=== PATIENT | female | born 1930 | race Caucasian/White ===

== ENCOUNTER 2017-04-17 15:28 | Inpatient (IN) | payer MEDICARE, OTHER ==
[2017-04-17] MEDS ORDERED: Sodium Chloride 0.9% 10 ML Syringe FLUSH PRN (16:00)
--- NOTE | 2017-04-17 16:06 | EDM.PDOC ---
ED HPI GENERAL MEDICAL PROBLEM - General Chief Complaint: Neurological Problem Stated Complaint: WEAK, BACK PAIN, CONFUSED, LOSS OF APPETITE Time Seen by Provider: 04/17/17 15:45 Source of Information: Reports: Patient, Family (mother) History Limitations: Reports: No Limitations - History of Present Illness INITIAL COMMENTS - FREE TEXT/NARRATIVE: Patient is a 86 year old female with history of Multiple Myeloma. Patient states she has been increasingly more fatigued over the past few days. States she can barely standup and ambulate with walker on her own accord. States she is feeling really weak. Past two evening she has slid out of bed requiring assistance up due to increased weakness. States two nights ago EMS utilized belt to help her up with increasing pain noted to the middle portion of her back. States she does bruise easily and has noted bruising to her back and arms. She did not hit her head or LOC. Patient continues to have pain to her back today described as only minor increase. Patient has history of T12 wedge fracture. Family states patient has been spending more time in bed recently due to weakness. Patient does wear a fentanyl 10 mg patch for pain. Denies any changes to medications. In addition the patient has lack of appetite. Family states noticed mild increase in confusion with repeated questions noted. Patient denies any fever/chills/nausea/vomiting, shortness of breath, chest pain , bloody stools, melena, or pain with urination. Family and patient are arranging changing code status from level 2 to DNR. Onset: Gradual Duration: Constant, Getting Worse, Waxing/Waning Location: Reports: Generalized Quality: Reports: Other (weakness) Improves with: Reports: None Worsens with: Reports: Other Context: Reports: Other Associated Symptoms: Reports: Confusion (mild), Malaise, Weakness. Denies: Chest Pain, Cough, Fever/Chills, Headaches, Nausea/Vomiting, Shortness of Breath , Syncope Treatments INSPECTOR EYEGLASS: Reports: Other (see below) (none stated) Lower Back Pain Score (Numeric/FACES): 10 - Related Data Allergies Allergy/AdvReac Type Severity Reaction Status Date / Time aspirin Allergy Swelling Verified 04/02/17 16:01 bacitracin Allergy Cannot Verified 04/02/17 16:01 [From Neosporin Remember ([id number])] bacitracin zinc Allergy Cannot Verified 05/09/17 16:01 [From Neosporin Remember ([id number])] carvedilol Allergy Itching Verified 04/02/17 16:01 neomycin sulfate Allergy Cannot Verified 04/02/17 16:01 [From Neosporin Remember ([id number])] Penicillins Allergy Itching Verified 04/02/17 16:01 polymyxin B Allergy Cannot Verified 04/02/17 16:01 [From Neosporin Remember ([id number])] prednisone Allergy Swollen Verified 04/02/17 16:01 Eyes sertraline HCl [From Zoloft] Allergy Swelling Verified 04/02/17 16:01 Sulfa (Sulfonamide Allergy Cannot Verified 04/02/17 16:01 Antibiotics) Remember Home Meds: Home Meds Glimepiride [Amaryl] 2 mg PO DAILY 03/14/16 [History] LORazepam 0.5 mg PO BEDTIME 03/14/16 [History] Primidone 50 mg PO BEDTIME 03/14/16 [History] Cholecalciferol (Vitamin D3) [Vitamin D] 2,000 mg PO DAILY 11/14/16 [History] Cyanocobalamin (Vitamin B-12) [Vitamin B-12] 1,000 mcg PO DAILY 11/14/16 [ History] LORazepam [Ativan] 0.25 mg PO QAM 11/14/16 [History] Methylphenidate HCl [Methylphenidate ER] 36 mg PO DAILY 11/14/16 [History] Sennosides [Senna] 2 tab PO ASDIRECTED PRN 11/14/16 [History] Ubidecarenone [Co Q-10] 40 mg PO DAILY 11/14/16 [History] Furosemide 20 mg PO DAILY #30 tablet 11/16/16 [Rx] Losartan [Cozaar] 25 mg PO DAILY 04/02/17 [History] Allopurinol [Zyloprim] 100 mg PO DAILY 04/04/17 [History] Aspirin [Low Dose Aspirin EC] 81 mg PO DAILY 04/04/17 [History] B&C/FA/Zinc/Copper Oxide/Vit E [Stress B-Complex Tablet] 1 tab PO DAILY [History] Clopidogrel Bisulfate [Plavix] 75 mg PO DAILY 04/04/17 [History] Hydrocodone/Acetaminophen [Hydrocodon-Acetaminophen 5-325] 2 tab PO QAM [History] Lidocaine 5% [Lidoderm 5%] 1 patch TOP Q24H 04/04/17 [History] Metoprolol Succinate [Toprol XL] 1 tab PO DAILY 04/04/17 [History] SitaGLIPtin [Januvia] 100 mg PO DAILY 04/04/17 [History] Acetaminophen [Tylenol Extra Strength] 500 mg PO Q6HR PRN 04/17/17 [History] Losartan [Cozaar] 25 mg PO BEDTIME 04/17/17 [History] MV-Mn/Lycop/Lut/Herbal [id number] [Phytomulti Tablet] 2 each PO DAILY 04/17/17 [ History] fentaNYL [Duragesic] 12 mcg TRDERM Q72H 04/17/17 [History] Past Medical History HEENT History: Reports: Impaired Vision Other HEENT History: multiple implants in mouth Cardiovascular History: Reports: High Cholesterol, Hypertension, SOB on Exertion Genitourinary History: Reports: Other (See Below) Other Genitourinary History: dribbles Musculoskeletal History: Reports: Arthritis Psychiatric History: Reports: Anxiety Endocrine/Metabolic History: Reports: Diabetes, Type II Hematologic History: Reports: Anemia, Iron Deficiency Oncologic (Cancer) History: Reports: Breast Other Oncologic History: multiple myloma - Past Surgical History HEENT Surgical History: Reports: Cataract Surgery GI Surgical History: Reports: Cholecystectomy Musculoskeletal Surgical History: Reports: Hip Replacement Social & Family History - Family History Family Medical History: Noncontributory - Tobacco Use Smoking Status *Q: Never Smoker Second Hand Smoke Exposure: No - Caffeine Use Caffeine Use: Reports: None Other Caffeine Use: Diet Coke---at least 1 per day - Recreational Drug Use Recreational Drug Use: No ED ROS GENERAL - Review of Systems Review Of Systems: See Below Constitutional: Reports: Malaise, Weakness, Decreased Appetite. Denies: Fever, Chills HEENT: Reports: No Symptoms Respiratory: Denies: Shortness of Breath, Cough, Sputum, Hemoptysis Cardiovascular: Denies: Chest Pain, Lightheadedness, Orthopnea, Palpitations, PND, Syncope GI/Abdominal: Reports: Decreased Appetite. Denies: Abdominal Pain, Black Stool , Bloody Stool, Constipation, Diarrhea, Hematemesis, Melena, Nausea, Vomiting : Denies: Dysuria Musculoskeletal: Reports: Back Pain (chronic no new changes) Skin: Reports: Bruising (present noted to the back and also forearms and) Neurological: Reports: Confusion (mild), Difficulty Walking (secondary weakness) , Weakness. Denies: Dizziness, Headache, Numbness, Tingling Hematologic/Lymphatic: Reports: Anemia, Easy Bleeding, Easy Bruising ED EXAM, GENERAL - Physical Exam Exam: See Below Exam Limited By: No Limitations General Appearance: Alert, WD/WN, No Apparent Distress Eye Exam: Bilateral Eye: PERRL Ears: Hearing Grossly Normal Nose: Normal Mucosa Throat/Mouth: Normal Inspection, Normal Oropharynx, Normal Voice, No Airway Compromise, Other (mildly dry oral mucosa) Head: Atraumatic, Normocephalic Neck: Normal Inspection, Supple, Non-Tender, Full Range of Motion. No: Lymphadenopathy (L), Lymphadenopathy (R) Respiratory/Chest: No Respiratory Distress, Lungs Clear, Normal Breath Sounds, No Accessory Muscle Use, Chest Non-Tender Cardiovascular: Normal Peripheral Pulses, Regular Rate, Rhythm Peripheral Pulses: 2+: Radial (L), Radial (R) GI/Abdominal: Normal Bowel Sounds, Soft, Non-Tender, No Organomegaly, No Distention Rectal (Female) Exam: Normal Rectal Tone, Black Stool, Heme + Stool. No: Tenderness Back Exam: Full Range of Motion, Other (presenting noted laterally to the spine around the T12 location bilaterally. No increased swelling noted. Minimal pain on examination). No: Paraspinal Tenderness, Vertebral Tenderness Extremities: Normal Inspection, Normal Range of Motion, Non-Tender, Normal Capillary Refill, Pedal Edema (trace), Other (multiple old bruises noted to the forearm.) Neurological: Alert, Oriented, CN II-XII Intact, Normal Cognition, No Motor/ Sensory Deficits Psychiatric: Normal Affect, Normal Mood Skin Exam: Warm, Dry, Intact, Normal Color Course - Vital Signs Last Recorded V/S: Last Vital Signs Temp 97.8 F 04/17/17 15:37 Pulse 79 04/17/17 15:37 Resp 18 04/17/17 15:37 BP Pulse Ox 95 04/17/17 15:37 - Orders/Labs/Meds Orders: Active Orders 24 hr Category Date Time Status Communication Order [RC] STAT Care 04/17/17 18:23 Active EKG Documentation Completion [RC] STAT Care 04/17/17 16:00 Active Glucose [Blood Glucose Check, Bedside] [RC] ONETIME Care 04/17/17 17:39 Active Peripheral IV Care [RC] . DIRECTED Care 04/17/17 16:01 Active CULTURE URINE [RM] Stat Lab 04/17/17 16:45 Received TYPE AND SCREEN [BBK] Stat Lab 04/17/17 15:45 Results Sodium Chloride 0.9% [Saline Flush] Med 04/17/17 16:00 Active 10 ml FLUSH ASDIRECTED PRN Peripheral IV Insertion Adult [OM.PC] Stat Oth 04/17/17 16:00 Ordered Transfuse PRBC [Transfuse Red Blood Cells] [COMM] Stat Oth 04/17/17 16:29 Ordered Medication Orders Acetaminophen (Tylenol) 650 mg PO Q4H PRN PRN Reason: Pain (Mild 1-3)/fever Hydrocodone Bitart/Acetaminophen (Touchet 325-5 Mg) 2 tab PO QAM [facility] Hydrocodone Bitart/Acetaminophen (Touchet 325-5 Mg) 1 tab PO Q4H PRN PRN Reason: Pain (moderate 4-6) Albuterol (Proventil Neb Soln) 2.5 mg NEB Q2H PRN PRN Reason: Shortness Of Breath/wheezing Allopurinol (Zyloprim) 100 mg PO DAILY [facility] Aspirin (Halfprin) 81 mg PO DAILY [facility] Bisacodyl (Dulcolax) 5 mg PO DAILY PRN PRN Reason: Constipation Cholecalciferol (Vitamin D3) 2,000 units PO DAILY [facility] Clopidogrel Bisulfate (Plavix) 75 mg PO DAILY [facility] Cyanocobalamin (Vitamin B12) 1,000 mcg PO DAILY [facility] Docusate Sodium (Colace) 100 mg PO BID PRN PRN Reason: Constipation Fentanyl (Duragesic) 12 mcg TRDERM Q72H [facility] Furosemide (Lasix) 20 mg PO DAILY [facility] Glimepiride (Amaryl) 2 mg PO DAILY [facility] Hydralazine HCl (Apresoline) 10 mg IVPUSH Q4H PRN PRN Reason: Hypertension Promethazine HCl 12.5 mg/ (Sodium Chloride) 50.5 mls @ 100 mls/hr IV Q6H PRN PRN Reason: Nausea/Vomiting Lidocaine (Lidoderm 5%) mg TOP Q24H [facility] Lorazepam (Ativan) 0.25 mg PO QAM [facility] Lorazepam (Ativan) 0.5 mg PO BEDTIME [facility] Lorazepam (Ativan) 0.25 mg IV Q6H PRN PRN Reason: Anxiety Losartan Potassium (Cozaar) 25 mg PO BEDTIME [facility] Magnesium Sulfate (Pharmacy To Dose - Magnesium Replacement) 1 dose .XX ASDIRECTED [facility] Metoprolol Succinate (Toprol Xl) 100 mg PO DAILY [facility] Metoprolol Tartrate (Lopressor) 5 mg IVPUSH Q4H PRN PRN Reason: Tachycardia Miscellaneous Information (Remove Patch) 1 ea TRDERM Q72H [facility] Non-Formulary Medication (Acetaminophen) 500 mg PO Q6HR PRN PRN Reason: Pain Non-Formulary Medication (B&C/Fa/Zinc/Copper Oxide/Vit E [Stress B-Complex Tablet]) 1 tab PO DAILY [facility] Non-Formulary Medication (Mv-Mn/Lycop/Lut/Herbal [id number] [Phytomulti Tablet]) 2 each PO DAILY [facility] Non-Formulary Medication (Methylphenidate Hcl [Methylphenidate Er]) 36 mg PO DAILY [facility] Non-Formulary Medication (Ubidecarenone [Co Q-10]) 40 mg PO DAILY [facility] Ondansetron HCl (Zofran) 4 mg IV Q6H PRN PRN Reason: Nausea/Vomiting Polyethylene Glycol (Miralax) 17 gm PO DAILY PRN PRN Reason: Constipation Potassium Chloride (Pharmacy To Dose - Potassium Replacement) 1 dose .XX ASDIRECTED [facility] Primidone (Mysoline) 50 mg PO BEDTIME [facility] Senna (Senna) mg PO ASDIRECTED PRN PRN Reason: Constipation Senna/Docusate Sodium (Senna Plus) 1 tab PO BID PRN PRN Reason: Constipation Sitagliptin Phosphate (Januvia) 100 mg PO DAILY [facility] Sodium Chloride (Saline Flush) 10 ml FLUSH ASDIRECTED PRN PRN Reason: Keep Vein Open Last Admin: 04/17/17 16:15 Dose: 10 ml Temazepam (Restoril) 7.5 mg PO BEDTIME PRN PRN Reason: Sleep Labs: Laboratory Tests 04/17/17 04/17/17 04/17/17 Range/Units 15:45 15:45 15:45 WBC 5.78 (3.98-10.04) K/mm3 RBC 2.24 L (3.98-5.22) M/mm3 Hgb 6.7 L* (11.2-15.7) gm/L Hct 21.8 L (34.1-44.9) % MCV 97.3 H (79.4-94.8) fl MCH 29.9 (25.6-32.2) pg MCHC 30.7 L (32.2-35.5) g/dl RDW Std Deviation 62.2 H (36.4-46.3) fL Plt Count 289 (182-369) K/mm3 MPV 8.3 L (9.4-12.3) fl Neut % (Auto) 59.2 (34.0-71.1) % Lymph % (Auto) 26.0 (19.3-51.7) % [place] % (Auto) 11.6 (4.7-12.5) % Eos % (Auto) 1.9 (0.7-5.8) Baso % (Auto) 0.3 (0.1-1.2) % Neut # (Auto) 3.42 (1.56-6.13) K/mm3 Lymph # (Auto) 1.50 (1.18-3.74) K/mm3 [place] # (Auto) 0.67 H (0.24-0.36) K/mm3 Eos # (Auto) 0.11 (0.04-0.36) K/mm3 Baso # (Auto) 0.02 (0.01-0.08) K/mm3 Manual Slide Review Abnormal smear Sodium 136 (136-145) mEq/L Potassium 4.6 (3.5-5.1) mEq/L Chloride 106 (98-107) mEq/L Carbon Dioxide 19 L (21-32) mEq/L Anion Gap TNP BUN TNP Creatinine TNP Est Cr Clr Drug Dosing TNP Estimated GFR (MDRD) TNP BUN/Creatinine Ratio TNP Glucose TNP Calcium TNP Total Bilirubin TNP AST TNP ALT TNP Alkaline Phosphatase 73 (46-116) U/L Troponin I 0.050 (0.00-0.056) ng/mL B-Natriuretic Peptide (0-100) pg/mL Total Protein TNP Albumin TNP Globulin TNP Albumin/Globulin Ratio TNP TSH 3rd Generation 0.706 (0.358-3.74) uIU/mL Urine Color (Yellow) Urine Appearance (Clear) Urine pH (5.0-8.0) Ur Specific [place] (1.005-1.030) Urine Protein (Negative) Urine Glucose (UA) (Negative) Urine Ketones (Negative) Urine Occult Blood (Negative) Urine Nitrite (Negative) Urine Bilirubin (Negative) Urine Urobilinogen (0.2-1.0) Ur Leukocyte Esterase (Negative) Urine RBC (0-5) /hpf Urine WBC (0-5) /hpf Ur Epithelial Cells (0-5) /hpf Urine Bacteria (FEW) /hpf Hyaline Casts (0-5) /lpf Urine Mucus (FEW) /hpf Blood Type O POSITIVE Gel Antibody Screen Negative Crossmatch See Detail 04/17/17 04/17/17 Range/Units 15:45 16:45 WBC (3.98-10.04) K/mm3 RBC (3.98-5.22) M/mm3 Hgb (11.2-15.7) gm/L Hct (34.1-44.9) % MCV (79.4-94.8) fl MCH (25.6-32.2) pg MCHC (32.2-35.5) g/dl RDW Std Deviation (36.4-46.3) fL Plt Count (182-369) K/mm3 MPV (9.4-12.3) fl Neut % (Auto) (34.0-71.1) % Lymph % (Auto) (19.3-51.7) % [place] % (Auto) (4.7-12.5) % Eos % (Auto) (0.7-5.8) Baso % (Auto) (0.1-1.2) % Neut # (Auto) (1.56-6.13) K/mm3 Lymph # (Auto) (1.18-3.74) K/mm3 [place] # (Auto) (0.24-0.36) K/mm3 Eos # (Auto) (0.04-0.36) K/mm3 Baso # (Auto) (0.01-0.08) K/mm3 Manual Slide Review Sodium (136-145) mEq/L Potassium (3.5-5.1) mEq/L Chloride (98-107) mEq/L Carbon Dioxide (21-32) mEq/L Anion Gap BUN Creatinine Est Cr Clr Drug Dosing Estimated GFR (MDRD) BUN/Creatinine Ratio Glucose Calcium Total Bilirubin AST ALT Alkaline Phosphatase (46-116) U/L Troponin I (0.00-0.056) ng/mL B-Natriuretic Peptide 1650 H (0-100) pg/mL Total Protein Albumin Globulin Albumin/Globulin Ratio TSH 3rd Generation (0.358-3.74) uIU/mL Urine Color [place] H (Yellow) Urine Appearance Slt cloudy H (Clear) Urine pH 5.5 (5.0-8.0) Ur Specific [place] 1.020 (1.005-1.030) Urine Protein 2+ H (Negative) Urine Glucose (UA) Negative (Negative) Urine Ketones Negative (Negative) Urine Occult Blood Trace-lysed H (Negative) Urine Nitrite Negative (Negative) Urine Bilirubin Negative (Negative) Urine Urobilinogen 0.2 (0.2-1.0) Ur Leukocyte Esterase Negative (Negative) Urine RBC 0-5 (0-5) /hpf Urine WBC 0-5 (0-5) /hpf Ur Epithelial Cells 10-20 H (0-5) /hpf Urine Bacteria Moderate H (FEW) /hpf Hyaline Casts 5-10 H (0-5) /lpf Urine Mucus Moderate H (FEW) /hpf Blood Type Gel Antibody Screen Crossmatch Meds: Medications Generic Name Dose Route Start Last Admin Trade Name Freq PRN Reason Stop Dose Admin Acetaminophen 650 mg 04/17/17 19:54 Tylenol PO Q4H PRN Pain (Mild 1-3)/fever Hydrocodone Bitart/Acetaminophen 2 tab 04/18/17 08:00 Touchet 325-5 Mg PO QAM CARM[facility]A Hydrocodone Bitart/Acetaminophen 1 tab 04/17/17 19:54 Touchet 325-5 Mg PO Q4H PRN Pain (moderate 4-6) Albuterol 2.5 mg 04/17/17 19:54 Proventil Neb Soln NEB Q2H PRN Shortness Of Breath/wheezing Allopurinol 100 mg 04/18/17 09:00 Zyloprim PO DAILY [facility] Aspirin 81 mg 04/18/17 09:00 Halfprin PO DAILY [facility] Bisacodyl 5 mg 04/17/17 19:54 Dulcolax PO DAILY PRN Constipation Cholecalciferol 2,000 units 04/18/17 09:00 Vitamin D3 PO DAILY [facility] Clopidogrel Bisulfate 75 mg 04/18/17 09:00 Plavix PO DAILY [facility] Cyanocobalamin 1,000 mcg 04/18/17 09:00 Vitamin B12 PO DAILY [facility] Docusate Sodium 100 mg 04/17/17 19:54 Colace PO BID PRN Constipation Fentanyl 12 mcg 04/18/17 08:00 Duragesic TRDERM Q72H [facility] Furosemide 20 mg 04/18/17 09:00 Lasix PO DAILY [facility] Glimepiride 2 mg 04/18/17 09:00 Amaryl PO DAILY [facility] Hydralazine HCl 10 mg 04/17/17 19:54 Apresoline IVPUSH Q4H PRN Hypertension Promethazine HCl 12.5 mg/ 50.5 mls @ 100 mls/hr 04/17/17 19:54 Sodium Chloride IV Q6H PRN Nausea/Vomiting Lidocaine mg 04/17/17 20:00 Lidoderm 5% TOP Q24H [facility] Lorazepam 0.25 mg 04/18/17 08:00 Ativan PO QAM [facility] Lorazepam 0.5 mg 04/17/17 21:00 Ativan PO BEDTIME [facility] Lorazepam 0.25 mg 04/17/17 19:54 Ativan IV Q6H PRN Anxiety Losartan Potassium 25 mg 04/17/17 21:00 Cozaar PO BEDTIME [facility] Magnesium Sulfate 1 dose 04/17/17 20:00 Pharmacy To Dose - Magnesium Replacement .XX ASDIRECTED [facility] Metoprolol Succinate 100 mg 04/18/17 09:00 Toprol Xl PO DAILY [facility] Metoprolol Tartrate 5 mg 04/17/17 19:54 Lopressor IVPUSH Q4H PRN Tachycardia Miscellaneous Information 1 ea 04/18/17 08:00 Remove Patch TRDERM Q72H [facility] Non-Formulary Medication 500 mg 04/17/17 19:52 Acetaminophen PO Q6HR PRN Pain Non-Formulary Medication 1 tab 04/18/17 09:00 B&C/Fa/Zinc/Copper Oxide/Vit E [Stress B-Complex Tablet] PO DAILY [facility] Non-Formulary Medication 2 each 04/18/17 09:00 Mv-Mn/Lycop/Lut/Herbal [id number] [Phytomulti Tablet] PO DAILY [facility] Non-Formulary Medication 36 mg 04/18/17 09:00 Methylphenidate Hcl [Methylphenidate Er] PO DAILY [facility] Non-Formulary Medication 40 mg 04/18/17 09:00 Ubidecarenone [Co Q-10] PO DAILY [facility] Ondansetron HCl 4 mg 04/17/17 19:54 Zofran IV Q6H PRN Nausea/Vomiting Polyethylene Glycol 17 gm 04/17/17 19:54 Miralax PO DAILY PRN Constipation Potassium Chloride 1 dose 04/17/17 20:00 Pharmacy To Dose - Potassium Replacement .XX ASDIRECTED [facility] Primidone 50 mg 04/17/17 21:00 Mysoline PO BEDTIME [facility] Senna mg 04/17/17 19:52 Senna PO ASDIRECTED PRN Constipation Senna/Docusate Sodium 1 tab 04/17/17 19:54 Senna Plus PO BID PRN Constipation Sitagliptin Phosphate 100 mg 04/18/17 09:00 Januvia PO DAILY [facility] Sodium Chloride 10 ml 04/17/17 16:00 04/17/17 16:15 Saline Flush FLUSH 10 ml ASDIRECTED PRN Administration Keep Vein Open Temazepam 7.5 mg 04/17/17 19:54 Restoril PO BEDTIME PRN Sleep Discontinued Medications Generic Name Dose Route Start Last Admin Trade Name Freq PRN Reason Stop Dose Admin Acetaminophen 650 mg 04/17/17 17:03 04/17/17 17:07 Tylenol PO 04/17/17 17:04 650 mg NOW ONE Administration Furosemide 20 mg 04/17/17 16:29 04/17/17 16:49 Lasix IVPUSH 04/17/17 16:30 20 mg NOW ONE Administration Furosemide 20 mg 04/17/17 18:18 Lasix IVPUSH 04/17/17 18:19 ONETIME ONE Sodium Chloride 500 mls @ 250 mls/hr 04/17/17 16:27 04/17/17 16:49 Normal Saline IV 04/17/17 18:26 250 mls/hr .BOLUS ONE Administration Non-Formulary Medication 25 mg 04/18/17 09:00 Losartan PO DAILY [facility] - Re-Assessments/Exams Free Text/Narrative Re-Assessment/Exam: Ordered peripheral IV with NS 250ml bolus, patient cannot urinate. Initial labs and orders include: CBC, C14,Troponin, TSH, UA, EKG, Type and screen. 1622 HGB reported back at 6.7. Hemoccult test was positive for blood. Ordered transfusion of 1 PRBC per guideline. Reviewed with . 1624 Labs reviewed: WBC 5.78, Platelets 289. Remaining labs are pending. EKG sinus rhythm with a normal P axis at a rate of 71. IA interval is 165, QTC 428, anterior ST elevation probably due to LVH flipped T waves noted in inferiorly. 04/17/17 17:38 notified by lab that certain labs were unable to be adequately obtained due to interference. This included: Albumin, alkaline phosphatase, ALT , AST, BUN, calcium, total bilirubin, glucose, and total protein. Ordered rapid bedside glucose. Sodium 136, potassium 4.6, chloride 106, CO2 19, troponin 0.050, alkaline phosphatase 273, TSH 0.706. UA color [place], slightly cloudy, 2+ protein, trace occult blood, epithelial cells 10-20, urine bacteria moderate high, hyaline cast 5-10, urine mucus moderate, nitrates/LE/urine RBCs/urine WBC WNL. Urine culture ordered. 04/17/17 18:16 Dr. Villagomez has accepted patient. Inpatient status to [facility] with telemetry. Requested additional 1 unit of PRBCS ordered. Fluids have been stopped. Will order additional lasix 20mg after 1st unit of blood. Nursing communications placed for 1unit to be ran in at 4 hours. 2nd unit will be administered on the floor. BNP 1650. Admit orders placed by Dr. Andrade. 04/17/17 20:09 Ordered transfusion of 3 units of PRBC per Dr. Alvarenga orders. They did not see my order to transfuse 2 units of blood since it was placed in the other category. Nursing staff is discussing this with lab. Departure - Departure Time of Disposition: 18:21 Disposition: Admitted As Inpatient 68 Condition: poor Clinical Impression: Anemia Qualifiers: Anemia type: other cause Other causes of anemia: other cause, not classified Qualified Code(s): D64.89 - Other specified anemias CHF (congestive heart failure) Qualifiers: Congestive heart failure type: unspecified congestive heart failure type Congestive heart failure chronicity: acute Qualified Code(s): I50.9 - Heart failure, unspecified GI bleed Qualifiers: GI bleed type/associated pathology: unspecified gastrointestinal hemorrhage type Qualified Code(s): K92.2 - Gastrointestinal hemorrhage, unspecified - Discharge Information - My Orders Last 24 Hours: My Active Orders 04/17/17 15:45 TYPE AND SCREEN [BBK] Stat 04/17/17 16:00 EKG Documentation Completion [RC] STAT Sodium Chloride 0.9% [Saline Flush] 10 ml FLUSH ASDIRECTED PRN Peripheral IV Insertion Adult [OM.PC] Stat 04/17/17 16:01 Peripheral IV Care [RC] . DIRECTED 04/17/17 16:29 Transfuse PRBC [Transfuse Red Blood Cells] [COMM] Stat 04/17/17 16:45 CULTURE URINE [RM] Stat 04/17/17 17:39 Glucose [Blood Glucose Check, Bedside] [RC] ONETIME 04/17/17 18:23 Communication Order [RC] STAT - Assessment/Plan Last 24 Hours: My Active Orders 04/17/17 15:45 TYPE AND SCREEN [BBK] Stat 04/17/17 16:00 EKG Documentation Completion [RC] STAT Sodium Chloride 0.9% [Saline Flush] 10 ml FLUSH ASDIRECTED PRN Peripheral IV Insertion Adult [OM.PC] Stat 04/17/17 16:01 Peripheral IV Care [RC] . DIRECTED 04/17/17 16:29 Transfuse PRBC [Transfuse Red Blood Cells] [COMM] Stat 04/17/17 16:45 CULTURE URINE [RM] Stat 04/17/17 17:39 Glucose [Blood Glucose Check, Bedside] [RC] ONETIME 04/17/17 18:23 Communication Order [RC] STAT
[2017-04-17] MEDS ORDERED: Sodium Chloride 0.9% 500 ML IV ONE (16:27)
[2017-04-17] MEDS ORDERED: Furosemide 40 MG/4 ML VIAL IVPUSH ONE (16:29)
[2017-04-17] MEDS ORDERED: Acetaminophen 325 MG Tab PO ONE (17:03)
--- NOTE | 2017-04-17 18:17 | PCM.HP ---
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 In the past couple of nights patient slid out of bed and EMS had to help her get up. Patient also report back pain with hx/o T12 fracture. She denies any fever, chills, nausea, vomiting, hematemesis, shortness of breath, chest pain, GI bleed, black tarry stools, or urinary issues. Patient carries a hx/o monoclonal gammopathy i.e. Asymptomatic/Indolent MM. She has being followed Dr. Payne at [facility]. She is schedule to have a BM biopsy in the morning with Dr. Fernandez. Her initial work up in ED shows a CBC remarkable for Hgb 6.7 and Hct 21.8. Her platelet is normal. Her chemistry is significant for CO2 19 and BNP 1650. The rest of her chemistry were incomplete due to interference from her paraproteins level. UA is not impressive for UTI. Patient is being admitted for Symptomatic Anemia. She is DNR/DNI at this time. Lower Back Pain Score (Numeric/FACES): 10 - Related Data Allergies/Adverse Reactions: Allergies Allergy/AdvReac Type Severity Reaction Status Date / Time aspirin Allergy Swelling Verified 04/02/17 16:01 bacitracin Allergy Cannot Verified 04/02/17 16:01 [From Neosporin Remember ([id number])] bacitracin zinc Allergy Cannot Verified 04/02/17 16:01 [From Neosporin Remember ([id number])] carvedilol Allergy Itching Verified 04/02/17 16:01 neomycin sulfate Allergy Cannot Verified 04/02/17 16:01 [From Neosporin Remember ([id number])] Penicillins Allergy Itching Verified 04/02/17 16:01 polymyxin B Allergy Cannot Verified 04/02/17 16:01 [From Neosporin Remember ([id number])] prednisone Allergy Swollen Verified 04/02/17 16:01 Eyes sertraline HCl [From Zoloft] Allergy Swelling Verified 04/02/17 16:01 Sulfa (Sulfonamide Allergy Cannot Verified 04/02/17 16:01 Antibiotics) Remember Home Medications: Home Meds Glimepiride [Amaryl] 2 mg PO DAILY 03/14/16 [History] LORazepam 0.5 mg PO BEDTIME 03/14/16 [History] Primidone 50 mg PO BEDTIME 03/14/16 [History] Cholecalciferol (Vitamin D3) [Vitamin D] 2,000 mg PO DAILY 11/14/16 [History] Cyanocobalamin (Vitamin B-12) [Vitamin B-12] 1,000 mcg PO DAILY 11/14/16 [ History] LORazepam [Ativan] 0.25 mg PO QAM 11/14/16 [History] Methylphenidate HCl [Methylphenidate ER] 36 mg PO DAILY 11/14/16 [History] Sennosides [Senna] 2 tab PO ASDIRECTED PRN 11/14/16 [History] Ubidecarenone [Co Q-10] 40 mg PO DAILY 11/14/16 [History] Furosemide 20 mg PO DAILY #30 tablet 11/16/16 [Rx] Losartan [Cozaar] 25 mg PO DAILY 04/02/17 [History] Allopurinol [Zyloprim] 100 mg PO DAILY 04/04/17 [History] Aspirin [Low Dose Aspirin EC] 81 mg PO DAILY 04/04/17 [History] B&C/FA/Zinc/Copper Oxide/Vit E [Stress B-Complex Tablet] 1 tab PO DAILY [History] Clopidogrel Bisulfate [Plavix] 75 mg PO DAILY 04/04/17 [History] Hydrocodone/Acetaminophen [Hydrocodon-Acetaminophen 5-325] 2 tab PO QAM [History] Lidocaine 5% [Lidoderm 5%] 1 patch TOP Q24H 04/04/17 [History] Metoprolol Succinate [Toprol XL] 100 mg PO DAILY 04/04/17 [History] SitaGLIPtin [Januvia] 100 mg PO DAILY 04/04/17 [History] Acetaminophen [Tylenol Extra Strength] 500 mg PO Q6HR PRN 04/17/17 [History] Losartan [Cozaar] 25 mg PO BEDTIME 04/17/17 [History] MV-Mn/Lycop/Lut/Herbal [id number] [Phytomulti Tablet] 2 each PO DAILY 04/17/17 [ History] fentaNYL [Duragesic] 12 mcg TRDERM Q72H 04/17/17 [History] Past Medical History HEENT History: Reports: Impaired Vision Other HEENT History: multiple implants in mouth Cardiovascular History: Reports: High Cholesterol, Hypertension, SOB on Exertion Genitourinary History: Reports: Other (See Below) Other Genitourinary History: dribbles Musculoskeletal History: Reports: Arthritis Psychiatric History: Reports: Anxiety Endocrine/Metabolic History: Reports: Diabetes, Type II Hematologic History: Reports: Anemia, Iron Deficiency Oncologic (Cancer) History: Reports: Breast Other Oncologic History: multiple myloma - Past Surgical History HEENT Surgical History: Reports: Cataract Surgery GI Surgical History: Reports: Cholecystectomy Musculoskeletal Surgical History: Reports: Hip Replacement Social & Family History - Family History Family Medical History: Noncontributory - Tobacco Use Smoking Status *Q: Never Smoker Second Hand Smoke Exposure: No - Caffeine Use Caffeine Use: Reports: None Other Caffeine Use: Diet Coke---at least 1 per day - Recreational Drug Use Recreational Drug Use: No H&P Review of Systems - Review of Systems: Review Of Systems: See Below General: Reports: Malaise, Weakness, Fatigue, Decreased Appetite. Denies: Fever , Chills HEENT: Reports: No Symptoms Pulmonary: Denies: Shortness of Breath, Wheezing, Cough, Sputum Cardiovascular: Denies: Chest Pain, Palpitations, Dyspnea on Exertion, Lightheadedness, Syncope Gastrointestinal: Denies: Abdominal Pain, Nausea, Vomiting Genitourinary: Reports: No Symptoms Musculoskeletal: Reports: Back Pain Skin: Denies: Cyanosis, Pallor, Rash, Erythema, Wound Psychiatric: Denies: Depression, Anxiety, Agitation, Hallucinations Neurological: Reports: Confusion (mild), Difficulty Walking, Weakness, Gait Disturbance Hematologic/Lymphatic: Reports: Anemia, Easy Bleeding Immunologic: Reports: No Symptoms Exam - Exam Exam: See Below - Vital Signs Vital Signs: Last Vital Signs Temp 36.6 C 04/17/17 15:37 Pulse 79 04/17/17 15:37 Resp 18 04/17/17 15:37 BP Pulse Ox 95 04/17/17 15:37 Weight: 81.647 kg - Exam General: Alert, Oriented, Cooperative, Mild Distress HEENT: Conjunctiva Clear, EACs Clear, EOMI, Hearing Intact, Mucosa Moist & [place] , Nares Patent, Normal Nasal Septum, Posterior Pharynx Clear, Pupils Equal, Pupils Reactive Neck: Supple, Trachea Midline, +2 Carotid Pulse wo Bruit, Full Range of Motion Lungs: Clear to Auscultation, Normal Respiratory Effort Cardiovascular: Regular Rate, Regular Rhythm, Systolic Murmur Abdomen: Normal Bowel Sounds, Soft. No: Organomegaly, Tenderness (Female) Exam: Deferred Rectal (Female) Exam: Deferred Back Exam: Normal Inspection, Decreased Range of Motion, Muscle Spasm Extremities: Normal Inspection, Normal Pulses. No: Cyanosis, Edema Peripheral Pulses: 2+: Dorsalis Pedis (L), Dorsalis Pedis (R) Skin: Warm, Dry, Intact Neuro Extensive - Mental Status: Normal Cognition, Memory Intact Neuro Extensive - Motor, Sensory, Reflexes: CN II-XII Intact (limited but failry intac), Abnormal Gait Psychiatric: Alert, Normal Affect, Normal Mood - Patient Data Lab Results last 24 hrs: Laboratory Results - last 24 hr 04/17/17 04/17/17 04/17/17 Range/Units 15:45 15:45 16:45 WBC 5.78 (3.98-10.04) K/mm3 RBC 2.24 L (3.98-5.22) M/mm3 Hgb 6.7 L* (11.2-15.7) gm/L Hct 21.8 L (34.1-44.9) % MCV 97.3 H (79.4-94.8) fl MCH 29.9 (25.6-32.2) pg MCHC 30.7 L (32.2-35.5) g/dl RDW Std Deviation 62.2 H (36.4-46.3) fL Plt Count 289 (182-369) K/mm3 MPV 8.3 L (9.4-12.3) fl Neut % (Auto) 59.2 (34.0-71.1) % Lymph % (Auto) 26.0 (19.3-51.7) % [place] % (Auto) 11.6 (4.7-12.5) % Eos % (Auto) 1.9 (0.7-5.8) Baso % (Auto) 0.3 (0.1-1.2) % Neut # (Auto) 3.42 (1.56-6.13) K/mm3 Lymph # (Auto) 1.50 (1.18-3.74) K/mm3 [place] # (Auto) 0.67 H (0.24-0.36) K/mm3 Eos # (Auto) 0.11 (0.04-0.36) K/mm3 Baso # (Auto) 0.02 (0.01-0.08) K/mm3 Manual Slide Review Abnormal smear Sodium 136 (136-145) mEq/L Potassium 4.6 (3.5-5.1) mEq/L Chloride 106 (98-107) mEq/L Carbon Dioxide 19 L (21-32) mEq/L Anion Gap TNP BUN TNP Creatinine TNP Est Cr Clr Drug Dosing TNP Estimated GFR (MDRD) TNP BUN/Creatinine Ratio TNP Glucose TNP Calcium TNP Total Bilirubin TNP AST TNP ALT TNP Alkaline Phosphatase 73 (46-116) U/L Troponin I 0.050 (0.00-0.056) ng/mL Total Protein TNP Albumin TNP Globulin TNP Albumin/Globulin Ratio TNP TSH 3rd Generation 0.706 (0.358-3.74) uIU/mL Urine Color Sally H (Yellow) Urine Appearance Slt cloudy H (Clear) Urine pH 5.5 (5.0-8.0) Ur Specific [place] 1.020 (1.005-1.030) Urine Protein 2+ H (Negative) Urine Glucose (UA) Negative (Negative) Urine Ketones Negative (Negative) Urine Occult Blood Trace-lysed H (Negative) Urine Nitrite Negative (Negative) Urine Bilirubin Negative (Negative) Urine Urobilinogen 0.2 (0.2-1.0) Ur Leukocyte Esterase Negative (Negative) Urine RBC 0-5 (0-5) /hpf Urine WBC 0-5 (0-5) /hpf Ur Epithelial Cells 10-20 H (0-5) /hpf Urine Bacteria Moderate H (FEW) /hpf Hyaline Casts 5-10 H (0-5) /lpf Urine Mucus Moderate H (FEW) /hpf Result Diagrams: 04/17/17 15:45 04/17/17 15:45 *Q Meaningful Use (ADM) - VTE *Q VTE Criteria *Q: - Stroke *Q Stroke Criteria *Q: - AMI *Q AMI Criteria *Q: Problem List Initiated/Reviewed/Updated: Yes Orders Last 24hrs: Active Orders 24 hr Category Date Time Status EKG Documentation Completion [RC] STAT Care 04/17/17 16:00 Active Glucose [Blood Glucose Check, Bedside] [RC] ONETIME Care 04/17/17 17:39 Active Peripheral IV Care [RC] . DIRECTED Care 04/17/17 16:01 Active TYPE AND SCREEN [BBK] Stat Lab 04/17/17 15:45 Received Sodium Chloride 0.9% [Normal Saline] 500 ml Med 04/17/17 16:27 Active IV .BOLUS Sodium Chloride 0.9% [Saline Flush] Med 04/17/17 16:00 Active 10 ml FLUSH ASDIRECTED PRN Peripheral IV Insertion Adult [OM.PC] Stat Oth 04/17/17 16:00 Ordered Transfuse PRBC [Transfuse Red Blood Cells] [COMM] Stat Oth 04/17/17 16:29 Ordered Medication Orders Sodium Chloride (Normal Saline) 500 mls @ 250 mls/hr IV .BOLUS ONE Stop: 04/17/17 18:26 Last Admin: 04/17/17 16:49 Dose: 250 mls/hr Sodium Chloride (Saline Flush) 10 ml FLUSH ASDIRECTED PRN PRN Reason: Keep Vein Open Last Admin: 04/17/17 16:15 Dose: 10 ml Assessment/Plan Comment:: Assessment/Plan: Acute: Symptomatic Anemia - 2/2 evolving MM +/- GI Bleed - ? Hem-occult pos per ED - Hgb 6.7 on admission - Typed and crossed 3 units of PRBC - Recently had transfusion of 2 units PRBC 2 weeks ago - Monitor for volume overload - Consulted Dr. Fernandez for further eval Evolving MM from [place] MM (Indolent) - Likely Malignant at this time awaiting BM Biopsy to confirm it - Reviewed labs since 2015 - She is positive for Urine monoclonal [place] Light chain (Bence Duron Proteins) and Serum IgG [place] Monoclonal Gammopathy - Free light chains has been going up in level on her most recent lab - Symptoms suggestive of MM: Anemia, Bone Lesion and possible worsening renal function (Abnormal BMP level due to interference by the paraproteins) - Defer to see Dr. Payne after discharge - She supposed to have a BM biopsy tomorrow with Dr. Fernandez Generalized Weakness - 2/2 Above - PT/OT consult T12 Compression - Spoke to Dr. Payne. it seems this may have been present a month ago when she had he skeletal survey - Patient also has hx/o Osteoporosis per daughter - Will obtain chart from her PCP Elevated BNP Level of 1650 - HF with reduced EF 40 with RWMA and Valvular Dysfunction 11/15/2016 - HF protocol: diuretic, salt/fluid restrictions, Is/Os and daily weights Chronic: HTN HLD VERDUZCO OA DM2 CARLA HF With Reduced EF 40% with RWMA 11/15/2016 Anxiety Plan: Admit to the floor with Tele Resume Home Meds Routine AM Labs Bumex 0.5 mg IVP x 2 doses in between transfusion PT/OT consult Fall Precaution SW/CM for d/c Recommend SNF/NH placement Consider Hospice/Palliative Care Code status: DNR/DNI Poor Prognosis given her co-morbid conditions and advanced age
[2017-04-17] MEDS ORDERED: Furosemide 20 MG/2 ML VIAL IVPUSH ONE (18:18)
[2017-04-17] MEDS ORDERED: Non-Formulary Medication 1 Each (Acetaminophen 500 MG) PO PRN (19:52)
[2017-04-17] MEDS ORDERED: Sennosides 8.6 MG Tab PO PRN (19:52)
[2017-04-17] MEDS ORDERED: hydrALAZINE 20 MG/ML SDV IVPUSH PRN (19:54)
[2017-04-17] MEDS ORDERED: Promethazine 12.5 MG in Sodium Chloride 0.9% 50 ML IV PRN (19:54)
[2017-04-17] MEDS ORDERED: LORazepam 2 MG/ML MDV IV PRN (19:54)
[2017-04-17] MEDS ORDERED: Polyethylene Glycol 3350 Powder 17 GM Packet PO PRN (19:54)
[2017-04-17] MEDS ORDERED: Metoprolol Tartrate 5 MG/5 ML SDV IVPUSH PRN (19:54)
[2017-04-17] MEDS ORDERED: Ondansetron 4 MG/2 ML SDV IV PRN (19:54)
[2017-04-17] MEDS ORDERED: Docusate Sodium 100 MG Cap PO PRN (19:54)
[2017-04-17] MEDS ORDERED: Albuterol 0.083% 2.5 MG/3 ML Neb Soln NEB PRN (19:54)
[2017-04-17] MEDS ORDERED: Temazepam 7.5 MG Cap PO PRN (19:54)
[2017-04-17] MEDS ORDERED: Lidocaine 5% 700 MG Patch TOP SCH (20:00)
[2017-04-17] MEDS ORDERED: Sodium Chloride 0.9% 250 ML ONE (21:00)
[2017-04-17] MEDS: LORazepam 0.5 MG Tab PO SCH (22:55)
[2017-04-17] MEDS: Primidone 50 MG Tab PO SCH (22:56)
[2017-04-17] MEDS: Losartan 25 MG Tab PO SCH (22:59)
[2017-04-17] MEDS: Acetaminophen/HYDROcodone 325-5 MG Tab PO PRN (23:02)
[2017-04-18] MEDS ORDERED: Sodium Chloride 0.9% 250 ML ONE ×2 (00:28→05:16)
[2017-04-18] MEDS ORDERED: Bumetanide 1 MG/4 ML MDV IVPUSH ONE ×2 (01:00→04:00)
--- NOTE | 2017-04-18 07:26 | PCM.CONS ---
H&P History of Present Illness - General Date of Service: 04/18/17 Admit Problem/Dx: Symptomatic Anemia Source of Information: Old Records, Provider History Limitations: Reports: No Limitations - History of Present Illness Initial Comments - Free Text/Narative: Mrs. Walker is a 86-year-old woman who I was asked to see in consultation by Dr. Janet Villagomez. Her primary care provider is Dr. Santana Barrera. The patient was actually supposed to see me in clinic today regarding possibly scheduling a bone marrow biopsy and EGD and colonoscopy. She is currently following with Dr. Layd Nguyen in regards to her anemia and history of multiple myeloma, which is thought to have worsened recently. The patient also had recent cardiac stenting with drug-eluting stents x 3 is on dual antiplatelet therapy with Plavix and aspirin. She presented to the emergency department as she was feeling generally weak and was found to have a hemoglobin of 6.7. She has been requiring intermittent transfusions due to her anemia. She denies any hematochezia, melena, hematemesis, coffee-ground emesis, abdominal pain or changes in her bowel habits. She does have significant pain from a T12 compression fracture. She does have chronic kidney disease as well as congestive heart failure with a decreased ejection fraction of approximately 40%. I have previously performed a bone marrow biopsy for the patient in June 2016, prior to her recent stenting in November of this year. Patient did have a Hemoccult performed in the emergency department which was positive. She states that she does have a sore throat, it has been present for about a day or 2. She also states she has frequent nosebleeds and bruises quite easily with no history of trauma that she is aware of. The patient has been given 3 units of packed red blood cells while inpatient and is receiving her third unit currently. She has had no diarrhea symptoms or obvious hematochezia or melena since arrival. She is currently hemodynamically stable. Lower Back Pain Score (Numeric/FACES): 10 - Related Data Allergies/Adverse Reactions: Allergies Allergy/AdvReac Type Severity Reaction Status Date / Time aspirin Allergy Swelling Verified 04/02/17 16:01 bacitracin Allergy Cannot Verified 04/02/17 16:01 [From Neosporin Remember ([id number])] bacitracin zinc Allergy Cannot Verified 04/02/17 16:01 [From Neosporin Remember ([id number])] carvedilol Allergy Itching Verified 04/02/17 16:01 neomycin sulfate Allergy Cannot Verified 04/02/17 16:01 [From Neosporin Remember ([id number])] Penicillins Allergy Itching Verified 04/02/17 16:01 polymyxin B Allergy Cannot Verified 04/02/17 16:01 [From Neosporin Remember ([id number])] prednisone Allergy Swollen Verified 04/02/17 16:01 Eyes sertraline HCl [From Zoloft] Allergy Swelling Verified 04/02/17 16:01 Sulfa (Sulfonamide Allergy Cannot Verified 04/02/17 16:01 Antibiotics) Remember Home Medications: Home Meds Glimepiride [Amaryl] 2 mg PO DAILY 03/14/16 [History] LORazepam 0.5 mg PO BEDTIME 03/14/16 [History] Primidone 50 mg PO BEDTIME 03/14/16 [History] Cholecalciferol (Vitamin D3) [Vitamin D] 2,000 mg PO DAILY 11/14/16 [History] Cyanocobalamin (Vitamin B-12) [Vitamin B-12] 1,000 mcg PO DAILY 11/14/16 [ History] LORazepam [Ativan] 0.25 mg PO QAM 11/14/16 [History] Methylphenidate HCl [Methylphenidate ER] 36 mg PO DAILY 11/14/16 [History] Sennosides [Senna] 2 tab PO ASDIRECTED PRN 11/14/16 [History] Ubidecarenone [Co Q-10] 40 mg PO DAILY 11/14/16 [History] Furosemide 20 mg PO DAILY #30 tablet 11/16/16 [Rx] Losartan [Cozaar] 25 mg PO DAILY 04/02/17 [History] Allopurinol [Zyloprim] 100 mg PO DAILY 04/04/17 [History] Aspirin [Low Dose Aspirin EC] 81 mg PO DAILY 04/04/17 [History] B&C/FA/Zinc/Copper Oxide/Vit E [Stress B-Complex Tablet] 1 tab PO DAILY [History] Clopidogrel Bisulfate [Plavix] 75 mg PO DAILY 04/04/17 [History] Hydrocodone/Acetaminophen [Hydrocodon-Acetaminophen 5-325] 2 tab PO QAM [History] Lidocaine 5% [Lidoderm 5%] 1 patch TOP Q24H 04/04/17 [History] Metoprolol Succinate [Toprol XL] 100 mg PO DAILY 04/04/17 [History] SitaGLIPtin [Januvia] 100 mg PO DAILY 04/04/17 [History] Acetaminophen [Tylenol Extra Strength] 500 mg PO Q6HR PRN 04/17/17 [History] Losartan [Cozaar] 25 mg PO BEDTIME 04/17/17 [History] MV-Mn/Lycop/Lut/Herbal [id number] [Phytomulti Tablet] 2 each PO DAILY 04/17/17 [ History] fentaNYL [Duragesic] 12 mcg TRDERM Q72H 04/17/17 [History] Hydrocodone/Acetaminophen [Hydrocodon-Acetaminophen 5-325] 1 tab PO Q6H MDD 6 tabs per day 04/19/17 [History] Past Medical History HEENT History: Reports: Impaired Vision Other HEENT History: multiple implants in mouth Cardiovascular History: Reports: Heart Murmur, High Cholesterol, Hypertension, PTCA, SOB on Exertion, Stents (12/05/16 x 3, drug eluting) Respiratory History: Reports: None Gastrointestinal History: Reports: Cholelithiasis, Chronic Constipation, Other ( See Below) (+ Hemoccult of uncertain etiology) Genitourinary History: Reports: Chronic Renal Insuffiency, Urinary Incontinence (mild) Musculoskeletal History: Reports: Arthritis, Other (See Below) (Compression fracture of T12) Neurological History: Reports: Other (See Below) (Essential tremor) Psychiatric History: Reports: Anxiety Endocrine/Metabolic History: Reports: Diabetes, Type II, Other (See Below) (Hx of parathyroid tumor) Hematologic History: Reports: Anemia, Iron Deficiency Oncologic (Cancer) History: Reports: Breast Other Oncologic History: multiple myeloma Dermatologic History: Reports: Other (See Below) Other Dermatologic History: skin tag, basal cell carcinoma. - Infectious Disease History Infectious Disease History: Reports: Measles - Past Surgical History HEENT Surgical History: Reports: Cataract Surgery Cardiovascular Surgical History: Reports: Coronary Artery Stent (12/05/16 x 3 ( drug eluting)) GI Surgical History: Reports: Cholecystectomy Female Surgical History: Reports: Breast Biopsy Endocrine Surgical History: Reports: Parathyroidectomy Musculoskeletal Surgical History: Reports: Carpal Tunnel, Hip Replacement Dermatological Surgical History: Reports: Other (See Below) (Excision of skin cancer) Social & Family History - Family History Family Medical History: Noncontributory - Tobacco Use Smoking Status *Q: Never Smoker Second Hand Smoke Exposure: No - Caffeine Use Caffeine Use: Reports: None Other Caffeine Use: Diet Coke---at least 1 per day - Recreational Drug Use Recreational Drug Use: No H&P Review of Systems - Review of Systems: Review Of Systems: See Below General: Reports: Weakness, Fatigue HEENT: Reports: Glasses, Other (frequent nose bleeds) Pulmonary: Reports: Shortness of Breath (with exertion ) Cardiovascular: Reports: Dyspnea on Exertion, Lightheadedness. Denies: Chest Pain, Syncope Gastrointestinal: Denies: Abdominal Pain, Black Stool, Bloody Stool, Constipation, Diarrhea, Hematochezia, Melena, Nausea, Vomiting Genitourinary: Reports: No Symptoms, Incontinence Musculoskeletal: Reports: Back Pain Skin: Reports: Bruising Psychiatric: Reports: No Symptoms Neurological: Reports: No Symptoms Hematologic/Lymphatic: Reports: Anemia, Easy Bleeding, Easy Bruising Immunologic: Reports: No Symptoms Exam - Exam Exam: See Below - Vital Signs Vital Signs: Last Vital Signs Temp 97.9 F 04/18/17 05:34 Pulse 85 04/18/17 05:34 Resp 17 04/18/17 05:34 BP 144/88 H 04/18/17 05:34 Pulse Ox 95 04/18/17 05:23 Weight: 180 lb - Exam Quality Assessment: Supplemental Oxygen General: Alert, Oriented, Cooperative, Mild Distress (due to back pain ) HEENT: EOMI, Hearing Intact, Nares Patent. No: Scleral Icterus Neck: Supple, Trachea Midline Lungs: Clear to Auscultation, Normal Respiratory Effort Cardiovascular: Regular Rate, Systolic Murmur Abdomen: Soft. No: Peritoneal Signs, Distention, Guarding, Rigidity, Rebound, Tenderness Rectal (Female) Exam: Deferred (performed in ED, not repeated at this time. ) Back Exam: Vertebral Tenderness (mid back ) Extremities: No: Clubbing, Cyanosis, Calf Tenderness, Edema Skin: Warm, Dry, Intact Neurological: Cranial Nerves Intact, Normal Speech, Sensation Intact. No: Focal Deficit Neuro Extensive - Mental Status: Alert, Oriented x3, Normal Mood/Affect, Normal Cognition, Memory Intact Psychiatric: Alert, Normal Affect, Normal Mood - Patient Data Result Diagrams: 04/20/17 06:36 04/20/17 06:36 Consult PN Assessment/Plan Procedures: Procedures ASSAY NEPHELOMETRY NOT SPEC (11/14/16) ASSAY OF FREE THYROXINE (11/14/16) ASSAY OF IRON (11/14/16) ASSAY OF MAGNESIUM (11/14/16) ASSAY OF NATRIURETIC PEPTIDE (11/14/16) ASSAY OF PROTEIN URINE (11/14/16) ASSAY OF TRANSFERRIN (11/14/16) ASSAY OF TROPONIN QUANT (11/14/16) ASSAY THYROID STIM HORMONE (11/14/16) BLOOD TRANSFUSION SERVICE (04/04/17) BLOOD TYPING SEROLOGIC ABO (04/02/17) BLOOD TYPING SEROLOGIC RH(D) (04/02/17) CHEST X-RAY 1 VIEW FRONTAL (11/14/16) COMPATIBILITY TEST ANTIGLOB (04/04/17) COMPLETE CBC W/AUTO DIFF WBC (11/14/16) COMPREHEN METABOLIC PANEL (11/14/16) CT ANGIOGRAPHY CHEST (11/14/16) ECG MONIT/REPRT UP TO 48 HRS (02/21/16) ECG MONIT/REPRT UP TO 48 HRS (02/21/16) ELECTROCARDIOGRAM TRACING (11/14/16) EMERGENCY DEPT VISIT (11/14/16) EMERGENCY DEPT VISIT (07/18/16) EXTREMITY STUDY (11/14/16) FIBRIN DEGRADATION QUANT (05/02/16) GAIT TRAINING THERAPY (11/14/16) GLUCOSE BLOOD TEST (11/14/16) HYDRATION IV INFUSION INIT (07/18/16) IMMUNFIX E-PHORSIS/URINE/CSF (11/14/16) IMMUNOFIX E-PHORESIS SERUM (11/14/16) METABOLIC PANEL TOTAL CA (11/14/16) OCCULT BLD FECES 1-3 TESTS (11/14/16) OT EVALUATION (11/14/16) PROTEIN E-PHORESIS SERUM (11/14/16) PT EVALUATION (11/14/16) RBC ANTIBODY SCREEN (04/02/17) ROUTINE VENIPUNCTURE (04/04/17) THER/PROPH/DIAG INJ IV PUSH (11/14/16) THER/PROPH/DIAG IV INF ADDON (03/14/16) THER/PROPH/DIAG IV INF INIT (03/14/16) THERAPEUTIC EXERCISES (11/14/16) TTE W/DOPPLER COMPLETE (11/14/16) URINALYSIS AUTO W/SCOPE (11/14/16) URINE CULTURE/COLONY COUNT (11/14/16) US EXAM ABDO BACK WALL COMP (11/14/16) VITAMIN B-12 (11/14/16) (1) Multiple myeloma in relapse SNOMED Code(s): 459342010 Code(s): C90.02 - MULTIPLE MYELOMA IN RELAPSE Current Visit: Yes (2) Guaiac positive stools SNOMED Code(s): 06236269, 727623310 Code(s): R19.5 - OTHER FECAL ABNORMALITIES Current Visit: Yes (3) Compression fracture of body of thoracic vertebra SNOMED Code(s): 823116050 Code(s): M48.54XA - COLLAPSED VERTEBRA, NEC, THORACIC REGION, INIT Current Visit: Yes (4) Nasal bleeding SNOMED Code(s): 55257989, 442922741 Code(s): R04.0 - EPISTAXIS Current Visit: Yes (5) Bruising, spontaneous SNOMED Code(s): 907642200 Code(s): R23.3 - SPONTANEOUS ECCHYMOSES Current Visit: Yes (6) CAD S/P percutaneous coronary angioplasty SNOMED Code(s): 893051359 Code(s): I25.10 - ATHSCL HEART DISEASE OF [place] CORONARY ARTERY W/O ANG PCTRS; Z98.61 - CORONARY ANGIOPLASTY STATUS Current Visit: Yes (7) CHF (congestive heart failure) SNOMED Code(s): 78074080 Code(s): I50.9 - HEART FAILURE, UNSPECIFIED Current Visit: Yes Qualifiers: Congestive heart failure type: unspecified congestive heart failure type Congestive heart failure chronicity: acute Qualified Code(s): I50.9 - Heart failure, unspecified (8) Anemia SNOMED Code(s): 125348499 Code(s): D64.9 - ANEMIA, UNSPECIFIED Current Visit: No Qualifiers: Anemia type: unspecified type Qualified Code(s): D64.9 - Anemia, unspecified Problem List Initiated/Reviewed/Updated: Yes Plan: 86-year-old woman with anemia and history of multiple myeloma as well as Hemoccult-positive stool I discussed with the patient proceeding with bone marrow biopsy, diagnostic EGD and diagnostic colonoscopy. There is no evidence of significant GI bleeding at this time and I suspect her anemia is mostly due to her multiple myeloma, but certainly multifactorial. At this time, she is willing to proceed with further invasive testing. She cannot recall when her last colonoscopy was performed, but she states it is been many years ago. I was not able to identify this in her record. I stated her that I would be happy to perform her procedure, but there was a significant risk of bleeding due to her being on both Plavix and aspirin. We also discussed the other risks of the procedures. I explained to her that the difficulty in [place] is a we do not have platelets available in the event that an emergent platelet transfusion would be required. I discussed with her that I will be contacting her rack carrier, Dr. Vega regarding plans for further testing. I did contact Dr. Vega immediately after seeing Mrs. Walker in consultation. After discussing her current condition, he would recommend that any procedures with the possible risk of bleeding be performed in [place] for accessibility of platelets as well as cardiology in the event that the patient needed to be emergently taken off of her Plavix as she would be at high risk for possible thrombosis of her stents. I did contact Rachael Locke PA-C with the hospitalist team and discussed this after speaking with Dr. Vega. I will be available for any further issues or concerns. Thank you for the opportunity to participate in Mrs. Walker's care. Please do not hesitate contact me with any questions.
[2017-04-18] MEDS ORDERED: fentaNYL 12 MCG/HR Transdermal Patch TRDERM SCH (08:00)
[2017-04-18] MEDS ORDERED: LORazepam 0.5 MG Tab PO SCH (08:00)
--- NOTE | 2017-04-18 08:07 | PCM.PN ---
- General Info Date of Service: 04/18/17 Admission Dx/Problem (Free Text): Symptomatic Anemia Subjective Update: Follow Up Functional Status: Reports: pain controlled, tolerating diet, ambulating, urinating. Denies: new symptoms (sore throat) - Review of Systems General: Reports: Weakness. Denies: Fever, Chills HEENT: Reports: no symptoms Pulmonary: Denies: shortness of breath Cardiovascular: Denies: Chest Pain Gastrointestinal: Denies: Abdominal pain, Nausea, Vomiting Genitourinary: Reports: no symptoms Musculoskeletal: Reports: no symptoms Skin: Denies: cyanosis, pallor, rash Neurological: Reports: Confusion, Difficulty Walking, Weakness, Gait Disturbance. Denies: Dizziness Psychiatric: Denies: depression, mood lability, anxiety, agitation Systems Review Comment:: No overnight issues. She is still receiving blood. She complaints of sore throat. She feels a bit better. - Patient Data Vitals - most recent: Last Vital Signs Temp 37.2 C 04/18/17 07:59 Pulse 85 04/18/17 07:59 Resp 20 04/18/17 07:59 BP 134/49 L 04/18/17 07:59 Pulse Ox 96 04/18/17 07:59 Weight - most recent: 81.647 kg I&O - last 24 hours: Intake & Output 04/17/17 04/18/17 04/18/17 22:59 06:59 14:59 Intake Total 0 882 Balance 0 882 Med Orders - Current: Current Medications Acetaminophen (Tylenol) 650 mg PO Q4H PRN PRN Reason: Pain (Mild 1-3)/fever Hydrocodone Bitart/Acetaminophen (Riverside 325-5 Mg) 2 tab PO QAM CARMELA Hydrocodone Bitart/Acetaminophen ([place]ide 325-5 Mg) 1 tab PO Q4H PRN PRN Reason: Pain (moderate 4-6) Last Admin: 04/17/17 23:02 Dose: 1 tab Albuterol (Proventil Neb Soln) 2.5 mg NEB Q2H PRN PRN Reason: Shortness Of Breath/wheezing Allopurinol (Zyloprim) 100 mg PO DAILY CARMELA Aspirin (Halfprin) 81 mg PO DAILY CARM[facility]A Benzocaine/Menthol (Cepacol Sore Throat) 1 lozenge MUCMEM 5XDAY PRN PRN Reason: Sore Throat Bisacodyl (Dulcolax) 5 mg PO DAILY PRN PRN Reason: Constipation Cholecalciferol (Vitamin D3) 2,000 units PO DAILY [facility] Clopidogrel Bisulfate (Plavix) 75 mg PO DAILY [facility] Cyanocobalamin (Vitamin B12) 1,000 mcg PO DAILY [facility] Docusate Sodium (Colace) 100 mg PO BID PRN PRN Reason: Constipation Fentanyl (Duragesic) 12 mcg TRDERM Q72H [facility] Furosemide (Lasix) 20 mg PO DAILY [facility] Glimepiride (Amaryl) 2 mg PO DAILY [facility] Hydralazine HCl (Apresoline) 10 mg IVPUSH Q4H PRN PRN Reason: Hypertension Promethazine HCl 12.5 mg/ (Sodium Chloride) 50.5 mls @ 100 mls/hr IV Q6H PRN PRN Reason: Nausea/Vomiting Lidocaine (Lidoderm 5%) 700 mg TOP Q24H [facility] Lorazepam (Ativan) 0.25 mg PO QAM [facility] Lorazepam (Ativan) 0.5 mg PO BEDTIME [facility] Last Admin: 04/17/17 22:55 Dose: 0.5 mg Lorazepam (Ativan) 0.25 mg IV Q6H PRN PRN Reason: Anxiety Losartan Potassium (Cozaar) 25 mg PO BEDTIME [facility] Last Admin: 04/17/17 22:59 Dose: 25 mg Magnesium Sulfate (Pharmacy To Dose - Magnesium Replacement) 1 dose .XX ASDIRECTED [facility] Metoprolol Succinate (Toprol Xl) 100 mg PO DAILY [facility] Metoprolol Tartrate (Lopressor) 5 mg IVPUSH Q4H PRN PRN Reason: Tachycardia Miscellaneous Information (Remove Patch) 1 ea TRDERM Q72H [facility] Miscellaneous Information (Remove Patch) 0 ea TRDERM Q24H [facility] Ondansetron HCl (Zofran) 4 mg IV Q6H PRN PRN Reason: Nausea/Vomiting B&C/Fa/Zinc/Copper Oxide/Vit E [Stress B-Complex Tablet] 0 each PO DAILY [facility] Mv-Mn/Lycop/Lut/Herbal [id number] [ Phytomulti Tablet] 2 Each 0 each PO DAILY [facility] Methylphenidate Hcl [Methylphenidate Er] 36 Mg 0 each PO DAILY [facility] Ubidecarenone [Co Q- (10] 40 Mg) 0 each PO DAILY [facility] Polyethylene Glycol (Miralax) 17 gm PO DAILY PRN PRN Reason: Constipation Potassium Chloride (Pharmacy To Dose - Potassium Replacement) 1 dose .XX ASDIRECTED [facility] Primidone (Mysoline) 50 mg PO BEDTIME [facility] Last Admin: 04/17/17 22:56 Dose: 50 mg Senna (Senna) 8.6 mg PO ASDIRECTED PRN PRN Reason: Constipation Senna/Docusate Sodium (Senna Plus) 1 tab PO BID PRN PRN Reason: Constipation Sitagliptin Phosphate (Januvia) 100 mg PO DAILY [facility] Sodium Chloride (Saline Flush) 10 ml FLUSH ASDIRECTED PRN PRN Reason: Keep Vein Open Last Admin: 04/17/17 16:15 Dose: 10 ml Temazepam (Restoril) 7.5 mg PO BEDTIME PRN PRN Reason: Sleep Last Admin: 04/17/17 22:57 Dose: 7.5 mg Discontinued Medications Acetaminophen (Tylenol) 650 mg PO NOW ONE Stop: 04/17/17 17:04 Last Admin: 04/17/17 17:07 Dose: 650 mg Bumetanide (Bumex) 0.5 mg IVPUSH ONETIME ONE Stop: 04/18/17 01:01 Last Admin: 04/18/17 01:05 Dose: 0.5 mg Bumetanide (Bumex) 0.5 mg IVPUSH ONETIME ONE Stop: 04/18/17 04:01 Last Admin: 04/18/17 05:19 Dose: 0.5 mg Furosemide (Lasix) 20 mg IVPUSH NOW ONE Stop: 04/17/17 16:30 Last Admin: 04/17/17 16:49 Dose: 20 mg Furosemide (Lasix) 20 mg IVPUSH ONETIME ONE Stop: 04/17/17 18:19 Last Admin: 04/18/17 00:33 Dose: Not Given Sodium Chloride (Normal Saline) 500 mls @ 250 mls/hr IV .BOLUS ONE Stop: 04/17/17 18:26 Last Admin: 04/17/17 16:49 Dose: 250 mls/hr Sodium Chloride (Normal Saline) Confirm Administered Dose 250 mls @ as directed .ROUTE .STK-MED ONE Stop: 04/17/17 21:01 Last Admin: 04/17/17 23:00 Dose: 250 ml Sodium Chloride (Normal Saline) Confirm Administered Dose 250 mls @ as directed .ROUTE .STK-MED ONE Stop: 04/18/17 00:29 Last Admin: 04/18/17 01:10 Dose: 250 ml Sodium Chloride (Normal Saline) Confirm Administered Dose 250 mls @ as directed .ROUTE .STK-MED ONE Stop: 04/18/17 05:17 Last Admin: 04/18/17 06:17 Dose: 250 ml Lidocaine (Lidoderm 5%) 700 mg TOP Q24H CARM[facility]A Last Admin: 04/18/17 07:33 Dose: Not Given Non-Formulary Medication (Acetaminophen) 500 mg PO Q6HR PRN PRN Reason: Pain Non-Formulary Medication (Losartan) 25 mg PO DAILY CARMELA - Exam General: alert, cooperative, no acute distress HEENT: Pupils equal, Pupils reactive, EOMI, Mucous membr. moist/pink Neck: supple, trachea midline, no JVD, no thyromegaly Lungs: Normal respiratory effort, Decreased breath sounds Cardiovascular: Regular Rate, Regular Rhythm, Murmurs Abdomen: bowel sounds present, soft, no tenderness, no distension (Female) Exam: Deferred Back Exam: Normal Inspection, Decreased Range of Motion Extremities: no edema, normal pulses, no tenderness/swelling, no clubbing, no cyanosis, no calf tenderness Peripheral Pulses: 2+: Dorsalis Pedis (L), Dorsalis Pedis (R) Skin: warm, dry, intact Neurological: no new focal deficit Psy/Mental Status: alert, normal affect, normal mood. No: depressed, agitated, suicidal ideation, homicidal ideation - Problem List Review Problem List Initiated/Reviewed/Updated: Yes - My Orders Last 24 Hours: My Active Orders 04/17/17 19:52 Sennosides [Senna] 8.6 mg PO ASDIRECTED PRN 04/17/17 19:54 Height and Weight [RC] 04 Oxygen Therapy [RC] PRN Up With Assistance [RC] BID Up ad Natalie [RC] BID VTE/DVT Education [RC] DAILY Vital Signs [RC] Q4HR Acetaminophen [Tylenol] 650 mg PO Q4H PRN Acetaminophen/HYDROcodone [Riverside 325-5 MG] 1 tab PO Q4H PRN Albuterol [Proventil Neb Soln] 2.5 mg NEB Q2H PRN Bisacodyl [Dulcolax] 5 mg PO DAILY PRN Docusate Sodium [Colace] 100 mg PO BID PRN Docusate Sodium/Sennosides [Senna Plus] 1 tab PO BID PRN LORazepam [Ativan] 0.25 mg IV Q6H PRN Metoprolol Tartrate [Lopressor] 5 mg IVPUSH Q4H PRN Ondansetron [Zofran] 4 mg IV Q6H PRN Polyethylene Glycol 3350 [MiraLAX] 17 gm PO DAILY PRN Promethazine [Phenergan] 12.5 mg Sodium Chloride 0.9% [Normal Saline] 50 ml IV Q6H Temazepam [Restoril] 7.5 mg PO BEDTIME PRN hydrALAZINE [Apresoline] 10 mg IVPUSH Q4H PRN 04/17/17 19:55 Antiembolic Devices [RC] DAILY Cardiac Monitoring [RC] CONTINUOUS Intake and Output [RC] 04,16 Sequential Compression Device [OM.PC] Per Unit Routine 04/17/17 19:56 RT Aerosol Therapy [RC] ASDIRECTED Consult to Case Management [CONS] Routine Consult to Physician [CONS] Routine Consult to Sql Bi Developer [CONS] Routine Consult to Spiritual Care [CONS] Routine OT Evaluation and Treatment [CONS] Routine PT Evaluation and Treatment [CONS] Routine 04/17/17 19:57 Notify Provider Consults [RC] ASDIRECTED 04/17/17 20:00 Magnesium Rep Pharmacy to Dose [Pharmacy to Dose - Magnesium Replacement] 1 dose .XX ASDIRECTED Potassium Rep Pharmacy to Dose [Pharmacy to Dose - Potassium Replacement] 1 dose .XX ASDIRECTED 04/17/17 21:00 LORazepam [Ativan] 0.5 mg PO BEDTIME Losartan [Cozaar] 25 mg PO BEDTIME Primidone [Mysoline] 50 mg PO BEDTIME 04/18/17 02:06 Resuscitation Status Routine 04/18/17 05:11 BASIC METABOLIC PANEL,BMP [CHEM] AM CBC WITH AUTO DIFF [HEME] AM MAGNESIUM [CHEM] AM 04/18/17 06:36 B-TYPE NATRIURETIC PEPTIDE,BNP [CHEM] Routine 04/18/17 06:57 Hemoccult [OCCULT BLOOD DIAGNOSTIC] [OP] Stat 04/18/17 07:30 Lidocaine 5% [Lidoderm 5%] 700 mg TOP Q24H 04/18/17 08:00 Acetaminophen/HYDROcodone [Riverside 325-5 MG] 2 tab PO QAM LORazepam [Ativan] 0.25 mg PO QAM Remove Patch 1 ea TRDERM Q72H fentaNYL [Duragesic] 12 mcg TRDERM Q72H 04/18/17 09:00 Allopurinol [Zyloprim] 100 mg PO DAILY Aspirin [Halfprin] 81 mg PO DAILY Cholecalciferol (Vitamin D3) [Vitamin D3] 2,000 units PO DAILY Clopidogrel [Plavix] 75 mg PO DAILY Cyanocobalamin (Vitamin B12) [Vitamin B12] 1,000 mcg PO DAILY Furosemide [Lasix] 20 mg PO DAILY Glimepiride [Amaryl] 2 mg PO DAILY Metoprolol Succinate [Toprol XL] 100 mg PO DAILY Patient's Own Medication [Ptom] 0 each PO DAILY Patient's Own Medication [Ptom] 0 each PO DAILY Patient's Own Medication [Ptom] 0 each PO DAILY Patient's Own Medication [Ptom] 0 each PO DAILY SitaGLIPtin [Januvia] 100 mg PO DAILY 04/18/17 19:30 Remove Patch 0 ea TRDERM Q24H 04/18/17 Breakfast ADA Diabetic [[place] [employer] Diet] [DIET] 04/19/17 05:11 BASIC METABOLIC PANEL,BMP [CHEM] AM CBC WITH AUTO DIFF [HEME] AM MAGNESIUM [CHEM] AM 04/20/17 05:11 BASIC METABOLIC PANEL,BMP [CHEM] AM CBC WITH AUTO DIFF [HEME] AM MAGNESIUM [CHEM] AM 04/21/17 05:11 BASIC METABOLIC PANEL,BMP [CHEM] AM CBC WITH AUTO DIFF [HEME] AM MAGNESIUM [CHEM] AM 04/22/17 05:11 BASIC METABOLIC PANEL,BMP [CHEM] AM CBC WITH AUTO DIFF [HEME] AM MAGNESIUM [CHEM] AM - Plan Plan:: Assessment/Plan: Acute: Symptomatic Anemia - 2/2 evolving MM +/- GI Bleed - ? Hem-occult pos per ED - Hgb 6.7 on admission - Recently had transfusion of 2 units PRBC 2 weeks ago - S/p 3 units of PRBC transfusion, Hgb is now at 8.7 - No volumed overload - Consulted Dr. Fernandez for further eval: she spoke to patient's nut picker. Dr. 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 Payne after discharge - She supposed to have a BM biopsy tomorrow with Dr. Fernandez Generalized Weakness - 2/2 Above - Continue PT/OT T12 Compression - Spoke to Dr. Payne. 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 Daughter also went and spoke personally to Dr. Payne but her prognosis. Dr. Payne told daughter, patient would get chemo if she is able to get herself to the clinic (i.e. walking on her own w /o help). Family is looking at NH placement at this point. Poor Prognosis given her co-morbid conditions and advanced age. LOS anticipate > 96 hrs for SNF/NH placement.
[2017-04-18] MEDS: Benzocaine/Cetylpyridinium/Menthol Lozenge MUCMEM PRN (08:46)
[2017-04-18] MEDS: Lidocaine 5% 700 MG Patch TOP SCH (08:47)
[2017-04-18] MEDS: Allopurinol 100 MG Tab PO SCH (08:47)
[2017-04-18] MEDS: Furosemide 20 MG Tab PO SCH (08:47)
[2017-04-18] MEDS: Cholecalciferol (Vitamin D3) 1,000 Unit Tab PO SCH (08:47)
[2017-04-18] MEDS: Glimepiride 2 MG Tab PO SCH (08:48)
[2017-04-18] MEDS: Metoprolol Succinate 50 MG Tab.ER PO SCH (08:48)
[2017-04-18] MEDS: Cyanocobalamin (Vitamin B12) 1,000 MCG Tab PO SCH (08:48)
[2017-04-18] MEDS: Clopidogrel 75 MG Tab PO SCH (08:48)
[2017-04-18] MEDS: Acetaminophen/HYDROcodone 325-5 MG Tab PO SCH (08:49)
[2017-04-18] MEDS: Aspirin 81 MG Tab.EC PO SCH (08:52)
[2017-04-18] MEDS ORDERED: Non-Formulary Medication 1 Each (Losartan 25 MG) PO SCH (09:00)
[2017-04-18] MEDS ORDERED: UBIDECARENONE PO SCH (09:00)
[2017-04-18] MEDS ORDERED: ZINC PO SCH (09:00)
[2017-04-18] MEDS ORDERED: VIT E PO SCH (09:00)
[2017-04-18] MEDS ORDERED: METHYLPHENIDATE HCL 36 MG PO SCH (09:00)
[2017-04-18] MEDS ORDERED: [UNRECOGNIZED DRUG - MIXTURE] PO SCH (09:00)
[2017-04-18] MEDS ORDERED: [UNRECOGNIZED DRUG - OTHER] PO SCH (09:00)
[2017-04-18] MEDS ORDERED: Magnesium Sulfate/Water 2 GM in Premix Bag 1 BAG IV ONE (12:45)
--- NOTE | 2017-04-18 13:52 | PCM.SN ---
- Free Text/Narrative Note: Discussion with Dr. Fernandez this morning: Dr. Fernandez called, stating she had seen and talked with patient and her family this morning. She had called Dr. Rodriguez, patient's [employer] Conservation Laborer to speak with him regarding her cardiac surgical risk. Based on her high risk for bleeding, risk for stent thrombosis if plavix stopped, poor EF and platelet availability in [place] he would recommend any surgical procedures be done in [place], Dr. Fernandez concurs and recommends any surgical procedures be preformed in [place]. I relayed this information to Dr. Villagomez this morning.
[2017-04-18] MEDS: Acetaminophen/HYDROcodone 325-5 MG Tab PO PRN ×3 (14:46→23:13)
[2017-04-18] MEDS: Bisacodyl 5 MG Tab PO PRN (14:46)
[2017-04-18] MEDS: Acetaminophen 325 MG Tab PO PRN (18:31)
[2017-04-18] MEDS: Primidone 50 MG Tab PO SCH (20:03)
[2017-04-18] MEDS: Losartan 25 MG Tab PO SCH (20:03)
[2017-04-18] MEDS: LORazepam 0.5 MG Tab PO SCH (20:03)
[2017-04-19] MEDS: Acetaminophen/HYDROcodone 325-5 MG Tab PO PRN ×2 (02:44→21:44)
[2017-04-19] MEDS: Lidocaine 5% 700 MG Patch TOP SCH (06:32)
[2017-04-19] MEDS ORDERED: Mirtazapine 15 MG Tab PO ONE (07:30)
--- NOTE | 2017-04-19 08:19 | CONS ---
CONSULTING PHYSICIAN: Brett Wood MD DATE OF CONSULTATION: 04/19/2017 This is a 60-minute inpatient clinical event. IDENTIFICATION: The patient is an 86-year-old female who is admitted to the inpatient medical unit at [facility] secondary to complications from her myeloma. She is seen for psychiatric consult. CHIEF COMPLAINT: "My hip was bothering me really bad and then my back. I have blood cancer." HISTORY OF PRESENT ILLNESS: The patient is an 86-year-old female who reports that she had been living at her duplex until earlier this week when she "slipped off the bed" 2 days in a row. She was brought to the emergency room for evaluation and admitted to the inpatient medical unit at [facility] on 04/17/2017. The patient is denying that she is depressed, but she is endorsing crying episodes, and she states "I am anxious because I think I am going to have to go to a fci." She states also "I am awful tired" because she has not been able to sleep, and she does note that she has been worrying a lot. She has variable sleep patterns in general, but she says the last few days have been not that good and nursing staff is concurring stating that the patient has been up pretty much all the night staring at the wall and then buzzing the nursing staff because they feel that she is feeling lonely and fearful. The patient denies that she is suicidal or homicidal. She denies any psychotic, delusional, or paranoid symptoms. MEDICATIONS: Medications at the time of presentation; Ativan 0.25 mg q.a.m. and 0.5 mg at bedtime. ALLERGIES: No known drug allergies. PAST MEDICAL HISTORY: 1. Multiple myeloma. 2. Iron deficiency anemia. 3. Rule out GI bleed. REVIEW OF SYSTEMS: 1. Musculoskeletal. 2. Blood. 3. Possible GI. Otherwise, all other major organ systems are negative at this point in time for acute difficulties or complications. FAMILY PSYCHIATRIC AND CD HISTORY: The patient denies. PAST PSYCHIATRIC AND CD HISTORY: The patient states this is essentially negative. Denies any previous psychiatric hospitalizations or chemical dependency treatments or any previous psychiatric medication history. SOCIAL HISTORY: The patient was born and raised in [place] and then moved to [place], [place], when she was a sophomore in high school. She was . was a robb. He in 2003. She had 3 children from that union. 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 MENTAL STATUS EXAM: The patient is an 86-year-old soft-spoken white female in no apparent distress. Speech is of increased latency response, shortened duration of utterance. The patient has poor eye contact and is staring at the floor, the wall for the majority of the interview. The patient is cognitively oriented x3. Psychomotor activity is within normal limits. There are no abnormal motor movements or tics observed. Gait and station are not observed. This patient is lying in the bed for the interview. Mood is anxious. Affect consistent with stated mood, cooperative but restricted overall. There is no behavioral or stated evidence of acute suicidal or homicidal ideation. No acute psychotic, delusional, or paranoid symptoms. Thought processes are significant for some racing thoughts and ruminations. Judgment and insight appear unimpaired at this point in time. Motivation for help appears fair. VITAL SIGNS: 114/54, 75.2, 99 degrees. IMPRESSION: Elba I: 1. Major depressive disorder, F32.2. 2. Anxiety disorder, not otherwise specified, F41.9. Elba II: None. Elba III: 1. Multiple myeloma. 2. Anemia, iron deficiency type. 3. Rule out GI bleed. 4. Complications from multiple myeloma. Elba IV: Severe. Elba V: 55. PLAN: 1. Begin Remeron 15 mg at bedtime to help reduce anxiety and improve sleep patterns and improve mood as well as to possibly stimulate appetite, as the patient is reporting poor appetite. 2. Increase the patient's Ativan from 0.25 mg q.a.m. and 0.5 mg at bedtime to 0.5 mg t.i.d. for anxiety reduction. 3. Other medications as dosed and prescribed by the patient's primary medical treatment team. 4. Pastoral guidance. 5. I recommend the patient follow up with outpatient psychiatry when she is discharged back to community to assess her overall function and efficacy of her newly initiated and adjusted psychiatric medication regimen. 6. We will continue follow up with the patient on a regular and as-needed basis while she remains on the inpatient medical unit. 7. We will follow up with the patient sooner if there are any complications in the interim. 8. Crisis plan is in place. BONITA /[id number]
[2017-04-19] MEDS: Acetaminophen/HYDROcodone 325-5 MG Tab PO SCH (09:14)
[2017-04-19] MEDS: Allopurinol 100 MG Tab PO SCH (09:15)
[2017-04-19] MEDS: Furosemide 20 MG Tab PO SCH (09:15)
[2017-04-19] MEDS: Aspirin 81 MG Tab.EC PO SCH (09:16)
[2017-04-19] MEDS: LORazepam 0.5 MG Tab PO SCH ×4 (09:16→21:42)
[2017-04-19] MEDS: Metoprolol Succinate 50 MG Tab.ER PO SCH (09:16)
[2017-04-19] MEDS: Clopidogrel 75 MG Tab PO SCH (09:17)
[2017-04-19] MEDS: Glimepiride 2 MG Tab PO SCH (09:17)
[2017-04-19] MEDS: Cholecalciferol (Vitamin D3) 1,000 Unit Tab PO SCH (09:17)
[2017-04-19] MEDS: Cyanocobalamin (Vitamin B12) 1,000 MCG Tab PO SCH (09:17)
[2017-04-19] MEDS: Benzocaine/Cetylpyridinium/Menthol Lozenge MUCMEM PRN (09:21)
[2017-04-19] MEDS ORDERED: fentaNYL 50 MCG/HR Transdermal Patch TRDERM ONE (11:12)
[2017-04-19] MEDS ORDERED: fentaNYL 12 MCG/HR Transdermal Patch TRDERM SCH (11:15)
--- NOTE | 2017-04-19 11:22 | PCM.PN ---
- General Info Date of Service: 04/19/17 Admission Dx/Problem (Free Text): Symptomatic Anemia Subjective Update: Follow Up Functional Status: Reports: tolerating diet, urinating. Denies: pain controlled , new symptoms Pain Score: 10 - Review of Systems General: Denies: Fever, Weakness, Fatigue, Malaise HEENT: Reports: sore throat, other (dry mouth) Pulmonary: Reports: no symptoms Cardiovascular: Reports: No Symptoms Gastrointestinal: Denies: Abdominal pain, Nausea, Vomiting Genitourinary: Reports: no symptoms Musculoskeletal: Reports: back pain Skin: Denies: cyanosis, pruritis, rash Neurological: Reports: Difficulty Walking, Weakness, Gait Disturbance. Denies: Confusion, Dizziness Psychiatric: Denies: no symptoms, anxiety, agitation, cravings Systems Review Comment:: No overnight issues. Her pain is not controlled. She still complaints of sore throat. Hgb is stable at 8.7. - Patient Data Vitals - most recent: Last Vital Signs Temp 37.9 C 04/19/17 08:46 Pulse 96 04/19/17 09:16 Resp 20 04/19/17 08:46 BP 146/61 H 04/19/17 09:16 Pulse Ox 99 04/19/17 08:46 Weight - most recent: 77.927 kg I&O - last 24 hours: Intake & Output 04/18/17 04/19/17 04/19/17 22:59 06:59 14:59 Intake Total 685 525 150 Balance 685 525 150 Lab Results last 24 hrs: Laboratory Results - last 24 hr 04/18/17 04/19/17 Range/Units 10:37 04:54 WBC 5.98 (3.98-10.04) K/mm3 RBC 2.97 L (3.98-5.22) M/mm3 Hgb 8.7 L (11.2-15.7) gm/L Hct 27.4 L (34.1-44.9) % MCV 92.3 (79.4-94.8) fl MCH 29.3 (25.6-32.2) pg MCHC 31.8 L (32.2-35.5) g/dl RDW Std Deviation 60.4 H (36.4-46.3) fL Plt Count 230 (182-369) K/mm3 MPV 8.5 L (9.4-12.3) fl Neut % (Auto) 60.8 (34.0-71.1) % Lymph % (Auto) 25.9 (19.3-51.7) % [place]ay % (Auto) 9.5 (4.7-12.5) % Eos % (Auto) 1.8 (0.7-5.8) Baso % (Auto) 0.5 (0.1-1.2) % Neut # (Auto) 3.63 (1.56-6.13) K/mm3 Lymph # (Auto) 1.55 (1.18-3.74) K/mm3 Quay # (Auto) 0.57 H (0.24-0.36) K/mm3 Eos # (Auto) 0.11 (0.04-0.36) K/mm3 Baso # (Auto) 0.03 (0.01-0.08) K/mm3 B-Natriuretic Peptide 1591 H (0-100) pg/mL Med Orders - Current: Current Medications Acetaminophen (Tylenol) 650 mg PO Q4H PRN PRN Reason: Pain (Mild 1-3)/fever Last Admin: 04/18/17 18:31 Dose: 325 mg Hydrocodone Bitart/Acetaminophen ([place] 325-5 Mg) 2 tab PO QAM [facility] Last Admin: 04/19/17 09:14 Dose: 2 tab Hydrocodone Bitart/Acetaminophen ([place] 325-5 Mg) 1 tab PO Q4H PRN PRN Reason: Pain (moderate 4-6) Last Admin: 04/19/17 02:44 Dose: 1 tab Albuterol (Proventil Neb Soln) 2.5 mg NEB Q2H PRN PRN Reason: Shortness Of Breath/wheezing Allopurinol (Zyloprim) 100 mg PO DAILY [facility] Last Admin: 04/19/17 09:15 Dose: 100 mg Aspirin (Halfprin) 81 mg PO DAILY [facility] Last Admin: 04/19/17 09:16 Dose: 81 mg Benzocaine/Menthol (Cepacol Sore Throat) 1 lozenge MUCMEM 5XDAY PRN PRN Reason: Sore Throat Last Admin: 04/19/17 09:21 Dose: 1 lozenge Bisacodyl (Dulcolax) 5 mg PO DAILY PRN PRN Reason: Constipation Last Admin: 04/18/17 14:46 Dose: 5 mg Cholecalciferol (Vitamin D3) 2,000 units PO DAILY [facility] Last Admin: 04/19/17 09:17 Dose: 2,000 units Clopidogrel Bisulfate (Plavix) 75 mg PO DAILY [facility] Last Admin: 04/19/17 09:17 Dose: 75 mg Cyanocobalamin (Vitamin B12) 1,000 mcg PO DAILY [facility] Last Admin: 04/19/17 09:17 Dose: 1,000 mcg Docusate Sodium (Colace) 100 mg PO BID PRN PRN Reason: Constipation Fentanyl (Duragesic) 6 mcg TRDERM Q72H ONE Stop: 04/19/17 11:13 Fentanyl (Duragesic) 18 mcg TRDERM Q72H [facility] Furosemide (Lasix) 20 mg PO DAILY [facility] Last Admin: 04/19/17 09:15 Dose: 20 mg Glimepiride (Amaryl) 2 mg PO DAILY [facility] Last Admin: 04/19/17 09:17 Dose: 2 mg Hydralazine HCl (Apresoline) 10 mg IVPUSH Q4H PRN PRN Reason: Hypertension Promethazine HCl 12.5 mg/ (Sodium Chloride) 50.5 mls @ 100 mls/hr IV Q6H PRN PRN Reason: Nausea/Vomiting Lidocaine (Lidoderm 5%) 700 mg TOP Q24H [facility] Last Admin: 04/19/17 06:32 Dose: 700 mg Lorazepam (Ativan) 0.5 mg PO TID [facility] Last Admin: 04/19/17 09:16 Dose: 0.5 mg Losartan Potassium (Cozaar) 25 mg PO BEDTIME [facility] Last Admin: 04/18/17 20:03 Dose: 25 mg Magnesium Sulfate (Pharmacy To Dose - Magnesium Replacement) 1 dose .XX ASDIRECTED [facility] Metoprolol Succinate (Toprol Xl) 100 mg PO DAILY [facility] Last Admin: 04/19/17 09:16 Dose: 100 mg Metoprolol Tartrate (Lopressor) 5 mg IVPUSH Q4H PRN PRN Reason: Tachycardia Mirtazapine (Remeron) 15 mg PO BEDTIME [facility] Miscellaneous Information (Remove Patch) 1 ea TRDERM Q72H [facility] Last Admin: 04/18/17 08:52 Dose: 1 ea Miscellaneous Information (Remove Patch) 0 ea TRDERM Q24H [facility] Last Admin: 04/18/17 19:37 Dose: 1 ea Ondansetron HCl (Zofran) 4 mg IV Q6H PRN PRN Reason: Nausea/Vomiting Polyethylene Glycol (Miralax) 17 gm PO DAILY PRN PRN Reason: Constipation Potassium Chloride (Pharmacy To Dose - Potassium Replacement) 1 dose .XX ASDIRECTED [facility] Primidone (Mysoline) 50 mg PO BEDTIME [facility] Last Admin: 04/18/17 20:03 Dose: 50 mg Senna (Senna) 8.6 mg PO ASDIRECTED PRN PRN Reason: Constipation Senna/Docusate Sodium (Senna Plus) 1 tab PO BID PRN PRN Reason: Constipation Sitagliptin Phosphate (Januvia) 100 mg PO DAILY [facility] Last Admin: 04/19/17 09:15 Dose: 100 mg Sodium Chloride (Saline Flush) 10 ml FLUSH ASDIRECTED PRN PRN Reason: Keep Vein Open Last Admin: 04/17/17 16:15 Dose: 10 ml Temazepam (Restoril) 7.5 mg PO BEDTIME PRN PRN Reason: Sleep Last Admin: 04/17/17 22:57 Dose: 7.5 mg Discontinued Medications Acetaminophen (Tylenol) 650 mg PO NOW ONE Stop: 04/17/17 17:04 Last Admin: 04/17/17 17:07 Dose: 650 mg Bumetanide (Bumex) 0.5 mg IVPUSH ONETIME ONE Stop: 04/18/17 01:01 Last Admin: 04/18/17 01:05 Dose: 0.5 mg Bumetanide (Bumex) 0.5 mg IVPUSH ONETIME ONE Stop: 04/18/17 04:01 Last Admin: 04/18/17 05:19 Dose: 0.5 mg Fentanyl (Duragesic) 12 mcg TRDERM Q72H [facility] Last Admin: 04/18/17 08:47 Dose: 12 mcg Fentanyl (Duragesic) 12 mcg TRDERM Q72H [facility] Fentanyl (Duragesic) 25 mcg TRDERM Q72H [facility] Fentanyl (Duragesic) 18 mcg TRDERM Q72H [facility] Furosemide (Lasix) 20 mg IVPUSH NOW ONE Stop: 04/17/17 16:30 Last Admin: 04/17/17 16:49 Dose: 20 mg Furosemide (Lasix) 20 mg IVPUSH ONETIME ONE Stop: 04/17/17 18:19 Last Admin: 04/18/17 00:33 Dose: Not Given Sodium Chloride (Normal Saline) 500 mls @ 250 mls/hr IV .BOLUS ONE Stop: 04/17/17 18:26 Last Admin: 04/17/17 16:49 Dose: 250 mls/hr Sodium Chloride (Normal Saline) Confirm Administered Dose 250 mls @ as directed .ROUTE .STK-MED ONE Stop: 04/17/17 21:01 Last Admin: 04/17/17 23:00 Dose: 250 ml Sodium Chloride (Normal Saline) Confirm Administered Dose 250 mls @ as directed .ROUTE .STK-MED ONE Stop: 04/18/17 00:29 Last Admin: 04/18/17 01:10 Dose: 250 ml Sodium Chloride (Normal Saline) Confirm Administered Dose 250 mls @ as directed .ROUTE .STK-MED ONE Stop: 04/18/17 05:17 Last Admin: 04/18/17 06:17 Dose: 250 ml Magnesium Sulfate 2 gm/ Premix 50 mls @ 25 mls/hr IV ONETIME ONE Stop: 04/18/17 14:44 Last Admin: 04/18/17 14:11 Dose: 25 mls/hr Lidocaine (Lidoderm 5%) 700 mg TOP Q24H [facility] Last Admin: 04/18/17 07:33 Dose: Not Given Lorazepam (Ativan) 0.25 mg PO QAM [facility] Last Admin: 04/18/17 08:49 Dose: 0.25 mg Lorazepam (Ativan) 0.5 mg PO BEDTIME [facility] Last Admin: 04/18/17 20:03 Dose: 0.5 mg Lorazepam (Ativan) 0.25 mg IV Q6H PRN PRN Reason: Anxiety Mirtazapine (Remeron) 15 mg PO ONETIME ONE Stop: 04/19/17 07:31 Last Admin: 04/19/17 06:32 Dose: 15 mg Non-Formulary Medication (Acetaminophen) 500 mg PO Q6HR PRN PRN Reason: Pain Non-Formulary Medication (Losartan) 25 mg PO DAILY [facility] B&C/Fa/Zinc/Copper Oxide/Vit E [Stress B-Complex Tablet] 0 each PO DAILY [facility] Last Admin: 04/18/17 08:52 Dose: Not Given Mv-Mn/Lycop/Lut/Herbal [id number] [ Phytomulti Tablet] 2 Each 0 each PO DAILY [facility] Last Admin: 04/18/17 08:52 Dose: Not Given Methylphenidate Hcl [Methylphenidate Er] 36 Mg 0 each PO DAILY [facility] Last Admin: 04/18/17 08:52 Dose: Not Given Ubidecarenone [Co Q- (10] 40 Mg) 0 each PO DAILY [facility] Last Admin: 04/18/17 08:52 Dose: Not Given - Exam General: alert, cooperative, no acute distress HEENT: Pupils equal, Pupils reactive, EOMI, Mucous membr. moist/pink, Other ( Throat: No erythema, edema or exudate. Mouth and Tongue: dry ) Neck: supple, trachea midline, no JVD, no thyromegaly Lungs: Normal respiratory effort, Decreased breath sounds Cardiovascular: Regular Rate Abdomen: bowel sounds present, soft, no tenderness, no distension (Female) Exam: Deferred Back Exam: Normal Inspection, Decreased Range of Motion, Muscle Spasm, Paraspinal Tenderness, Vertebral Tenderness Extremities: no edema, normal pulses, no tenderness/swelling, no clubbing, no cyanosis, no calf tenderness Peripheral Pulses: 2+: Dorsalis Pedis (L), Dorsalis Pedis (R) Skin: warm, dry, intact Neurological: no new focal deficit Psy/Mental Status: alert, normal affect, normal mood - Problem List Review Problem List Initiated/Reviewed/Updated: Yes - My Orders Last 24 Hours: My Active Orders 04/18/17 17:04 Consult to Physician [CONS] Routine 04/18/17 19:30 Remove Patch 0 ea TRDERM Q24H 04/19/17 04:54 BASIC METABOLIC PANEL [REF] Routine MAGNESIUM [REF] Routine 04/19/17 11:12 fentaNYL [Duragesic] 6 mcg TRDERM Q72H ONE 04/20/17 05:11 BASIC METABOLIC PANEL,BMP [CHEM] AM CBC WITH AUTO DIFF [HEME] AM MAGNESIUM [CHEM] AM 04/20/17 08:00 fentaNYL [Duragesic] 18 mcg TRDERM Q72H 04/21/17 05:11 BASIC METABOLIC PANEL,BMP [CHEM] AM CBC WITH AUTO DIFF [HEME] AM MAGNESIUM [CHEM] AM 04/22/17 05:11 BASIC METABOLIC PANEL,BMP [CHEM] AM CBC WITH AUTO DIFF [HEME] AM MAGNESIUM [CHEM] AM - Plan Plan:: Assessment/Plan: Acute: Symptomatic Anemia - 2/2 evolving MM +/- GI Bleed - ? Hem-occult pos per ED - Hgb 6.7 on admission - Recently had transfusion of 2 units PRBC 2 weeks ago - S/p 3 units of PRBC transfusion, Hgb is still 8.7 - No volumed overload - Consulted Dr. Fernandez for further eval: she spoke to patient's clinical trial coordinator. Dr. 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 Payne after discharge - She supposed to have a BM biopsy tomorrow with Dr. Fernandez Generalized Weakness - 2/2 Above - Continue PT/OT T12 Compression with Pain - Spoke to Dr. Payne. 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 Wood consult Chronic: HTN HLD VERDUZCO OA DM2 CARLA HF With Reduced EF 40% with RWMA 11/15/2016 Anxiety Plan: She remains clinically stable Routine AM Labs Continue PT/OT Fall Precaution SW/CM for d/c planning Recommend SNF/NH placement Code status: DNR/DNI LOS > 96 hrs for possible SNF/NH placement
[2017-04-19] MEDS: fentaNYL 25 MCG/HR Transdermal Patch TRDERM SCH (13:16)
[2017-04-19] MEDS: Primidone 50 MG Tab PO SCH (21:43)
[2017-04-19] MEDS: Mirtazapine 15 MG Tab PO SCH (21:43)
[2017-04-19] MEDS: Losartan 25 MG Tab PO SCH (21:43)
[2017-04-20] MEDS: Acetaminophen/HYDROcodone 325-5 MG Tab PO PRN ×3 (01:45→17:32)
[2017-04-20] MEDS: Lidocaine 5% 700 MG Patch TOP SCH ×2 (05:29→09:00)
[2017-04-20] MEDS: Bisacodyl 5 MG Tab PO PRN (05:29)
[2017-04-20] MEDS ORDERED: fentaNYL 25 MCG/HR Transdermal Patch TRDERM SCH (08:00)
--- NOTE | 2017-04-20 08:00 | PCM.PN ---
- General Info Date of Service: 04/20/17 Admission Dx/Problem (Free Text): Symptomatic Anemia Subjective Update: Follow Up Functional Status: Reports: pain controlled, tolerating diet, ambulating, urinating. Denies: new symptoms - Review of Systems General: Reports: Weakness. Denies: Fever, Chills HEENT: Reports: no symptoms Pulmonary: Denies: shortness of breath Cardiovascular: Denies: Chest Pain Gastrointestinal: Denies: Abdominal pain, Nausea, Vomiting Genitourinary: Reports: no symptoms Musculoskeletal: Reports: no symptoms Skin: Reports: no symptoms Neurological: Reports: Weakness, Gait Disturbance. Denies: Confusion, Difficulty Walking Psychiatric: Denies: confusion, anxiety, agitation Systems Review Comment:: She did not sleep god last night. Her pain is better. She is somewhat lethargic. She has no complaints of sore throat. No overnight issues reported. Her Hgb remains stable. - Patient Data Vitals - most recent: Last Vital Signs Temp 37.4 C 04/19/17 19:23 Pulse 93 04/19/17 19:23 Resp 20 04/19/17 19:23 BP 109/70 04/19/17 21:43 Pulse Ox 93 L 04/19/17 19:23 Weight - most recent: 77.7 kg I&O - last 24 hours: Intake & Output 04/19/17 04/20/17 04/20/17 22:59 06:59 14:59 Intake Total 780 1120 Balance 780 1120 Lab Results last 24 hrs: Laboratory Results - last 24 hr 04/19/17 04/19/17 04/20/17 Range/Units 04:54 04:54 06:36 WBC 6.04 (3.98-10.04) K/mm3 RBC 2.93 L (3.98-5.22) M/mm3 Hgb 8.5 L (11.2-15.7) gm/L Hct 27.3 L (34.1-44.9) % MCV 93.2 (79.4-94.8) fl MCH 29.0 (25.6-32.2) pg MCHC 31.1 L (32.2-35.5) g/dl RDW Std Deviation 59.6 H (36.4-46.3) fL Plt Count 223 (182-369) K/mm3 MPV 8.4 L (9.4-12.3) fl Neut % (Auto) 63.1 (34.0-71.1) % Lymph % (Auto) 19.9 (19.3-51.7) % Stevens % (Auto) 9.9 (4.7-12.5) % Eos % (Auto) 1.7 (0.7-5.8) Baso % (Auto) 0.3 (0.1-1.2) % Neut # (Auto) 3.81 (1.56-6.13) K/mm3 Lymph # (Auto) 1.20 (1.18-3.74) K/mm3 Stevens # (Auto) 0.60 H (0.24-0.36) K/mm3 Eos # (Auto) 0.10 (0.04-0.36) K/mm3 Baso # (Auto) 0.02 (0.01-0.08) K/mm3 Sodium 132 L (135-145) mEq/L Potassium 4.1 (3.5-5.1) mEq/L Chloride 108 (101-111) mEq/L Carbon Dioxide 18 L (21-31) mEq/L Anion Gap (5-15) BUN 46 H (7-25) mg/dL Creatinine 1.48 H (0.60-1.10) mg/dL Est Cr Clr Drug Dosing mL/min Estimated GFR Not Reportable Estimated GFR (MDRD) (>60) mL/min BUN/Creatinine Ratio (14-18) Glucose 82 (75-99) mg/dL Calcium 9.8 (8.6-10.3) mg/dL Magnesium 2.1 (1.6-2.6) mg/dL 04/20/17 Range/Units 06:36 WBC (3.98-10.04) K/mm3 RBC (3.98-5.22) M/mm3 Hgb (11.2-15.7) gm/L Hct (34.1-44.9) % MCV (79.4-94.8) fl MCH (25.6-32.2) pg MCHC (32.2-35.5) g/dl RDW Std Deviation (36.4-46.3) fL Plt Count (182-369) K/mm3 MPV (9.4-12.3) fl Neut % (Auto) (34.0-71.1) % Lymph % (Auto) (19.3-51.7) % Stevens % (Auto) (4.7-12.5) % Eos % (Auto) (0.7-5.8) Baso % (Auto) (0.1-1.2) % Neut # (Auto) (1.56-6.13) K/mm3 Lymph # (Auto) (1.18-3.74) K/mm3 Stevens # (Auto) (0.24-0.36) K/mm3 Eos # (Auto) (0.04-0.36) K/mm3 Baso # (Auto) (0.01-0.08) K/mm3 Sodium 137 (135-145) mEq/L Potassium 4.5 (3.5-5.1) mEq/L Chloride 107 (101-111) mEq/L Carbon Dioxide 21 (21-31) mEq/L Anion Gap 13.5 (5-15) BUN TNP (7-25) mg/dL Creatinine 1.8 H (0.60-1.10) mg/dL Est Cr Clr Drug Dosing 20.09 mL/min Estimated GFR Estimated GFR (MDRD) 27 (>60) mL/min BUN/Creatinine Ratio 28.9 H (14-18) Glucose TNP (75-99) mg/dL Calcium TNP (8.6-10.3) mg/dL Magnesium 1.9 (1.6-2.6) mg/dL Med Orders - Current: Current Medications Acetaminophen (Tylenol) 650 mg PO Q4H PRN PRN Reason: Pain (Mild 1-3)/fever Last Admin: 04/18/17 18:31 Dose: 325 mg Hydrocodone Bitart/Acetaminophen (Roy 325-5 Mg) 2 tab PO QAM [facility] Last Admin: 04/19/17 09:14 Dose: 2 tab Hydrocodone Bitart/Acetaminophen (Roy 325-5 Mg) 1 tab PO Q4H PRN PRN Reason: Pain (moderate 4-6) Last Admin: 04/20/17 05:28 Dose: 1 tab Albuterol (Proventil Neb Soln) 2.5 mg NEB Q2H PRN PRN Reason: Shortness Of Breath/wheezing Allopurinol (Zyloprim) 100 mg PO DAILY [facility] Last Admin: 04/19/17 09:15 Dose: 100 mg Aspirin (Halfprin) 81 mg PO DAILY [facility] Last Admin: 04/19/17 09:16 Dose: 81 mg Benzocaine/Menthol (Cepacol Sore Throat) 1 lozenge MUCMEM 5XDAY PRN PRN Reason: Sore Throat Last Admin: 04/19/17 09:21 Dose: 1 lozenge Bisacodyl (Dulcolax) 5 mg PO DAILY PRN PRN Reason: Constipation Last Admin: 04/20/17 05:29 Dose: 5 mg Cholecalciferol (Vitamin D3) 2,000 units PO DAILY [facility] Last Admin: 04/19/17 09:17 Dose: 2,000 units Clopidogrel Bisulfate (Plavix) 75 mg PO DAILY [facility] Last Admin: 04/19/17 09:17 Dose: 75 mg Cyanocobalamin (Vitamin B12) 1,000 mcg PO DAILY [facility] Last Admin: 04/19/17 09:17 Dose: 1,000 mcg Docusate Sodium (Colace) 100 mg PO BID PRN PRN Reason: Constipation Fentanyl (Duragesic) 25 mcg TRDERM Q72H [facility] Last Admin: 04/19/17 13:16 Dose: 25 mcg Furosemide (Lasix) 20 mg PO DAILY [facility] Last Admin: 04/19/17 09:15 Dose: 20 mg Glimepiride (Amaryl) 2 mg PO DAILY [facility] Last Admin: 04/19/17 09:17 Dose: 2 mg Hydralazine HCl (Apresoline) 10 mg IVPUSH Q4H PRN PRN Reason: Hypertension Promethazine HCl 12.5 mg/ (Sodium Chloride) 50.5 mls @ 100 mls/hr IV Q6H PRN PRN Reason: Nausea/Vomiting Lidocaine (Lidoderm 5%) 700 mg TOP Q24H [facility] Last Admin: 04/20/17 05:29 Dose: 700 mg Lorazepam (Ativan) 0.5 mg PO TID [facility] Last Admin: 04/19/17 21:42 Dose: 0.5 mg Losartan Potassium (Cozaar) 25 mg PO BEDTIME [facility] Last Admin: 04/19/17 21:43 Dose: 25 mg Magnesium Sulfate (Pharmacy To Dose - Magnesium Replacement) 1 dose .XX ASDIRECTED [facility] Metoprolol Succinate (Toprol Xl) 100 mg PO DAILY [facility] Last Admin: 04/19/17 09:16 Dose: 100 mg Metoprolol Tartrate (Lopressor) 5 mg IVPUSH Q4H PRN PRN Reason: Tachycardia Mirtazapine (Remeron) 15 mg PO BEDTIME [facility] Last Admin: 04/19/17 21:43 Dose: 15 mg Miscellaneous Information (Remove Patch) 0 ea TRDERM Q24H [facility] Last Admin: 04/19/17 18:48 Dose: Not Given Miscellaneous Information (Remove Patch) 0 ea TRDERM Q72H [facility] Ondansetron HCl (Zofran) 4 mg IV Q6H PRN PRN Reason: Nausea/Vomiting Polyethylene Glycol (Miralax) 17 gm PO DAILY PRN PRN Reason: Constipation Potassium Chloride (Pharmacy To Dose - Potassium Replacement) 1 dose .XX ASDIRECTED [facility] Primidone (Mysoline) 50 mg PO BEDTIME [facility] Last Admin: 04/19/17 21:43 Dose: 50 mg Senna (Senna) 8.6 mg PO ASDIRECTED PRN PRN Reason: Constipation Senna/Docusate Sodium (Senna Plus) 1 tab PO BID PRN PRN Reason: Constipation Sitagliptin Phosphate (Januvia) 100 mg PO DAILY [facility] Last Admin: 04/19/17 09:15 Dose: 100 mg Sodium Chloride (Saline Flush) 10 ml FLUSH ASDIRECTED PRN PRN Reason: Keep Vein Open Last Admin: 04/17/17 16:15 Dose: 10 ml Temazepam (Restoril) 7.5 mg PO BEDTIME PRN PRN Reason: Sleep Last Admin: 04/17/17 22:57 Dose: 7.5 mg Discontinued Medications Acetaminophen (Tylenol) 650 mg PO NOW ONE Stop: 04/17/17 17:04 Last Admin: 04/17/17 17:07 Dose: 650 mg Bumetanide (Bumex) 0.5 mg IVPUSH ONETIME ONE Stop: 04/18/17 01:01 Last Admin: 04/18/17 01:05 Dose: 0.5 mg Bumetanide (Bumex) 0.5 mg IVPUSH ONETIME ONE Stop: 04/18/17 04:01 Last Admin: 04/18/17 05:19 Dose: 0.5 mg Fentanyl (Duragesic) 12 mcg TRDERM Q72H [facility] Last Admin: 04/18/17 08:47 Dose: 12 mcg Fentanyl (Duragesic) 12 mcg TRDERM Q72H [facility] Fentanyl (Duragesic) 25 mcg TRDERM Q72H [facility] Fentanyl (Duragesic) 18 mcg TRDERM Q72H [facility] Furosemide (Lasix) 20 mg IVPUSH NOW ONE Stop: 04/17/17 16:30 Last Admin: 04/17/17 16:49 Dose: 20 mg Furosemide (Lasix) 20 mg IVPUSH ONETIME ONE Stop: 04/17/17 18:19 Last Admin: 04/18/17 00:33 Dose: Not Given Sodium Chloride (Normal Saline) 500 mls @ 250 mls/hr IV .BOLUS ONE Stop: 04/17/17 18:26 Last Admin: 04/17/17 16:49 Dose: 250 mls/hr Sodium Chloride (Normal Saline) Confirm Administered Dose 250 mls @ as directed .ROUTE .STK-MED ONE Stop: 04/17/17 21:01 Last Admin: 04/17/17 23:00 Dose: 250 ml Sodium Chloride (Normal Saline) Confirm Administered Dose 250 mls @ as directed .ROUTE .STK-MED ONE Stop: 04/18/17 00:29 Last Admin: 04/18/17 01:10 Dose: 250 ml Sodium Chloride (Normal Saline) Confirm Administered Dose 250 mls @ as directed .ROUTE .STK-MED ONE Stop: 04/18/17 05:17 Last Admin: 04/18/17 06:17 Dose: 250 ml Magnesium Sulfate 2 gm/ Premix 50 mls @ 25 mls/hr IV ONETIME ONE Stop: 04/18/17 14:44 Last Admin: 04/18/17 14:11 Dose: 25 mls/hr Lidocaine (Lidoderm 5%) 700 mg TOP Q24H [facility] Last Admin: 04/18/17 07:33 Dose: Not Given Lorazepam (Ativan) 0.25 mg PO QAM [facility] Last Admin: 04/18/17 08:49 Dose: 0.25 mg Lorazepam (Ativan) 0.5 mg PO BEDTIME [facility] Last Admin: 04/18/17 20:03 Dose: 0.5 mg Lorazepam (Ativan) 0.25 mg IV Q6H PRN PRN Reason: Anxiety Mirtazapine (Remeron) 15 mg PO ONETIME ONE Stop: 04/19/17 07:31 Last Admin: 04/19/17 06:32 Dose: 15 mg Miscellaneous Information (Remove Patch) 1 ea TRDERM Q72H [facility] Last Admin: 04/18/17 08:52 Dose: 1 ea Non-Formulary Medication (Acetaminophen) 500 mg PO Q6HR PRN PRN Reason: Pain Non-Formulary Medication (Losartan) 25 mg PO DAILY [facility] B&C/Fa/Zinc/Copper Oxide/Vit E [Stress B-Complex Tablet] 0 each PO DAILY [facility] Last Admin: 04/18/17 08:52 Dose: Not Given Mv-Mn/Lycop/Lut/Herbal [id number] [ Phytomulti Tablet] 2 Each 0 each PO DAILY [facility] Last Admin: 04/18/17 08:52 Dose: Not Given Methylphenidate Hcl [Methylphenidate Er] 36 Mg 0 each PO DAILY [facility] Last Admin: 04/18/17 08:52 Dose: Not Given Ubidecarenone [Co Q- (10] 40 Mg) 0 each PO DAILY [facility] Last Admin: 04/18/17 08:52 Dose: Not Given - Exam General: alert, cooperative, no acute distress, lethargic HEENT: Pupils equal, Pupils reactive, EOMI, Mucous membr. moist/pink Neck: supple, trachea midline, no JVD Lungs: Normal respiratory effort, Decreased breath sounds Cardiovascular: Regular Rate, Regular Rhythm, Murmurs Abdomen: bowel sounds present, soft, no tenderness, no distension (Female) Exam: Deferred Back Exam: Normal Inspection, Decreased Range of Motion, Muscle Spasm Extremities: no edema, normal pulses, no tenderness/swelling, no clubbing, no cyanosis, no calf tenderness Peripheral Pulses: 2+: Dorsalis Pedis (L), Dorsalis Pedis (R) Skin: warm, dry, intact Neurological: no new focal deficit Psy/Mental Status: alert, normal mood, depressed. 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 Payne after discharge - She supposed to have a BM biopsy tomorrow with Dr. Fernandez Generalized Weakness, Unchanged - 2/2 Above - Continue PT/OT T12 Compression with Pain, Improved - Spoke to Dr. Payne. it seems this may have been present a month ago when she had he skeletal survey - Patient also has hx/o Osteoporosis per daughter - Pain is not controlled, spoke to family and cautioned them about narcotic side effects with increased dose - Will increased fentanyl to 25 mcg Q72hrs from 12.5, d/c lidocaine patch and continue oral breakthrough pain Anxiety and Depression 2/2 Medical Condition - Geriatric Depression Scale -Dr. Wood consulted: recommended Remeron 15 mg po QHS and Ativan 0.5 mg po TID, pastoral guidance and follow up if needed Resolved: S/p Symptomatic Anemia - 2/2 evolving MM +/- GI Bleed - ? Hem-occult pos per ED - Hgb 6.7 on admission - Recently had transfusion of 2 units PRBC 2 weeks ago - S/p 3 units of PRBC transfusion, Hgb is still 8.7 - No volumed overload - Consulted Dr. 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 Dr. 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
[2017-04-20] MEDS: Metoprolol Succinate 50 MG Tab.ER PO SCH (08:58)
[2017-04-20] MEDS: Acetaminophen/HYDROcodone 325-5 MG Tab PO SCH (08:58)
[2017-04-20] MEDS: Cholecalciferol (Vitamin D3) 1,000 Unit Tab PO SCH (08:58)
[2017-04-20] MEDS: Cyanocobalamin (Vitamin B12) 1,000 MCG Tab PO SCH (08:59)
[2017-04-20] MEDS: LORazepam 0.5 MG Tab PO SCH ×3 (08:59→20:12)
[2017-04-20] MEDS: Allopurinol 100 MG Tab PO SCH (08:59)
[2017-04-20] MEDS: Glimepiride 2 MG Tab PO SCH (08:59)
[2017-04-20] MEDS: Clopidogrel 75 MG Tab PO SCH (08:59)
[2017-04-20] MEDS: Furosemide 20 MG Tab PO SCH (09:00)
[2017-04-20] MEDS: Aspirin 81 MG Tab.EC PO SCH (09:00)
[2017-04-20] MEDS ORDERED: Bisacodyl 10 MG Supp RECTAL PRN (17:52)
[2017-04-20] MEDS: Losartan 25 MG Tab PO SCH (20:13)
[2017-04-20] MEDS: Mirtazapine 15 MG Tab PO SCH (20:25)
[2017-04-20] MEDS: Primidone 50 MG Tab PO SCH (20:25)
[2017-04-20] MEDS ORDERED: Acetaminophen 650 MG Supp RECTAL PRN ×2 (22:39→22:50)
[2017-04-21] MEDS: Acetaminophen/HYDROcodone 325-5 MG Tab PO PRN ×3 (00:22→20:43)
[2017-04-21] MEDS: Lidocaine 5% 700 MG Patch TOP SCH (06:50)
[2017-04-21] MEDS: Acetaminophen/HYDROcodone 325-5 MG Tab PO SCH (09:02)
[2017-04-21] MEDS: Furosemide 20 MG Tab PO SCH (10:22)
[2017-04-21] MEDS: Glimepiride 2 MG Tab PO SCH (10:22)
[2017-04-21] MEDS: LORazepam 0.5 MG Tab PO SCH ×3 (10:22→20:44)
[2017-04-21] MEDS: Aspirin 81 MG Tab.EC PO SCH (10:22)
[2017-04-21] MEDS: Clopidogrel 75 MG Tab PO SCH (10:22)
[2017-04-21] MEDS: Cyanocobalamin (Vitamin B12) 1,000 MCG Tab PO SCH (10:23)
[2017-04-21] MEDS: Metoprolol Succinate 50 MG Tab.ER PO SCH (10:23)
[2017-04-21] MEDS: Cholecalciferol (Vitamin D3) 1,000 Unit Tab PO SCH (10:24)
[2017-04-21] MEDS: Allopurinol 100 MG Tab PO SCH (10:24)
--- NOTE | 2017-04-21 10:35 | PCM.PN ---
- General Info Date of Service: 04/21/17 Functional Status: Reports: pain controlled, tolerating diet, ambulating, urinating - Review of Systems General: Reports: No Symptoms HEENT: Reports: no symptoms Pulmonary: Reports: no symptoms Cardiovascular: Reports: No Symptoms Gastrointestinal: Reports: No symptoms Genitourinary: Reports: no symptoms Musculoskeletal: Reports: no symptoms Skin: Reports: no symptoms Neurological: Reports: Weakness, Gait Disturbance Psychiatric: Reports: no symptoms - Patient Data Vitals - most recent: Last Vital Signs Temp 36.5 C 04/21/17 03:52 Pulse 74 04/21/17 03:52 Resp 22 H 04/21/17 03:52 BP 122/43 L 04/21/17 10:23 Pulse Ox 92 L 04/21/17 03:52 Weight - most recent: 78.335 kg I&O - last 24 hours: Intake & Output 04/20/17 04/21/17 04/21/17 22:59 06:59 14:59 Intake Total 300 300 Balance 300 300 Lab Results last 24 hrs: Laboratory Results - last 24 hr 04/21/17 04/21/17 Range/Units 04:51 04:51 WBC 5.89 (3.98-10.04) K/mm3 RBC 2.78 L (3.98-5.22) M/mm3 Hgb 8.2 L (11.2-15.7) gm/L Hct 26.5 L (34.1-44.9) % MCV 95.3 H (79.4-94.8) fl MCH 29.5 (25.6-32.2) pg MCHC 30.9 L (32.2-35.5) g/dl RDW Std Deviation 59.7 H (36.4-46.3) fL Plt Count 201 (182-369) K/mm3 MPV 8.8 L (9.4-12.3) fl Neut % (Auto) 60.3 (34.0-71.1) % Lymph % (Auto) 23.1 (19.3-51.7) % [place] % (Auto) 12.1 (4.7-12.5) % Eos % (Auto) 0.8 (0.7-5.8) Baso % (Auto) 0.3 (0.1-1.2) % Neut # (Auto) 3.55 (1.56-6.13) K/mm3 Lymph # (Auto) 1.36 (1.18-3.74) K/mm3 [place] # (Auto) 0.71 H (0.24-0.36) K/mm3 Eos # (Auto) 0.05 (0.04-0.36) K/mm3 Baso # (Auto) 0.02 (0.01-0.08) K/mm3 Manual Slide Review Abnormal smear Sodium TNP Potassium TNP Chloride TNP Carbon Dioxide TNP Anion Gap TNP BUN TNP Creatinine 2.3 H (0.55-1.02) mg/dL Est Cr Clr Drug Dosing 15.72 mL/min Estimated GFR (MDRD) 20 (>60) mL/min BUN/Creatinine Ratio TNP Glucose TNP Calcium TNP Magnesium TNP Med Orders - Current: Current Medications Acetaminophen (Tylenol) 650 mg PO Q4H PRN PRN Reason: Pain (Mild 1-3)/fever Last Admin: 04/18/17 18:31 Dose: 325 mg Acetaminophen (Tylenol) 650 mg RECTAL Q4H PRN PRN Reason: Fever Last Admin: 04/20/17 22:57 Dose: 650 mg Hydrocodone Bitart/Acetaminophen ([place] 325-5 Mg) 2 tab PO QAM [facility] Last Admin: 04/21/17 09:02 Dose: Not Given Hydrocodone Bitart/Acetaminophen ([place] 325-5 Mg) 1 tab PO Q4H PRN PRN Reason: Pain (moderate 4-6) Last Admin: 04/21/17 00:22 Dose: 1 tab Albuterol (Proventil Neb Soln) 2.5 mg NEB Q2H PRN PRN Reason: Shortness Of Breath/wheezing Allopurinol (Zyloprim) 100 mg PO DAILY [facility] Last Admin: 04/21/17 10:24 Dose: 100 mg Aspirin (Halfprin) 81 mg PO DAILY [facility] Last Admin: 04/21/17 10:22 Dose: 81 mg Benzocaine/Menthol (Cepacol Sore Throat) 1 lozenge MUCMEM 5XDAY PRN PRN Reason: Sore Throat Last Admin: 04/19/17 09:21 Dose: 1 lozenge Bisacodyl (Dulcolax) 5 mg PO DAILY PRN PRN Reason: Constipation Last Admin: 04/20/17 05:29 Dose: 5 mg Bisacodyl (Dulcolax) 10 mg RECTAL DAILY PRN PRN Reason: Constipation Last Admin: 04/20/17 18:37 Dose: 10 mg Cholecalciferol (Vitamin D3) 2,000 units PO DAILY [facility] Last Admin: 04/21/17 10:24 Dose: Not Given Clopidogrel Bisulfate (Plavix) 75 mg PO DAILY [facility] Last Admin: 04/21/17 10:22 Dose: 75 mg Cyanocobalamin (Vitamin B12) 1,000 mcg PO DAILY [facility] Last Admin: 04/21/17 10:23 Dose: Not Given Docusate Sodium (Colace) 100 mg PO BID PRN PRN Reason: Constipation Fentanyl (Duragesic) 25 mcg TRDERM Q72H [facility] Last Admin: 04/19/17 13:16 Dose: 25 mcg Furosemide (Lasix) 20 mg PO DAILY [facility] Last Admin: 04/21/17 10:22 Dose: 20 mg Glimepiride (Amaryl) 2 mg PO DAILY [facility] Last Admin: 04/21/17 10:22 Dose: Not Given Hydralazine HCl (Apresoline) 10 mg IVPUSH Q4H PRN PRN Reason: Hypertension Promethazine HCl 12.5 mg/ (Sodium Chloride) 50.5 mls @ 100 mls/hr IV Q6H PRN PRN Reason: Nausea/Vomiting Lidocaine (Lidoderm 5%) 700 mg TOP Q24H [facility] Last Admin: 04/21/17 06:50 Dose: 700 mg Lorazepam (Ativan) 0.5 mg PO TID [facility] Last Admin: 04/21/17 10:22 Dose: Not Given Losartan Potassium (Cozaar) 25 mg PO BEDTIME [facility] Last Admin: 04/20/17 20:13 Dose: 25 mg Magnesium Sulfate (Pharmacy To Dose - Magnesium Replacement) 1 dose .XX ASDIRECTED [facility] Metoprolol Succinate (Toprol Xl) 100 mg PO DAILY [facility] Last Admin: 04/21/17 10:23 Dose: Not Given Metoprolol Tartrate (Lopressor) 5 mg IVPUSH Q4H PRN PRN Reason: Tachycardia Mirtazapine (Remeron) 15 mg PO BEDTIME [facility] Last Admin: 04/20/17 20:25 Dose: 15 mg Miscellaneous Information (Remove Patch) 0 ea TRDERM Q24H [facility] Last Admin: 04/20/17 18:40 Dose: 1 ea Miscellaneous Information (Remove Patch) 0 ea TRDERM Q72H [facility] Ondansetron HCl (Zofran) 4 mg IV Q6H PRN PRN Reason: Nausea/Vomiting Polyethylene Glycol (Miralax) 17 gm PO DAILY PRN PRN Reason: Constipation Potassium Chloride (Pharmacy To Dose - Potassium Replacement) 1 dose .XX ASDIRECTED [facility] Primidone (Mysoline) 50 mg PO BEDTIME [facility] Last Admin: 04/20/17 20:25 Dose: 50 mg Senna (Senna) 8.6 mg PO ASDIRECTED PRN PRN Reason: Constipation Senna/Docusate Sodium (Senna Plus) 1 tab PO BID PRN PRN Reason: Constipation Sitagliptin Phosphate (Januvia) 100 mg PO DAILY [facility] Last Admin: 04/21/17 10:22 Dose: Not Given Temazepam (Restoril) 7.5 mg PO BEDTIME PRN PRN Reason: Sleep Last Admin: 04/17/17 22:57 Dose: 7.5 mg Discontinued Medications Acetaminophen (Tylenol) 650 mg PO NOW ONE Stop: 04/17/17 17:04 Last Admin: 04/17/17 17:07 Dose: 650 mg Acetaminophen (Tylenol) 600 mg RECTAL Q4H PRN PRN Reason: Fever Bumetanide (Bumex) 0.5 mg IVPUSH ONETIME ONE Stop: 04/18/17 01:01 Last Admin: 04/18/17 01:05 Dose: 0.5 mg Bumetanide (Bumex) 0.5 mg IVPUSH ONETIME ONE Stop: 04/18/17 04:01 Last Admin: 04/18/17 05:19 Dose: 0.5 mg Fentanyl (Duragesic) 12 mcg TRDERM Q72H [facility] Last Admin: 04/18/17 08:47 Dose: 12 mcg Fentanyl (Duragesic) 12 mcg TRDERM Q72H [facility] Fentanyl (Duragesic) 25 mcg TRDERM Q72H [facility] Fentanyl (Duragesic) 18 mcg TRDERM Q72H [facility] Furosemide (Lasix) 20 mg IVPUSH NOW ONE Stop: 04/17/17 16:30 Last Admin: 04/17/17 16:49 Dose: 20 mg Furosemide (Lasix) 20 mg IVPUSH ONETIME ONE Stop: 04/17/17 18:19 Last Admin: 04/18/17 00:33 Dose: Not Given Sodium Chloride (Normal Saline) 500 mls @ 250 mls/hr IV .BOLUS ONE Stop: 04/17/17 18:26 Last Admin: 04/17/17 16:49 Dose: 250 mls/hr Sodium Chloride (Normal Saline) Confirm Administered Dose 250 mls @ as directed .ROUTE .STK-MED ONE Stop: 04/17/17 21:01 Last Admin: 04/17/17 23:00 Dose: 250 ml Sodium Chloride (Normal Saline) Confirm Administered Dose 250 mls @ as directed .ROUTE .STK-MED ONE Stop: 04/18/17 00:29 Last Admin: 04/18/17 01:10 Dose: 250 ml Sodium Chloride (Normal Saline) Confirm Administered Dose 250 mls @ as directed .ROUTE .STK-MED ONE Stop: 04/18/17 05:17 Last Admin: 04/18/17 06:17 Dose: 250 ml Magnesium Sulfate 2 gm/ Premix 50 mls @ 25 mls/hr IV ONETIME ONE Stop: 04/18/17 14:44 Last Admin: 04/18/17 14:11 Dose: 25 mls/hr Lidocaine (Lidoderm 5%) 700 mg TOP Q24H [facility] Last Admin: 04/18/17 07:33 Dose: Not Given Lorazepam (Ativan) 0.25 mg PO QAM [facility] Last Admin: 04/18/17 08:49 Dose: 0.25 mg Lorazepam (Ativan) 0.5 mg PO BEDTIME [facility] Last Admin: 04/18/17 20:03 Dose: 0.5 mg Lorazepam (Ativan) 0.25 mg IV Q6H PRN PRN Reason: Anxiety Mirtazapine (Remeron) 15 mg PO ONETIME ONE Stop: 04/19/17 07:31 Last Admin: 04/19/17 06:32 Dose: 15 mg Miscellaneous Information (Remove Patch) 1 ea TRDERM Q72H [facility] Last Admin: 04/18/17 08:52 Dose: 1 ea Non-Formulary Medication (Acetaminophen) 500 mg PO Q6HR PRN PRN Reason: Pain Non-Formulary Medication (Losartan) 25 mg PO DAILY [facility] B&C/Fa/Zinc/Copper Oxide/Vit E [Stress B-Complex Tablet] 0 each PO DAILY [facility] Last Admin: 04/18/17 08:52 Dose: Not Given Mv-Mn/Lycop/Lut/Herbal [id number] [ Phytomulti Tablet] 2 Each 0 each PO DAILY [facility] Last Admin: 04/18/17 08:52 Dose: Not Given Methylphenidate Hcl [Methylphenidate Er] 36 Mg 0 each PO DAILY [facility] Last Admin: 04/18/17 08:52 Dose: Not Given Ubidecarenone [Co Q- (10] 40 Mg) 0 each PO DAILY [facility] Last Admin: 04/18/17 08:52 Dose: Not Given Sodium Chloride (Saline Flush) 10 ml FLUSH ASDIRECTED PRN PRN Reason: Keep Vein Open Last Admin: 04/17/17 16:15 Dose: 10 ml - Exam Quality Assessment: DVT prophylaxis General: alert, oriented, no acute distress HEENT: Pupils equal, Pupils reactive, EOMI Neck: supple, trachea midline Lungs: Normal respiratory effort Cardiovascular: Regular Rate Abdomen: bowel sounds present, soft, no tenderness, no distension (Female) Exam: Deferred Back Exam: Normal Inspection Extremities: normal pulses Skin: warm Neurological: no new focal deficit Psy/Mental Status: alert - Problem List Review Problem List Initiated/Reviewed/Updated: Yes - Plan Plan:: Assessment/Plan: 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 Payne after discharge - She supposed to have a BM biopsy tomorrow with Dr. Fernandez Generalized Weakness, Unchanged - 2/2 Above - Continue PT/OT T12 Compression with Pain, Improved - Spoke to Dr. Payne. it seems this may have been present a month ago when she had he skeletal survey - Patient also has hx/o Osteoporosis per daughter - Pain is not controlled, spoke to family and cautioned them about narcotic side effects with increased dose - Will increased fentanyl to 25 mcg Q72hrs from 12.5, d/c lidocaine patch and continue oral breakthrough pain Anxiety and Adjustment disorder with depressed mood (2/2 Medical Condition) - Geriatric Depression Scale -Dr. Wood consulted: recommended Remeron 15 mg po QHS and Ativan 0.5 mg po TID, pastoral guidance and follow up if needed Resolved: S/p Symptomatic Anemia - 2/2 evolving MM +/- GI Bleed - ? Hem-occult pos per ED - Hgb 6.7 on admission - Recently had transfusion of 2 units PRBC 2 weeks ago - S/p 3 units of PRBC transfusion, Hgb is still 8.7 - No volumed overload - Consulted Dr. 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 Dr. 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
[2017-04-21] MEDS ORDERED: cefTRIAXone 2 GM in Sodium Chloride 0.9% 100 ML IV SCH (12:30)
[2017-04-21] MEDS: Acetaminophen 325 MG Tab PO PRN (14:13)
[2017-04-21] MEDS: Primidone 50 MG Tab PO SCH (20:43)
[2017-04-21] MEDS: Mirtazapine 15 MG Tab PO SCH (20:44)
[2017-04-21] MEDS: Losartan 25 MG Tab PO SCH (20:44)
[2017-04-22] MEDS: Acetaminophen/HYDROcodone 325-5 MG Tab PO PRN ×2 (01:31→17:06)
[2017-04-22] MEDS: Lidocaine 5% 700 MG Patch TOP SCH (06:50)
[2017-04-22] MEDS ORDERED: fentaNYL 25 MCG/HR Transdermal Patch TRDERM SCH (08:00)
[2017-04-22] MEDS ORDERED: fentaNYL 12 MCG/HR Transdermal Patch TRDERM SCH (08:00)
[2017-04-22] MEDS: Aspirin 81 MG Tab.EC PO SCH (08:49)
[2017-04-22] MEDS: Clopidogrel 75 MG Tab PO SCH (08:49)
[2017-04-22] MEDS: Glimepiride 2 MG Tab PO SCH (08:49)
[2017-04-22] MEDS: Cyanocobalamin (Vitamin B12) 1,000 MCG Tab PO SCH (08:49)
[2017-04-22] MEDS: Cholecalciferol (Vitamin D3) 1,000 Unit Tab PO SCH (08:49)
[2017-04-22] MEDS: Furosemide 20 MG Tab PO SCH (08:49)
[2017-04-22] MEDS: Allopurinol 100 MG Tab PO SCH (08:49)
[2017-04-22] MEDS: Acetaminophen/HYDROcodone 325-5 MG Tab PO SCH (08:50)
[2017-04-22] MEDS: LORazepam 0.5 MG Tab PO SCH ×4 (08:50→21:49)
[2017-04-22] MEDS: Metoprolol Succinate 50 MG Tab.ER PO SCH (08:51)
--- NOTE | 2017-04-22 12:25 | PCM.PN ---
- General Info Date of Service: 04/22/17 Functional Status: Reports: pain controlled, tolerating diet, urinating - Review of Systems General: Reports: Weakness HEENT: Reports: no symptoms Pulmonary: Reports: no symptoms Cardiovascular: Reports: No Symptoms Gastrointestinal: Reports: No symptoms Genitourinary: Reports: no symptoms Musculoskeletal: Reports: no symptoms Skin: Reports: no symptoms Neurological: Reports: Difficulty Walking, Weakness, Gait Disturbance Psychiatric: Reports: no symptoms - Patient Data Vitals - most recent: Last Vital Signs Temp 36.9 C 04/22/17 08:46 Pulse 102 H 04/22/17 08:51 Resp 20 04/22/17 08:46 BP 114/46 L 04/22/17 08:51 Pulse Ox 95 04/22/17 08:46 Weight - most recent: 76.839 kg I&O - last 24 hours: Intake & Output 04/21/17 04/22/17 04/22/17 22:59 06:59 14:59 Intake Total 100 300 60 Output Total 500 Balance -400 300 60 Lab Results last 24 hrs: Laboratory Results - last 24 hr 04/21/17 04/22/17 04/22/17 Range/Units 15:35 05:35 05:45 WBC 6.63 (3.98-10.04) K/mm3 RBC 2.91 L (3.98-5.22) M/mm3 Hgb 8.3 L (11.2-15.7) gm/L Hct 27.8 L (34.1-44.9) % MCV 95.5 H (79.4-94.8) fl MCH 28.5 (25.6-32.2) pg MCHC 29.9 L (32.2-35.5) g/dl RDW Std Deviation 60.1 H (36.4-46.3) fL Plt Count 208 (182-369) K/mm3 MPV 8.7 L (9.4-12.3) fl Neut % (Auto) 55.2 (34.0-71.1) % Lymph % (Auto) 30.0 (19.3-51.7) % [place] % (Auto) 11.2 (4.7-12.5) % Eos % (Auto) 1.1 (0.7-5.8) Baso % (Auto) 0.5 (0.1-1.2) % Neut # (Auto) 3.67 (1.56-6.13) K/mm3 Lymph # (Auto) 1.99 (1.18-3.74) K/mm3 [place] # (Auto) 0.74 H (0.24-0.36) K/mm3 Eos # (Auto) 0.07 (0.04-0.36) K/mm3 Baso # (Auto) 0.03 (0.01-0.08) K/mm3 Manual Slide Review Abnormal smear Sodium 140 (136-145) mEq/L Potassium 4.5 (3.5-5.1) mEq/L Chloride 108 H (98-107) mEq/L Carbon Dioxide 20 L (21-32) mEq/L Anion Gap 16.5 H (5-15) BUN TNP Creatinine 2.2 H (0.55-1.02) mg/dL Est Cr Clr Drug Dosing 16.44 mL/min Estimated GFR (MDRD) 21 (>60) mL/min BUN/Creatinine Ratio 30.0 H (14-18) Glucose TNP Calcium TNP Magnesium 1.9 (1.8-2.4) mg/dl Urine Color Yellow (Yellow) Urine Appearance Clear (Clear) Urine pH 6.0 (5.0-8.0) Ur Specific [place] 1.025 (1.005-1.030) Urine Protein 2+ H (Negative) Urine Glucose (UA) Negative (Negative) Urine Ketones Negative (Negative) Urine Occult Blood 1+ H (Negative) Urine Nitrite Negative (Negative) Urine Bilirubin Negative (Negative) Urine Urobilinogen 0.2 (0.2-1.0) Ur Leukocyte Esterase Negative (Negative) Urine RBC 5-10 H (0-5) /hpf Urine WBC 0-5 (0-5) /hpf Ur Epithelial Cells 0-5 (0-5) /hpf Amorphous Sediment Few H (NOT SEEN) /hpf Urine Bacteria Few (FEW) /hpf Urine Mucus Few (FEW) /hpf Med Orders - Current: Current Medications Acetaminophen (Tylenol) 650 mg PO Q4H PRN PRN Reason: Pain (Mild 1-3)/fever Last Admin: 04/21/17 14:13 Dose: 650 mg Acetaminophen (Tylenol) 650 mg RECTAL Q4H PRN PRN Reason: Fever Last Admin: 04/20/17 22:57 Dose: 650 mg Hydrocodone Bitart/Acetaminophen ([place] 325-5 Mg) 2 tab PO QAM [facility] Last Admin: 04/22/17 08:50 Dose: 2 tab Hydrocodone Bitart/Acetaminophen ([place] 325-5 Mg) 1 tab PO Q4H PRN PRN Reason: Pain (moderate 4-6) Last Admin: 04/22/17 01:31 Dose: 1 tab Albuterol (Proventil Neb Soln) 2.5 mg NEB Q2H PRN PRN Reason: Shortness Of Breath/wheezing Allopurinol (Zyloprim) 100 mg PO DAILY [facility] Last Admin: 04/22/17 08:49 Dose: 100 mg Aspirin (Halfprin) 81 mg PO DAILY [facility] Last Admin: 04/22/17 08:49 Dose: 81 mg Benzocaine/Menthol (Cepacol Sore Throat) 1 lozenge MUCMEM 5XDAY PRN PRN Reason: Sore Throat Last Admin: 04/19/17 09:21 Dose: 1 lozenge Bisacodyl (Dulcolax) 5 mg PO DAILY PRN PRN Reason: Constipation Last Admin: 04/20/17 05:29 Dose: 5 mg Bisacodyl (Dulcolax) 10 mg RECTAL DAILY PRN PRN Reason: Constipation Last Admin: 04/20/17 18:37 Dose: 10 mg Cholecalciferol (Vitamin D3) 2,000 units PO DAILY [facility] Last Admin: 04/22/17 08:49 Dose: 2,000 units Clopidogrel Bisulfate (Plavix) 75 mg PO DAILY [facility] Last Admin: 04/22/17 08:49 Dose: 75 mg Cyanocobalamin (Vitamin B12) 1,000 mcg PO DAILY [facility] Last Admin: 04/22/17 08:49 Dose: 1,000 mcg Docusate Sodium (Colace) 100 mg PO BID PRN PRN Reason: Constipation Fentanyl (Duragesic) 25 mcg TRDERM Q72H [facility] Last Admin: 04/19/17 13:16 Dose: 25 mcg Furosemide (Lasix) 20 mg PO DAILY [facility] Last Admin: 04/22/17 08:49 Dose: 20 mg Glimepiride (Amaryl) 2 mg PO DAILY [facility] Last Admin: 04/22/17 08:49 Dose: 2 mg Hydralazine HCl (Apresoline) 10 mg IVPUSH Q4H PRN PRN Reason: Hypertension Promethazine HCl 12.5 mg/ (Sodium Chloride) 50.5 mls @ 100 mls/hr IV Q6H PRN PRN Reason: Nausea/Vomiting Lidocaine (Lidoderm 5%) 700 mg TOP Q24H [facility] Last Admin: 04/22/17 06:50 Dose: 700 mg Lorazepam (Ativan) 0.5 mg PO TID [facility] Last Admin: 04/22/17 08:50 Dose: 0.5 mg Losartan Potassium (Cozaar) 25 mg PO BEDTIME [facility] Last Admin: 04/21/17 20:44 Dose: 25 mg Metoprolol Succinate (Toprol Xl) 100 mg PO DAILY [facility] Last Admin: 04/22/17 08:51 Dose: 100 mg Metoprolol Tartrate (Lopressor) 5 mg IVPUSH Q4H PRN PRN Reason: Tachycardia Mirtazapine (Remeron) 15 mg PO BEDTIME [facility] Last Admin: 04/21/17 20:44 Dose: 15 mg Miscellaneous Information (Remove Patch) 0 ea TRDERM Q24H [facility] Last Admin: 04/21/17 20:34 Dose: 1 ea Miscellaneous Information (Remove Patch) 0 ea TRDERM Q72H [facility] Ondansetron HCl (Zofran) 4 mg IV Q6H PRN PRN Reason: Nausea/Vomiting Polyethylene Glycol (Miralax) 17 gm PO DAILY PRN PRN Reason: Constipation Primidone (Mysoline) 50 mg PO BEDTIME [facility] Last Admin: 04/21/17 20:43 Dose: 50 mg Senna (Senna) 8.6 mg PO ASDIRECTED PRN PRN Reason: Constipation Senna/Docusate Sodium (Senna Plus) 1 tab PO BID PRN PRN Reason: Constipation Sitagliptin Phosphate (Januvia) 100 mg PO DAILY [facility] Last Admin: 04/22/17 08:49 Dose: 100 mg Temazepam (Restoril) 7.5 mg PO BEDTIME PRN PRN Reason: Sleep Last Admin: 04/17/17 22:57 Dose: 7.5 mg Discontinued Medications Acetaminophen (Tylenol) 650 mg PO NOW ONE Stop: 04/17/17 17:04 Last Admin: 04/17/17 17:07 Dose: 650 mg Acetaminophen (Tylenol) 600 mg RECTAL Q4H PRN PRN Reason: Fever Bumetanide (Bumex) 0.5 mg IVPUSH ONETIME ONE Stop: 04/18/17 01:01 Last Admin: 04/18/17 01:05 Dose: 0.5 mg Bumetanide (Bumex) 0.5 mg IVPUSH ONETIME ONE Stop: 04/18/17 04:01 Last Admin: 04/18/17 05:19 Dose: 0.5 mg Fentanyl (Duragesic) 12 mcg TRDERM Q72H [facility] Last Admin: 04/18/17 08:47 Dose: 12 mcg Fentanyl (Duragesic) 12 mcg TRDERM Q72H [facility] Fentanyl (Duragesic) 25 mcg TRDERM Q72H [facility] Fentanyl (Duragesic) 18 mcg TRDERM Q72H [facility] Furosemide (Lasix) 20 mg IVPUSH NOW ONE Stop: 04/17/17 16:30 Last Admin: 04/17/17 16:49 Dose: 20 mg Furosemide (Lasix) 20 mg IVPUSH ONETIME ONE Stop: 04/17/17 18:19 Last Admin: 04/18/17 00:33 Dose: Not Given Sodium Chloride (Normal Saline) 500 mls @ 250 mls/hr IV .BOLUS ONE Stop: 04/17/17 18:26 Last Admin: 04/17/17 16:49 Dose: 250 mls/hr Sodium Chloride (Normal Saline) Confirm Administered Dose 250 mls @ as directed .ROUTE .STK-MED ONE Stop: 04/17/17 21:01 Last Admin: 04/17/17 23:00 Dose: 250 ml Sodium Chloride (Normal Saline) Confirm Administered Dose 250 mls @ as directed .ROUTE .STK-MED ONE Stop: 04/18/17 00:29 Last Admin: 04/18/17 01:10 Dose: 250 ml Sodium Chloride (Normal Saline) Confirm Administered Dose 250 mls @ as directed .ROUTE .STK-MED ONE Stop: 04/18/17 05:17 Last Admin: 04/18/17 06:17 Dose: 250 ml Magnesium Sulfate 2 gm/ Premix 50 mls @ 25 mls/hr IV ONETIME ONE Stop: 04/18/17 14:44 Last Admin: 04/18/17 14:11 Dose: 25 mls/hr Lidocaine (Lidoderm 5%) 700 mg TOP Q24H [facility] Last Admin: 04/18/17 07:33 Dose: Not Given Lorazepam (Ativan) 0.25 mg PO QAM [facility] Last Admin: 04/18/17 08:49 Dose: 0.25 mg Lorazepam (Ativan) 0.5 mg PO BEDTIME [facility] Last Admin: 04/18/17 20:03 Dose: 0.5 mg Lorazepam (Ativan) 0.25 mg IV Q6H PRN PRN Reason: Anxiety Magnesium Sulfate (Pharmacy To Dose - Magnesium Replacement) 1 dose .XX ASDIRECTED [facility] Mirtazapine (Remeron) 15 mg PO ONETIME ONE Stop: 04/19/17 07:31 Last Admin: 04/19/17 06:32 Dose: 15 mg Miscellaneous Information (Remove Patch) 1 ea TRDERM Q72H [facility] Last Admin: 04/18/17 08:52 Dose: 1 ea Non-Formulary Medication (Acetaminophen) 500 mg PO Q6HR PRN PRN Reason: Pain Non-Formulary Medication (Losartan) 25 mg PO DAILY [facility] B&C/Fa/Zinc/Copper Oxide/Vit E [Stress B-Complex Tablet] 0 each PO DAILY [facility] Last Admin: 04/18/17 08:52 Dose: Not Given Mv-Mn/Lycop/Lut/Herbal [id number] [ Phytomulti Tablet] 2 Each 0 each PO DAILY [facility] Last Admin: 04/18/17 08:52 Dose: Not Given Methylphenidate Hcl [Methylphenidate Er] 36 Mg 0 each PO DAILY [facility] Last Admin: 04/18/17 08:52 Dose: Not Given Ubidecarenone [Co Q- (10] 40 Mg) 0 each PO DAILY [facility] Last Admin: 04/18/17 08:52 Dose: Not Given Potassium Chloride (Pharmacy To Dose - Potassium Replacement) 1 dose .XX ASDIRECTED [facility] Sodium Chloride (Saline Flush) 10 ml FLUSH ASDIRECTED PRN PRN Reason: Keep Vein Open Last Admin: 04/17/17 16:15 Dose: 10 ml - Exam Quality Assessment: DVT prophylaxis General: alert, oriented, no acute distress HEENT: Pupils equal, Pupils reactive, EOMI Neck: supple, trachea midline, no JVD Lungs: Normal respiratory effort, Decreased breath sounds Cardiovascular: Regular Rate, Regular Rhythm Abdomen: bowel sounds present, soft, no tenderness, no distension (Female) Exam: Deferred Back Exam: Normal Inspection Extremities: normal pulses Skin: warm Neurological: no new focal deficit Psy/Mental Status: alert - Problem List Review Problem List Initiated/Reviewed/Updated: Yes - My Orders Last 24 Hours: My Active Orders 04/21/17 12:45 Insert Urinary Catheter [OM.PC] Q24H 04/22/17 10:27 Blood Glucose Check, Bedside [RC] BID 04/22/17 10:46 Resuscitation Status Routine - Plan Plan:: Assessment/Plan: 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 Payne after discharge - She supposed to have a BM biopsy tomorrow with Dr. Fernandez Generalized Weakness, Unchanged - 2/2 Above - Continue PT/OT T12 Compression with Pain, Improved - Spoke to Dr. Payne. it seems this may have been present a month ago when she had he skeletal survey - Patient also has hx/o Osteoporosis per daughter - Pain is not controlled, spoke to family and cautioned them about narcotic side effects with increased dose - Will increased fentanyl to 25 mcg Q72hrs from 12.5, d/c lidocaine patch and continue oral breakthrough pain Anxiety and Adjustment disoreder with depressed mood (2/2 Medical Condition) - Geriatric Depression Scale -Dr. Wood consulted: recommended Remeron 15 mg po QHS and Ativan 0.5 mg po TID, pastoral guidance and follow up if needed Resolved: S/p Symptomatic Anemia - 2/2 evolving MM +/- GI Bleed - ? Hem-occult pos per ED - Hgb 6.7 on admission - Recently had transfusion of 2 units PRBC 2 weeks ago - S/p 3 units of PRBC transfusion, Hgb is still 8.7 - No volumed overload - Consulted Dr. 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 Dr. 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
[2017-04-22] MEDS: fentaNYL 25 MCG/HR Transdermal Patch TRDERM SCH (12:30)
[2017-04-22] MEDS ORDERED: 50% Dextrose in Water 50 ML Syringe ONE (21:35)
[2017-04-22] MEDS: 50% Dextrose in Water 50 ML Syringe IVPUSH PRN (21:40)
[2017-04-22] MEDS: Primidone 50 MG Tab PO SCH (21:48)
[2017-04-22] MEDS: Losartan 25 MG Tab PO SCH (21:49)
[2017-04-22] MEDS: Mirtazapine 15 MG Tab PO SCH (21:49)
[2017-04-23] MEDS: Acetaminophen/HYDROcodone 325-5 MG Tab PO PRN (03:19)
[2017-04-23] MEDS: Lidocaine 5% 700 MG Patch TOP SCH (06:32)
[2017-04-23] MEDS: 50% Dextrose in Water 50 ML Syringe IVPUSH PRN (07:17)
[2017-04-23] MEDS: Acetaminophen/HYDROcodone 325-5 MG Tab PO SCH (09:02)
[2017-04-23] MEDS: LORazepam 0.5 MG Tab PO SCH ×4 (09:02→21:53)
[2017-04-23] MEDS: Cyanocobalamin (Vitamin B12) 1,000 MCG Tab PO SCH (09:03)
[2017-04-23] MEDS: Furosemide 20 MG Tab PO SCH (09:03)
[2017-04-23] MEDS: Allopurinol 100 MG Tab PO SCH (09:03)
[2017-04-23] MEDS: Metoprolol Succinate 50 MG Tab.ER PO SCH (09:03)
[2017-04-23] MEDS: Cholecalciferol (Vitamin D3) 1,000 Unit Tab PO SCH (09:03)
--- NOTE | 2017-04-23 09:11 | CONS ---
CONSULTING PHYSICIAN: Brett Wood MD DATE OF CONSULTATION: 04/19/2017 ADDENDUM: This is to make sure that the diagnosis is clarified. The diagnosis of the patient is secondary to her terminal diagnosis of cancer. In another words, the patient's mental health condition is secondary to her medical condition and due to a medical issue. MMODAL /[id number]
--- NOTE | 2017-04-23 10:07 | PCM.PN ---
<Rachael Locke - Last Filed: 04/23/17 10:01> - General Info Date of Service: 04/23/17 Admission Dx/Problem (Free Text): Symptomatic Anemia Patient is seen this morning with son in room. She is minimally responsive this morning. She had hypoglycemia last evening with blood sugars in the 40's, rec'd D50 IVP x 1. This morning was 77 and repeated D50 IVP. She did not eat supper last night. Last rec'd oral diabetic meds yesterday morning. Had a long discussion with son and his this morning re: course and expectations. Reviewed that per nursing reports patient has bleeding gums, discuss stopping anticoagulant- plavix and ASA. He is in agreement to this. Also review at length hypoglycemia and treatment options including starting D5W infusion/drip, continuing with D50 IVP when needed for low blood sugars, continuing with sugar checks every 2 hours or doing nothing. He understands that electing to not check sugars or give sugar medications she will likely pass , this would not be painful as he asks about this. He wishes to talk with his brother. For now elects to check sugars every 2 hours and give D50 PRN. Discussion regarding code status. He wishes comfort cares at this time. As patient is sedated and minimally responsive at present time, will make patient NPO, hold PO medications this morning. HR is in the 50's at present time --hold metoprolol and other PO meds. Will await further direction for family for further treatment wishes. Patient was scheduled for DC to [facility] today. Will hold this transfer for now due to hypoglycemia. Functional Status: Denies: tolerating diet, ambulating - Review of Systems General: Reports: Weakness Pulmonary: Reports: shortness of breath (no apparent SOB ) Neurological: Reports: Confusion, Other (minimally responsive this morning) Psychiatric: Reports: confusion, other (does not appear to be aggitated or in pain) Systems Review Comment:: ROS difficult and unable to obtain due to mental status - Patient Data Vitals - most recent: Last Vital Signs Temp 97.9 F 04/23/17 07:56 Pulse 61 04/23/17 07:58 Resp 16 04/23/17 07:56 BP 100/67 04/23/17 07:58 Pulse Ox 89 L 04/23/17 09:43 Weight - most recent: 77.201 kg I&O - last 24 hours: Intake & Output 04/22/17 04/23/17 04/23/17 22:59 06:59 14:59 Intake Total 520 518 Balance 520 518 Lab Results last 24 hrs: Laboratory Results - last 24 hr 04/22/17 04/22/17 04/23/17 Range/Units 21:24 22:02 06:37 POC Glucose 43 L 211 H 77 L (83-110) mg/dL 04/23/17 04/23/17 Range/Units 07:52 09:57 POC Glucose 210 H 100 (83-110) mg/dL Med Orders - Current: Current Medications Acetaminophen (Tylenol) 650 mg PO Q4H PRN PRN Reason: Pain (Mild 1-3)/fever Last Admin: 04/21/17 14:13 Dose: 650 mg Acetaminophen (Tylenol) 650 mg RECTAL Q4H PRN PRN Reason: Fever Last Admin: 04/20/17 22:57 Dose: 650 mg Hydrocodone Bitart/Acetaminophen ([place] 325-5 Mg) 2 tab PO QAM [facility] Last Admin: 04/23/17 09:02 Dose: Not Given Hydrocodone Bitart/Acetaminophen ([place] 325-5 Mg) 1 tab PO Q4H PRN PRN Reason: Pain (moderate 4-6) Last Admin: 04/23/17 03:19 Dose: 1 tab Albuterol (Proventil Neb Soln) 2.5 mg NEB Q2H PRN PRN Reason: Shortness Of Breath/wheezing Allopurinol (Zyloprim) 100 mg PO DAILY [facility] Last Admin: 04/23/17 09:03 Dose: Not Given Benzocaine/Menthol (Cepacol Sore Throat) 1 lozenge MUCMEM 5XDAY PRN PRN Reason: Sore Throat Last Admin: 04/19/17 09:21 Dose: 1 lozenge Bisacodyl (Dulcolax) 5 mg PO DAILY PRN PRN Reason: Constipation Last Admin: 04/20/17 05:29 Dose: 5 mg Bisacodyl (Dulcolax) 10 mg RECTAL DAILY PRN PRN Reason: Constipation Last Admin: 04/20/17 18:37 Dose: 10 mg Cholecalciferol (Vitamin D3) 2,000 units PO DAILY [facility] Last Admin: 04/23/17 09:03 Dose: Not Given Cyanocobalamin (Vitamin B12) 1,000 mcg PO DAILY [facility] Last Admin: 04/23/17 09:03 Dose: Not Given Dextrose/Water (Dextrose 50% In Water) 50 ml IVPUSH ASDIRECTED PRN PRN Reason: Hypoglycemia Last Admin: 04/23/17 07:17 Dose: 50 ml Docusate Sodium (Colace) 100 mg PO BID PRN PRN Reason: Constipation Fentanyl (Duragesic) 25 mcg TRDERM Q72H [facility] Last Admin: 04/22/17 12:30 Dose: 25 mcg Furosemide (Lasix) 20 mg PO DAILY [facility] Last Admin: 04/23/17 09:03 Dose: Not Given Hydralazine HCl (Apresoline) 10 mg IVPUSH Q4H PRN PRN Reason: Hypertension Promethazine HCl 12.5 mg/ (Sodium Chloride) 50.5 mls @ 100 mls/hr IV Q6H PRN PRN Reason: Nausea/Vomiting Lidocaine (Lidoderm 5%) 700 mg TOP Q24H [facility] Last Admin: 04/23/17 06:32 Dose: 700 mg Lorazepam (Ativan) 0.25 mg PO TID [facility] Last Admin: 04/23/17 09:02 Dose: Not Given Losartan Potassium (Cozaar) 25 mg PO BEDTIME [facility] Last Admin: 04/22/17 21:49 Dose: 25 mg Metoprolol Succinate (Toprol Xl) 100 mg PO DAILY [facility] Last Admin: 04/23/17 09:03 Dose: Not Given Metoprolol Tartrate (Lopressor) 5 mg IVPUSH Q4H PRN PRN Reason: Tachycardia Mirtazapine (Remeron) 15 mg PO BEDTIME [facility] Last Admin: 04/22/17 21:49 Dose: 15 mg Miscellaneous Information (Remove Patch) 0 ea TRDERM Q24H [facility] Last Admin: 04/22/17 19:39 Dose: 1 ea Miscellaneous Information (Remove Patch) 0 ea TRDERM Q72H [facility] Last Admin: 04/22/17 12:30 Dose: 1 ea Ondansetron HCl (Zofran) 4 mg IV Q6H PRN PRN Reason: Nausea/Vomiting Polyethylene Glycol (Miralax) 17 gm PO DAILY PRN PRN Reason: Constipation Primidone (Mysoline) 50 mg PO BEDTIME [facility] Last Admin: 04/22/17 21:48 Dose: 50 mg Senna (Senna) 8.6 mg PO ASDIRECTED PRN PRN Reason: Constipation Senna/Docusate Sodium (Senna Plus) 1 tab PO BID PRN PRN Reason: Constipation Temazepam (Restoril) 7.5 mg PO BEDTIME PRN PRN Reason: Sleep Last Admin: 04/17/17 22:57 Dose: 7.5 mg Discontinued Medications Acetaminophen (Tylenol) 650 mg PO NOW ONE Stop: 04/17/17 17:04 Last Admin: 04/17/17 17:07 Dose: 650 mg Acetaminophen (Tylenol) 600 mg RECTAL Q4H PRN PRN Reason: Fever Aspirin (Halfprin) 81 mg PO DAILY [facility] Last Admin: 04/22/17 08:49 Dose: 81 mg Bumetanide (Bumex) 0.5 mg IVPUSH ONETIME ONE Stop: 04/18/17 01:01 Last Admin: 04/18/17 01:05 Dose: 0.5 mg Bumetanide (Bumex) 0.5 mg IVPUSH ONETIME ONE Stop: 04/18/17 04:01 Last Admin: 04/18/17 05:19 Dose: 0.5 mg Clopidogrel Bisulfate (Plavix) 75 mg PO DAILY [facility] Last Admin: 04/22/17 08:49 Dose: 75 mg Dextrose/Water (Dextrose 50% In Water) Confirm Administered Dose 50 ml .ROUTE .STK-MED ONE Stop: 04/22/17 21:36 Last Admin: 04/22/17 21:50 Dose: Not Given Fentanyl (Duragesic) 12 mcg TRDERM Q72H [facility] Last Admin: 04/18/17 08:47 Dose: 12 mcg Fentanyl (Duragesic) 12 mcg TRDERM Q72H [facility] Fentanyl (Duragesic) 25 mcg TRDERM Q72H [facility] Fentanyl (Duragesic) 18 mcg TRDERM Q72H [facility] Furosemide (Lasix) 20 mg IVPUSH NOW ONE Stop: 04/17/17 16:30 Last Admin: 04/17/17 16:49 Dose: 20 mg Furosemide (Lasix) 20 mg IVPUSH ONETIME ONE Stop: 04/17/17 18:19 Last Admin: 04/18/17 00:33 Dose: Not Given Glimepiride (Amaryl) 2 mg PO DAILY [facility] Last Admin: 04/22/17 08:49 Dose: 2 mg Sodium Chloride (Normal Saline) 500 mls @ 250 mls/hr IV .BOLUS ONE Stop: 04/17/17 18:26 Last Admin: 04/17/17 16:49 Dose: 250 mls/hr Sodium Chloride (Normal Saline) Confirm Administered Dose 250 mls @ as directed .ROUTE .STK-MED ONE Stop: 04/17/17 21:01 Last Admin: 04/17/17 23:00 Dose: 250 ml Sodium Chloride (Normal Saline) Confirm Administered Dose 250 mls @ as directed .ROUTE .[facility] ONE Stop: 04/18/17 00:29 Last Admin: 04/18/17 01:10 Dose: 250 ml Sodium Chloride (Normal Saline) Confirm Administered Dose 250 mls @ as directed .ROUTE .[facility] ONE Stop: 04/18/17 05:17 Last Admin: 04/18/17 06:17 Dose: 250 ml Magnesium Sulfate 2 gm/ Premix 50 mls @ 25 mls/hr IV ONETIME ONE Stop: 04/18/17 14:44 Last Admin: 04/18/17 14:11 Dose: 25 mls/hr Lidocaine (Lidoderm 5%) 700 mg TOP Q24H [facility] Last Admin: 04/18/17 07:33 Dose: Not Given Lorazepam (Ativan) 0.25 mg PO QAM [facility] Last Admin: 04/18/17 08:49 Dose: 0.25 mg Lorazepam (Ativan) 0.5 mg PO BEDTIME [facility] Last Admin: 04/18/17 20:03 Dose: 0.5 mg Lorazepam (Ativan) 0.25 mg IV Q6H PRN PRN Reason: Anxiety Lorazepam (Ativan) 0.5 mg PO TID [facility] Last Admin: 04/22/17 21:49 Dose: 0.5 mg Magnesium Sulfate (Pharmacy To Dose - Magnesium Replacement) 1 dose .XX ASDIRECTED [facility] Mirtazapine (Remeron) 15 mg PO ONETIME ONE Stop: 04/19/17 07:31 Last Admin: 04/19/17 06:32 Dose: 15 mg Miscellaneous Information (Remove Patch) 1 ea TRDERM Q72H [facility] Last Admin: 04/18/17 08:52 Dose: 1 ea Non-Formulary Medication (Acetaminophen) 500 mg PO Q6HR PRN PRN Reason: Pain Non-Formulary Medication (Losartan) 25 mg PO DAILY [facility] B&C/Fa/Zinc/Copper Oxide/Vit E [Stress B-Complex Tablet] 0 each PO DAILY [facility] Last Admin: 04/18/17 08:52 Dose: Not Given Mv-Mn/Lycop/Lut/Herbal [id number] [ Phytomulti Tablet] 2 Each 0 each PO DAILY [facility] Last Admin: 04/18/17 08:52 Dose: Not Given Methylphenidate Hcl [Methylphenidate Er] 36 Mg 0 each PO DAILY [facility] Last Admin: 04/18/17 08:52 Dose: Not Given Ubidecarenone [Co Q- (10] 40 Mg) 0 each PO DAILY [facility] Last Admin: 04/18/17 08:52 Dose: Not Given Potassium Chloride (Pharmacy To Dose - Potassium Replacement) 1 dose .XX ASDIRECTED [facility] Sitagliptin Phosphate (Januvia) 100 mg PO DAILY [facility] Last Admin: 04/22/17 08:49 Dose: 100 mg Sodium Chloride (Saline Flush) 10 ml FLUSH ASDIRECTED PRN PRN Reason: Keep Vein Open Last Admin: 04/17/17 16:15 Dose: 10 ml - Exam General: alert (opens eyes but otherwise minimally responsive), no acute distress HEENT: Pupils equal Neck: supple Lungs: Normal respiratory effort, Decreased breath sounds Cardiovascular: Regular Rate, Regular Rhythm Abdomen: bowel sounds present (Female) Exam: Deferred Neurological: other (minimally responsive this am; does open eyes but does not verbalize to me) - Problem List & Annotations (1) Anemia SNOMED Code(s): 722332110 Code(s): D64.9 - ANEMIA, UNSPECIFIED Status: Acute Qualifiers: Anemia type: other cause Other causes of anemia: other cause, not classified Qualified Code(s): D64.89 - Other specified anemias (2) Bruising, spontaneous SNOMED Code(s): 901942045 Code(s): R23.3 - SPONTANEOUS ECCHYMOSES Status: Acute Priority: High (3) GI bleed SNOMED Code(s): 27965640 Code(s): K92.2 - GASTROINTESTINAL HEMORRHAGE, UNSPECIFIED Status: Acute Priority: High Qualifiers: GI bleed type/associated pathology: unspecified gastrointestinal hemorrhage type Qualified Code(s): K92.2 - Gastrointestinal hemorrhage, unspecified (4) Multiple myeloma in relapse SNOMED Code(s): 561179027 Code(s): C90.02 - MULTIPLE MYELOMA IN RELAPSE Status: Acute Priority: High Annotation/Comment:: suspect acute exacerbation - Problem List Review Problem List Initiated/Reviewed/Updated: Yes - My Orders Last 24 Hours: My Active Orders 04/23/17 09:00 LORazepam [Ativan] 0.25 mg PO TID - Plan Plan:: Assessment/Plan: Acute: Evolving MM from [place] [facility] (Indolent), Unchanged - Likely Malignant at this time awaiting BM Biopsy to confirm it- Defer to see Dr. Payne after discharge; She was supposed to have a BM biopsy with Dr. Fernandez but has been pending discharge. - Symptoms suggestive of MM: Anemia, Bone Lesion and possible worsening renal function (Abnormal BMP level due to interference by the paraproteins) Hypoglycemia -Oral DM agents last taken 24+ hrs ago -Discussion with son, GEOVANI re: treatment, for now will cont with blood sugar checks every 2 hours, D50 IVP PRN. Does not want D5W infusion started. Elects comfort cares at this time (as noted with blood sugar checks and D50 IVP only for now) until further discussion with family Generalized Weakness, worsening - 2/2 Above - NPO due to worsening of status/mental status T12 Compression with Pain, Improved - Fentanyl patch working better Anxiety and Adjustment disoreder with depressed mood (2/2 Medical Condition) - Geriatric Depression Scale -Dr. Wood consulted: recommended Remeron 15 mg po QHS and Ativan 0.5 mg po TID, pastoral guidance and follow up if needed ----ativan dose decreased to 0.25mg TID due to sedation. S/p Symptomatic Anemia - 2/2 evolving MM +/- GI Bleed - ? Hem-occult pos per ED - Hgb 6.7 on admission - Recently had transfusion of 2 units PRBC 2 weeks ago - S/p 3 units of PRBC transfusion, Hgb is still 8.7 ---stable - No volumed overload - Consulted Dr. 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 Dr. Vega wants her procedure done in [place]; family elects no procedures at this time. 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/15/2016 - HF protocol: diuretic, salt/fluid restrictions, Is/Os and daily weights - No acute exacerbation Chronic: HTN HLD VERDUZCO OA DM2--now with hypoglycemia as above CARLA HF With Reduced EF 40% with RWMA 11/15/2016 Anxiety/depression due to terminal illness Plan: As above Routine AM Labs Continue PT/OT -- on hold today due to worsening condition Fall Precaution SW/CM for d/c planning Recommend SNF/NH placement--SW is arranging, will await discharge pending decison on treatment for hypoglycemia from family; reviewed with son that if decision not to treat low blood sugars patient may likely pass/ today. Code status: DNR/DNI/comfort care LOS > 96 hrs for possible SNF/NH placement <Loida Duron - Last Filed: 04/24/17 12:03> - General Info Admission Dx/Problem (Free Text): See above for DC summary, probable DC 24-48 hours. - Patient Data Vitals - most recent: Last Vital Signs Temp 36.9 C 04/24/17 07:53 Pulse 76 04/24/17 08:56 Resp 16 04/24/17 07:53 BP 111/42 L 04/24/17 07:53 Pulse Ox 96 04/24/17 08:56 I&O - last 24 hours: Intake & Output 04/23/17 04/24/17 04/24/17 22:59 06:59 14:59 Intake Total 100 100 Balance 100 100 Lab Results last 24 hrs: Laboratory Results - last 24 hr 04/23/17 Range/Units 14:20 POC Glucose 76 L (83-110) mg/dL Med Orders - Current: Current Medications Discontinued Medications Acetaminophen (Tylenol) 650 mg PO NOW ONE Stop: 04/17/17 17:04 Last Admin: 04/17/17 17:07 Dose: 650 mg Acetaminophen (Tylenol) 650 mg PO Q4H PRN PRN Reason: Pain (Mild 1-3)/fever Last Admin: 04/21/17 14:13 Dose: 650 mg Acetaminophen (Tylenol) 600 mg RECTAL Q4H PRN PRN Reason: Fever Acetaminophen (Tylenol) 650 mg RECTAL Q4H PRN PRN Reason: Fever Last Admin: 04/20/17 22:57 Dose: 650 mg Hydrocodone Bitart/Acetaminophen ([place] 325-5 Mg) 2 tab PO QAM [facility] Last Admin: 04/23/17 09:02 Dose: Not Given Hydrocodone Bitart/Acetaminophen ([place] 325-5 Mg) 1 tab PO Q4H PRN PRN Reason: Pain (moderate 4-6) Last Admin: 04/23/17 03:19 Dose: 1 tab Albuterol (Proventil Neb Soln) 2.5 mg NEB Q2H PRN PRN Reason: Shortness Of Breath/wheezing Allopurinol (Zyloprim) 100 mg PO DAILY [facility] Last Admin: 04/23/17 09:03 Dose: Not Given Aspirin (Halfprin) 81 mg PO DAILY [facility] Last Admin: 04/22/17 08:49 Dose: 81 mg Benzocaine/Menthol (Cepacol Sore Throat) 1 lozenge MUCMEM 5XDAY PRN PRN Reason: Sore Throat Last Admin: 04/19/17 09:21 Dose: 1 lozenge Bisacodyl (Dulcolax) 5 mg PO DAILY PRN PRN Reason: Constipation Last Admin: 04/20/17 05:29 Dose: 5 mg Bisacodyl (Dulcolax) 10 mg RECTAL DAILY PRN PRN Reason: Constipation Last Admin: 04/20/17 18:37 Dose: 10 mg Bumetanide (Bumex) 0.5 mg IVPUSH ONETIME ONE Stop: 04/18/17 01:01 Last Admin: 04/18/17 01:05 Dose: 0.5 mg Bumetanide (Bumex) 0.5 mg IVPUSH ONETIME ONE Stop: 04/18/17 04:01 Last Admin: 04/18/17 05:19 Dose: 0.5 mg Cholecalciferol (Vitamin D3) 2,000 units PO DAILY [facility] Last Admin: 04/23/17 09:03 Dose: Not Given Clopidogrel Bisulfate (Plavix) 75 mg PO DAILY [facility] Last Admin: 04/22/17 08:49 Dose: 75 mg Cyanocobalamin (Vitamin B12) 1,000 mcg PO DAILY [facility] Last Admin: 04/23/17 09:03 Dose: Not Given Dextrose/Water (Dextrose 50% In Water) 50 ml IVPUSH ASDIRECTED PRN PRN Reason: Hypoglycemia Last Admin: 04/23/17 07:17 Dose: 50 ml Dextrose/Water (Dextrose 50% In Water) Confirm Administered Dose 50 ml .ROUTE .STK-MED ONE Stop: 04/22/17 21:36 Last Admin: 04/22/17 21:50 Dose: Not Given Docusate Sodium (Colace) 100 mg PO BID PRN PRN Reason: Constipation Fentanyl (Duragesic) 12 mcg TRDERM Q72H [facility] Last Admin: 04/18/17 08:47 Dose: 12 mcg Fentanyl (Duragesic) 12 mcg TRDERM Q72H [facility] Fentanyl (Duragesic) 25 mcg TRDERM Q72H [facility] Fentanyl (Duragesic) 18 mcg TRDERM Q72H [facility] Fentanyl (Duragesic) 25 mcg TRDERM Q72H [facility] Last Admin: 04/22/17 12:30 Dose: 25 mcg Furosemide (Lasix) 20 mg IVPUSH NOW ONE Stop: 04/17/17 16:30 Last Admin: 04/17/17 16:49 Dose: 20 mg Furosemide (Lasix) 20 mg IVPUSH ONETIME ONE Stop: 04/17/17 18:19 Last Admin: 04/18/17 00:33 Dose: Not Given Furosemide (Lasix) 20 mg PO DAILY [facility] Last Admin: 04/23/17 09:03 Dose: Not Given Glimepiride (Amaryl) 2 mg PO DAILY [facility] Last Admin: 04/22/17 08:49 Dose: 2 mg Hydralazine HCl (Apresoline) 10 mg IVPUSH Q4H PRN PRN Reason: Hypertension Sodium Chloride (Normal Saline) 500 mls @ 250 mls/hr IV .BOLUS ONE Stop: 04/17/17 18:26 Last Admin: 04/17/17 16:49 Dose: 250 mls/hr Promethazine HCl 12.5 mg/ (Sodium Chloride) 50.5 mls @ 100 mls/hr IV Q6H PRN PRN Reason: Nausea/Vomiting Sodium Chloride (Normal Saline) Confirm Administered Dose 250 mls @ as directed .ROUTE .STK-MED ONE Stop: 04/17/17 21:01 Last Admin: 04/17/17 23:00 Dose: 250 ml Sodium Chloride (Normal Saline) Confirm Administered Dose 250 mls @ as directed .ROUTE .STK-MED ONE Stop: 04/18/17 00:29 Last Admin: 04/18/17 01:10 Dose: 250 ml Sodium Chloride (Normal Saline) Confirm Administered Dose 250 mls @ as directed .ROUTE .STK-MED ONE Stop: 04/18/17 05:17 Last Admin: 04/18/17 06:17 Dose: 250 ml Magnesium Sulfate 2 gm/ Premix 50 mls @ 25 mls/hr IV ONETIME ONE Stop: 04/18/17 14:44 Last Admin: 04/18/17 14:11 Dose: 25 mls/hr Lidocaine (Lidoderm 5%) 700 mg TOP Q24H [facility] Last Admin: 04/18/17 07:33 Dose: Not Given Lidocaine (Lidoderm 5%) 700 mg TOP Q24H [facility] Last Admin: 04/24/17 06:43 Dose: 700 mg Lorazepam (Ativan) 0.25 mg PO QAM [facility] Last Admin: 04/18/17 08:49 Dose: 0.25 mg Lorazepam (Ativan) 0.5 mg PO BEDTIME [facility] Last Admin: 04/18/17 20:03 Dose: 0.5 mg Lorazepam (Ativan) 0.25 mg IV Q6H PRN PRN Reason: Anxiety Lorazepam (Ativan) 0.5 mg PO TID [facility] Last Admin: 04/22/17 21:49 Dose: 0.5 mg Lorazepam (Ativan) 0.25 mg PO TID [facility] Last Admin: 04/24/17 08:44 Dose: Not Given Losartan Potassium (Cozaar) 25 mg PO BEDTIME [facility] Last Admin: 04/22/17 21:49 Dose: 25 mg Magnesium Sulfate (Pharmacy To Dose - Magnesium Replacement) 1 dose .XX ASDIRECTED [facility] Metoprolol Succinate (Toprol Xl) 100 mg PO DAILY [facility] Last Admin: 04/23/17 09:03 Dose: Not Given Metoprolol Tartrate (Lopressor) 5 mg IVPUSH Q4H PRN PRN Reason: Tachycardia Mirtazapine (Remeron) 15 mg PO ONETIME ONE Stop: 04/19/17 07:31 Last Admin: 04/19/17 06:32 Dose: 15 mg Mirtazapine (Remeron) 15 mg PO BEDTIME [facility] Last Admin: 04/22/17 21:49 Dose: 15 mg Miscellaneous Information (Remove Patch) 1 ea TRDERM Q72H [facility] Last Admin: 04/18/17 08:52 Dose: 1 ea Miscellaneous Information (Remove Patch) 0 ea TRDERM Q24H [facility] Last Admin: 04/24/17 01:48 Dose: 1 ea Miscellaneous Information (Remove Patch) 0 ea TRDERM Q72H [facility] Last Admin: 04/22/17 12:30 Dose: 1 ea Morphine Sulfate (Morphine) 2 mg IVPUSH Q2H PRN PRN Reason: Pain Last Admin: 04/24/17 08:23 Dose: 2 mg Non-Formulary Medication (Acetaminophen) 500 mg PO Q6HR PRN PRN Reason: Pain Non-Formulary Medication (Losartan) 25 mg PO DAILY [facility] Ondansetron HCl (Zofran) 4 mg IV Q6H PRN PRN Reason: Nausea/Vomiting B&C/Fa/Zinc/Copper Oxide/Vit E [Stress B-Complex Tablet] 0 each PO DAILY [facility] Last Admin: 04/18/17 08:52 Dose: Not Given Mv-Mn/Lycop/Lut/Herbal [id number] [ Phytomulti Tablet] 2 Each 0 each PO DAILY [facility] Last Admin: 04/18/17 08:52 Dose: Not Given Methylphenidate Hcl [Methylphenidate Er] 36 Mg 0 each PO DAILY [facility] Last Admin: 04/18/17 08:52 Dose: Not Given Ubidecarenone [Co Q- (10] 40 Mg) 0 each PO DAILY [facility] Last Admin: 04/18/17 08:52 Dose: Not Given Polyethylene Glycol (Miralax) 17 gm PO DAILY PRN PRN Reason: Constipation Potassium Chloride (Pharmacy To Dose - Potassium Replacement) 1 dose .XX ASDIRECTED [facility] Primidone (Mysoline) 50 mg PO BEDTIME [facility] Last Admin: 04/22/17 21:48 Dose: 50 mg Senna (Senna) 8.6 mg PO ASDIRECTED PRN PRN Reason: Constipation Senna/Docusate Sodium (Senna Plus) 1 tab PO BID PRN PRN Reason: Constipation Sitagliptin Phosphate (Januvia) 100 mg PO DAILY [facility] Last Admin: 04/22/17 08:49 Dose: 100 mg Sodium Chloride (Saline Flush) 10 ml FLUSH ASDIRECTED PRN PRN Reason: Keep Vein Open Last Admin: 04/17/17 16:15 Dose: 10 ml Temazepam (Restoril) 7.5 mg PO BEDTIME PRN PRN Reason: Sleep Last Admin: 04/17/17 22:57 Dose: 7.5 mg
--- NOTE | 2017-04-23 13:14 | PCM.SN ---
- Free Text/Narrative Note: Son and family have made decision for comfort care at this time for patient. Blood sugar is 76; will stop checks and medications at this time. [facility].
[2017-04-23] MEDS: Morphine 2 MG/ML Syringe IVPUSH PRN ×2 (15:10→20:27)
[2017-04-24] MEDS: Morphine 2 MG/ML Syringe IVPUSH PRN ×2 (01:47→08:23)
--- NOTE | 2017-04-24 06:27 | PCM.DCSUM1 ---
<Rachael Locke - Last Filed: 04/24/17 06:22> Discharge Summary - Hospital Course Free Text/Narrative:: This is an 86 yo pleasant elderly white female with past medical hx/o HTN, HD, HF with Reduced EF 40% 11/15/2016, Chronic SOB, CARLA, DM2, OA, Anxiety, CARLA, and Hx/o [place] CA who comes in with complaints of increasing generalized weakness associated with fatigue, and decreased appetite. In the past couple of nights patient slid out of bed and EMS had to help her get up. Patient also report back pain with hx/o T12 fracture. She denies any fever, chills, nausea, vomiting, hematemesis, shortness of breath, chest pain, GI bleed, black tarry stools, or urinary issues. Patient carries a hx/o monoclonal gammopathy i.e. Asymptomatic/Indolent MM. She has being followed Dr. Payne at [facility]. She is schedule to have a BM biopsy in the morning with Dr. Fernandez. Her initial work up in ED shows a CBC remarkable for Hgb 6.7 and Hct 21.8. Her platelet is normal. Her chemistry is significant for CO2 19 and BNP 1650. The rest of her chemistry were incomplete due to interference from her paraproteins level. UA is not impressive for UTI. Patient is being admitted for Symptomatic Anemia. She is DNR/DNI at this time. - Discharge Data Discharge Date: 04/24/17 (admit date 04/17/17) Discharge Disposition: DC/Tfer to [facility] Condition: Good - Discharge Diagnosis/Problem(s) (1) Anemia SNOMED Code(s): 999215904 ICD Code: D64.9 - ANEMIA, UNSPECIFIED Status: Acute Qualifiers: Anemia type: other cause Other causes of anemia: other cause, not classified Qualified Code(s): D64.89 - Other specified anemias (2) Bruising, spontaneous SNOMED Code(s): 631702350 ICD Code: R23.3 - SPONTANEOUS ECCHYMOSES Status: Acute Priority: High (3) GI bleed SNOMED Code(s): 23544454 ICD Code: K92.2 - GASTROINTESTINAL HEMORRHAGE, UNSPECIFIED Status: Acute Priority: High Qualifiers: GI bleed type/associated pathology: unspecified gastrointestinal hemorrhage type Qualified Code(s): K92.2 - Gastrointestinal hemorrhage, unspecified (4) Multiple myeloma in relapse SNOMED Code(s): 783336042 ICD Code: C90.02 - MULTIPLE MYELOMA IN RELAPSE Status: Acute Priority: High Problem Details: suspect acute exacerbation (5) CHF (congestive heart failure) SNOMED Code(s): 17901996 ICD Code: I50.9 - HEART FAILURE, UNSPECIFIED Status: Acute Priority: High Qualifiers: Congestive heart failure type: unspecified congestive heart failure type Congestive heart failure chronicity: acute on chronic Qualified Code(s): I50.9 - Heart failure, unspecified (6) Guaiac positive stools SNOMED Code(s): 63868151, 080343470 ICD Code: R19.5 - OTHER FECAL ABNORMALITIES Status: Acute Priority: High (7) Nasal bleeding SNOMED Code(s): 23491448, 661682766 ICD Code: R04.0 - EPISTAXIS Status: Resolved Priority: High - Patient Summary/Data Operative Procedure(s) Performed: None Complications: None Consults: Consultations 04/17/17 19:56 Consult to Case Management [CONS] Routine Consult to Physician [CONS] Routine -- Dr. Fernandez, General Surgery Consult to Treatment Technician [CONS] Routine Consult to Spiritual Care [CONS] Routine 04/18/17 17:04 Consult to Physician [CONS] Routine - Dr. Wood, Psychiatry Labs Pending at D/C: None Recommended Follow-up Testing/Procedures: Follow up with Dr. Barrera, PCP within one week of discharge Planned Operative Procedure(s) after DC: None--Recommended EGD/Colonoscopy eval per Dr. Fernandez-- She spoke to Dr. Bird, patient's [facility] who recommends any procedures be done in [place] due to high risk for bleeding, platelet availability and poor EF. Patient and family elect no further evaluation/workup and Comfort Care at this time. Hospital Course: As above - Patient Instructions Diet: Usual Diet as Tolerated, Drink 8-10+ Glasses/Day Activity: As Tolerated Driving: Do Not Drive Showering/Bathing: May Shower Notify Provider of: Fever, Increased Pain, Swelling and Redness, Nausea and/or Vomiting - Discharge Plan Prescriptions/Med Rec: Acetaminophen/HYDROcodone [[place] 325-5 MG] 1 tab PO Q4H PRN #30 tablet PRN Reason: Pain LORazepam [Ativan] 0.25 mg PO TID #60 tablet fentaNYL [Duragesic] 25 mcg TRDERM Q72H #1 box Home Medications: Home Meds Sennosides [Senna] 2 tab PO ASDIRECTED PRN 11/14/16 [History] Lidocaine 5% [Lidoderm 5%] 1 patch TOP Q24H 04/04/17 [History] Acetaminophen [Tylenol] 650 mg PO Q4H PRN #0 tablet 04/24/17 [Rx] Acetaminophen [Tylenol] 650 mg RECTAL Q4H PRN #0 supp 04/24/17 [Rx] Acetaminophen/HYDROcodone [[place] 325-5 MG] 1 tab PO Q4H PRN #30 tablet 04/24/17 [Rx] Bisacodyl [Dulcolax] 10 mg RECTAL DAILY PRN #0 supp 04/24/17 [Rx] LORazepam [Ativan] 0.25 mg PO TID #60 tablet 04/24/17 [Rx] fentaNYL [Duragesic] 25 mcg TRDERM Q72H #1 box 04/24/17 [Rx] Patient Handouts: Blood Transfusion, [id number], Heart Failure, [id number] Forms: ED Department Discharge Referrals: Santana Page MD [Primary Care Provider] - - Discharge Summary/Plan Comment DC Time >30 min.: Yes (40 min) - General Info Date of Service: 04/24/17 Admission Dx/Problem (Free Text: Symptomatic Anemia Janeth is seen this morning, resting comfortably. She arouses easily but falls back asleep and does not verbalize. Family is present in room. Plans for DC to [place] today with comfort cares at this time. Functional Status: Reports: pain controlled, tolerating diet (did eat few bites of supper last evening), urinating (incontinent). Denies: ambulating - Review of Systems General: Denies: Fever Pulmonary: Denies: shortness of breath, cough Systems Review Comment: ROS difficult to obtain due to mental status at this time. - Patient Data Vitals - Most Recent: Last Vital Signs Temp 98.6 F 04/23/17 20:07 Pulse 82 04/23/17 20:07 Resp 20 04/23/17 20:07 BP 112/34 L 04/23/17 20:07 Pulse Ox 92 L 04/23/17 20:07 Weight - Most Recent: 77.201 kg I&O - Last 24 hours: Intake & Output 04/23/17 04/23/17 04/24/17 14:59 22:59 06:59 Intake Total 0 100 Balance 0 100 Lab Results - Last 24 hrs: Laboratory Results - last 24 hr 04/23/17 04/23/17 04/23/17 Range/Units 06:37 07:52 09:57 POC Glucose 77 L 210 H 100 (83-110) mg/dL 04/23/17 04/23/17 Range/Units 11:56 14:20 POC Glucose 76 L 76 L (83-110) mg/dL Med Orders - Current: Current Medications Acetaminophen (Tylenol) 650 mg PO Q4H PRN PRN Reason: Pain (Mild 1-3)/fever Last Admin: 04/21/17 14:13 Dose: 650 mg Acetaminophen (Tylenol) 650 mg RECTAL Q4H PRN PRN Reason: Fever Last Admin: 04/20/17 22:57 Dose: 650 mg Hydrocodone Bitart/Acetaminophen ([place] 325-5 Mg) 1 tab PO Q4H PRN PRN Reason: Pain (moderate 4-6) Last Admin: 04/23/17 03:19 Dose: 1 tab Bisacodyl (Dulcolax) 10 mg RECTAL DAILY PRN PRN Reason: Constipation Last Admin: 04/20/17 18:37 Dose: 10 mg Fentanyl (Duragesic) 25 mcg TRDERM Q72H [facility] Last Admin: 04/22/17 12:30 Dose: 25 mcg Lidocaine (Lidoderm 5%) 700 mg TOP Q24H [facility] Last Admin: 04/23/17 06:32 Dose: 700 mg Lorazepam (Ativan) 0.25 mg PO TID [facility] Last Admin: 04/23/17 21:53 Dose: 0.25 mg Miscellaneous Information (Remove Patch) 0 ea TRDERM Q24H [facility] Last Admin: 04/24/17 01:48 Dose: 1 ea Miscellaneous Information (Remove Patch) 0 ea TRDERM Q72H [facility] Last Admin: 04/22/17 12:30 Dose: 1 ea Morphine Sulfate (Morphine) 2 mg IVPUSH Q2H PRN PRN Reason: Pain Last Admin: 04/24/17 01:47 Dose: 2 mg Ondansetron HCl (Zofran) 4 mg IV Q6H PRN PRN Reason: Nausea/Vomiting Senna (Senna) 8.6 mg PO ASDIRECTED PRN PRN Reason: Constipation Discontinued Medications Acetaminophen (Tylenol) 650 mg PO NOW ONE Stop: 04/17/17 17:04 Last Admin: 04/17/17 17:07 Dose: 650 mg Acetaminophen (Tylenol) 600 mg RECTAL Q4H PRN PRN Reason: Fever Hydrocodone Bitart/Acetaminophen ([place] 325-5 Mg) 2 tab PO QAM [facility] Last Admin: 04/23/17 09:02 Dose: Not Given Albuterol (Proventil Neb Soln) 2.5 mg NEB Q2H PRN PRN Reason: Shortness Of Breath/wheezing Allopurinol (Zyloprim) 100 mg PO DAILY [facility] Last Admin: 04/23/17 09:03 Dose: Not Given Aspirin (Halfprin) 81 mg PO DAILY [facility] Last Admin: 04/22/17 08:49 Dose: 81 mg Benzocaine/Menthol (Cepacol Sore Throat) 1 lozenge MUCMEM 5XDAY PRN PRN Reason: Sore Throat Last Admin: 04/19/17 09:21 Dose: 1 lozenge Bisacodyl (Dulcolax) 5 mg PO DAILY PRN PRN Reason: Constipation Last Admin: 04/20/17 05:29 Dose: 5 mg Bumetanide (Bumex) 0.5 mg IVPUSH ONETIME ONE Stop: 04/18/17 01:01 Last Admin: 04/18/17 01:05 Dose: 0.5 mg Bumetanide (Bumex) 0.5 mg IVPUSH ONETIME ONE Stop: 04/18/17 04:01 Last Admin: 04/18/17 05:19 Dose: 0.5 mg Cholecalciferol (Vitamin D3) 2,000 units PO DAILY [facility] Last Admin: 04/23/17 09:03 Dose: Not Given Clopidogrel Bisulfate (Plavix) 75 mg PO DAILY [facility] Last Admin: 04/22/17 08:49 Dose: 75 mg Cyanocobalamin (Vitamin B12) 1,000 mcg PO DAILY [facility] Last Admin: 04/23/17 09:03 Dose: Not Given Dextrose/Water (Dextrose 50% In Water) 50 ml IVPUSH ASDIRECTED PRN PRN Reason: Hypoglycemia Last Admin: 04/23/17 07:17 Dose: 50 ml Dextrose/Water (Dextrose 50% In Water) Confirm Administered Dose 50 ml .ROUTE .STK-MED ONE Stop: 04/22/17 21:36 Last Admin: 04/22/17 21:50 Dose: Not Given Docusate Sodium (Colace) 100 mg PO BID PRN PRN Reason: Constipation Fentanyl (Duragesic) 12 mcg TRDERM Q72H [facility] Last Admin: 04/18/17 08:47 Dose: 12 mcg Fentanyl (Duragesic) 12 mcg TRDERM Q72H [facility] Fentanyl (Duragesic) 25 mcg TRDERM Q72H [facility] Fentanyl (Duragesic) 18 mcg TRDERM Q72H [facility] Furosemide (Lasix) 20 mg IVPUSH NOW ONE Stop: 04/17/17 16:30 Last Admin: 04/17/17 16:49 Dose: 20 mg Furosemide (Lasix) 20 mg IVPUSH ONETIME ONE Stop: 04/17/17 18:19 Last Admin: 04/18/17 00:33 Dose: Not Given Furosemide (Lasix) 20 mg PO DAILY [facility] Last Admin: 04/23/17 09:03 Dose: Not Given Glimepiride (Amaryl) 2 mg PO DAILY [facility] Last Admin: 04/22/17 08:49 Dose: 2 mg Hydralazine HCl (Apresoline) 10 mg IVPUSH Q4H PRN PRN Reason: Hypertension Sodium Chloride (Normal Saline) 500 mls @ 250 mls/hr IV .BOLUS ONE Stop: 04/17/17 18:26 Last Admin: 04/17/17 16:49 Dose: 250 mls/hr Promethazine HCl 12.5 mg/ (Sodium Chloride) 50.5 mls @ 100 mls/hr IV Q6H PRN PRN Reason: Nausea/Vomiting Sodium Chloride (Normal Saline) Confirm Administered Dose 250 mls @ as directed .ROUTE .STK-MED ONE Stop: 04/17/17 21:01 Last Admin: 04/17/17 23:00 Dose: 250 ml Sodium Chloride (Normal Saline) Confirm Administered Dose 250 mls @ as directed .ROUTE .STK-MED ONE Stop: 04/18/17 00:29 Last Admin: 04/18/17 01:10 Dose: 250 ml Sodium Chloride (Normal Saline) Confirm Administered Dose 250 mls @ as directed .ROUTE .STK-MED ONE Stop: 04/18/17 05:17 Last Admin: 04/18/17 06:17 Dose: 250 ml Magnesium Sulfate 2 gm/ Premix 50 mls @ 25 mls/hr IV ONETIME ONE Stop: 04/18/17 14:44 Last Admin: 04/18/17 14:11 Dose: 25 mls/hr Lidocaine (Lidoderm 5%) 700 mg TOP Q24H [facility] Last Admin: 04/18/17 07:33 Dose: Not Given Lorazepam (Ativan) 0.25 mg PO QAM [facility] Last Admin: 04/18/17 08:49 Dose: 0.25 mg Lorazepam (Ativan) 0.5 mg PO BEDTIME [facility] Last Admin: 04/18/17 20:03 Dose: 0.5 mg Lorazepam (Ativan) 0.25 mg IV Q6H PRN PRN Reason: Anxiety Lorazepam (Ativan) 0.5 mg PO TID [facility] Last Admin: 04/22/17 21:49 Dose: 0.5 mg Losartan Potassium (Cozaar) 25 mg PO BEDTIME [facility] Last Admin: 04/22/17 21:49 Dose: 25 mg Magnesium Sulfate (Pharmacy To Dose - Magnesium Replacement) 1 dose .XX ASDIRECTED [facility] Metoprolol Succinate (Toprol Xl) 100 mg PO DAILY [facility] Last Admin: 04/23/17 09:03 Dose: Not Given Metoprolol Tartrate (Lopressor) 5 mg IVPUSH Q4H PRN PRN Reason: Tachycardia Mirtazapine (Remeron) 15 mg PO ONETIME ONE Stop: 04/19/17 07:31 Last Admin: 04/19/17 06:32 Dose: 15 mg Mirtazapine (Remeron) 15 mg PO BEDTIME [facility] Last Admin: 04/22/17 21:49 Dose: 15 mg Miscellaneous Information (Remove Patch) 1 ea TRDERM Q72H [facility] Last Admin: 04/18/17 08:52 Dose: 1 ea Non-Formulary Medication (Acetaminophen) 500 mg PO Q6HR PRN PRN Reason: Pain Non-Formulary Medication (Losartan) 25 mg PO DAILY [facility] B&C/Fa/Zinc/Copper Oxide/Vit E [Stress B-Complex Tablet] 0 each PO DAILY [facility] Last Admin: 04/18/17 08:52 Dose: Not Given Mv-Mn/Lycop/Lut/Herbal Fing814 [ Phytomulti Tablet] 2 Each 0 each PO DAILY [facility] Last Admin: 04/18/17 08:52 Dose: Not Given Methylphenidate Hcl [Methylphenidate Er] 36 Mg 0 each PO DAILY [facility] Last Admin: 04/18/17 08:52 Dose: Not Given Ubidecarenone [Co Q- (10] 40 Mg) 0 each PO DAILY [facility] Last Admin: 04/18/17 08:52 Dose: Not Given Polyethylene Glycol (Miralax) 17 gm PO DAILY PRN PRN Reason: Constipation Potassium Chloride (Pharmacy To Dose - Potassium Replacement) 1 dose .XX ASDIRECTED [facility] Primidone (Mysoline) 50 mg PO BEDTIME [facility] Last Admin: 04/22/17 21:48 Dose: 50 mg Senna/Docusate Sodium (Senna Plus) 1 tab PO BID PRN PRN Reason: Constipation Sitagliptin Phosphate (Januvia) 100 mg PO DAILY [facility] Last Admin: 04/22/17 08:49 Dose: 100 mg Sodium Chloride (Saline Flush) 10 ml FLUSH ASDIRECTED PRN PRN Reason: Keep Vein Open Last Admin: 04/17/17 16:15 Dose: 10 ml Temazepam (Restoril) 7.5 mg PO BEDTIME PRN PRN Reason: Sleep Last Admin: 04/17/17 22:57 Dose: 7.5 mg - Exam Quality Assessment: Reports: supplemental oxygen. Denies: DVT prophylaxis ( refuses to wear teds/SCD's, plavix and ASA have been dc'd due to bleeding gums/ comfort cares at this time) General: Reports: alert (arouses easily), no acute distress HEENT: Reports: Pupils equal, EOMI Lungs: Reports: Clear to auscultation, Normal respiratory effort, Decreased breath sounds (mid to lower lobes) Cardiovascular: Reports: Regular Rate, Regular Rhythm, Murmurs (grade 2 systolic ) Abdomen: Reports: bowel sounds present, soft (Female) Exam: Deferred Rectal (Female) Exam: Deferred Skin: Reports: warm, dry Neurological: Reports: other (arouses easily, opens eyes when spoken to this morning but does not verbalize. ) Psy/Mental Status: Denies: agitated *Q Meaningful Use (DIS) - VTE *Q VTE Criteria *Q: - Stroke *Q Stroke Criteria *Q: - AMI *Q AMI Criteria *Q: <Lakesha Duronmynor Garcia - Last Filed: 04/24/17 14:41> Discharge Summary - Hospital Course Free Text/Narrative:: Ok to transfer, summary as outlined. - Patient Summary/Data Consults: Consultations 04/17/17 19:56 Consult to Case Management [CONS] Routine Consult to Physician [CONS] Routine Consult to Treatment Technician [CONS] Routine Consult to Spiritual Care [CONS] Routine 04/18/17 17:04 Consult to Physician [CONS] Routine - Patient Data Vitals - Most Recent: Last Vital Signs Temp 36.9 C 04/24/17 07:53 Pulse 76 04/24/17 08:56 Resp 16 04/24/17 07:53 BP 111/42 L 04/24/17 07:53 Pulse Ox 96 04/24/17 08:56 I&O - Last 24 hours: Intake & Output 04/23/17 04/24/17 04/24/17 22:59 06:59 14:59 Intake Total 100 100 Balance 100 100 Med Orders - Current: Current Medications Discontinued Medications Acetaminophen (Tylenol) 650 mg PO NOW ONE Stop: 04/17/17 17:04 Last Admin: 04/17/17 17:07 Dose: 650 mg Acetaminophen (Tylenol) 650 mg PO Q4H PRN PRN Reason: Pain (Mild 1-3)/fever Last Admin: 04/21/17 14:13 Dose: 650 mg Acetaminophen (Tylenol) 600 mg RECTAL Q4H PRN PRN Reason: Fever Acetaminophen (Tylenol) 650 mg RECTAL Q4H PRN PRN Reason: Fever Last Admin: 04/20/17 22:57 Dose: 650 mg Hydrocodone Bitart/Acetaminophen ([place] 325-5 Mg) 2 tab PO QAM [facility] Last Admin: 04/23/17 09:02 Dose: Not Given Hydrocodone Bitart/Acetaminophen ([place] 325-5 Mg) 1 tab PO Q4H PRN PRN Reason: Pain (moderate 4-6) Last Admin: 04/23/17 03:19 Dose: 1 tab Albuterol (Proventil Neb Soln) 2.5 mg NEB Q2H PRN PRN Reason: Shortness Of Breath/wheezing Allopurinol (Zyloprim) 100 mg PO DAILY [facility] Last Admin: 04/23/17 09:03 Dose: Not Given Aspirin (Halfprin) 81 mg PO DAILY [facility] Last Admin: 04/22/17 08:49 Dose: 81 mg Benzocaine/Menthol (Cepacol Sore Throat) 1 lozenge MUCMEM 5XDAY PRN PRN Reason: Sore Throat Last Admin: 04/19/17 09:21 Dose: 1 lozenge Bisacodyl (Dulcolax) 5 mg PO DAILY PRN PRN Reason: Constipation Last Admin: 04/20/17 05:29 Dose: 5 mg Bisacodyl (Dulcolax) 10 mg RECTAL DAILY PRN PRN Reason: Constipation Last Admin: 04/20/17 18:37 Dose: 10 mg Bumetanide (Bumex) 0.5 mg IVPUSH ONETIME ONE Stop: 04/18/17 01:01 Last Admin: 04/18/17 01:05 Dose: 0.5 mg Bumetanide (Bumex) 0.5 mg IVPUSH ONETIME ONE Stop: 04/18/17 04:01 Last Admin: 04/18/17 05:19 Dose: 0.5 mg Cholecalciferol (Vitamin D3) 2,000 units PO DAILY [facility] Last Admin: 04/23/17 09:03 Dose: Not Given Clopidogrel Bisulfate (Plavix) 75 mg PO DAILY [facility] Last Admin: 04/22/17 08:49 Dose: 75 mg Cyanocobalamin (Vitamin B12) 1,000 mcg PO DAILY [facility] Last Admin: 04/23/17 09:03 Dose: Not Given Dextrose/Water (Dextrose 50% In Water) 50 ml IVPUSH ASDIRECTED PRN PRN Reason: Hypoglycemia Last Admin: 04/23/17 07:17 Dose: 50 ml Dextrose/Water (Dextrose 50% In Water) Confirm Administered Dose 50 ml .ROUTE .STK-MED ONE Stop: 04/22/17 21:36 Last Admin: 04/22/17 21:50 Dose: Not Given Docusate Sodium (Colace) 100 mg PO BID PRN PRN Reason: Constipation Fentanyl (Duragesic) 12 mcg TRDERM Q72H [facility] Last Admin: 04/18/17 08:47 Dose: 12 mcg Fentanyl (Duragesic) 12 mcg TRDERM Q72H [facility] Fentanyl (Duragesic) 25 mcg TRDERM Q72H [facility] Fentanyl (Duragesic) 18 mcg TRDERM Q72H [facility] Fentanyl (Duragesic) 25 mcg TRDERM Q72H [facility] Last Admin: 04/22/17 12:30 Dose: 25 mcg Furosemide (Lasix) 20 mg IVPUSH NOW ONE Stop: 04/17/17 16:30 Last Admin: 04/17/17 16:49 Dose: 20 mg Furosemide (Lasix) 20 mg IVPUSH ONETIME ONE Stop: 04/17/17 18:19 Last Admin: 04/18/17 00:33 Dose: Not Given Furosemide (Lasix) 20 mg PO DAILY [facility] Last Admin: 04/23/17 09:03 Dose: Not Given Glimepiride (Amaryl) 2 mg PO DAILY [facility] Last Admin: 04/22/17 08:49 Dose: 2 mg Hydralazine HCl (Apresoline) 10 mg IVPUSH Q4H PRN PRN Reason: Hypertension Sodium Chloride (Normal Saline) 500 mls @ 250 mls/hr IV .BOLUS ONE Stop: 04/17/17 18:26 Last Admin: 04/17/17 16:49 Dose: 250 mls/hr Promethazine HCl 12.5 mg/ (Sodium Chloride) 50.5 mls @ 100 mls/hr IV Q6H PRN PRN Reason: Nausea/Vomiting Sodium Chloride (Normal Saline) Confirm Administered Dose 250 mls @ as directed .ROUTE .STK-MED ONE Stop: 04/17/17 21:01 Last Admin: 04/17/17 23:00 Dose: 250 ml Sodium Chloride (Normal Saline) Confirm Administered Dose 250 mls @ as directed .ROUTE .STK-MED ONE Stop: 04/18/17 00:29 Last Admin: 04/18/17 01:10 Dose: 250 ml Sodium Chloride (Normal Saline) Confirm Administered Dose 250 mls @ as directed .ROUTE .STK-MED ONE Stop: 04/18/17 05:17 Last Admin: 04/18/17 06:17 Dose: 250 ml Magnesium Sulfate 2 gm/ Premix 50 mls @ 25 mls/hr IV ONETIME ONE Stop: 04/18/17 14:44 Last Admin: 04/18/17 14:11 Dose: 25 mls/hr Lidocaine (Lidoderm 5%) 700 mg TOP Q24H [facility] Last Admin: 04/18/17 07:33 Dose: Not Given Lidocaine (Lidoderm 5%) 700 mg TOP Q24H [facility] Last Admin: 04/24/17 06:43 Dose: 700 mg Lorazepam (Ativan) 0.25 mg PO QAM [facility] Last Admin: 04/18/17 08:49 Dose: 0.25 mg Lorazepam (Ativan) 0.5 mg PO BEDTIME [facility] Last Admin: 04/18/17 20:03 Dose: 0.5 mg Lorazepam (Ativan) 0.25 mg IV Q6H PRN PRN Reason: Anxiety Lorazepam (Ativan) 0.5 mg PO TID [facility] Last Admin: 04/22/17 21:49 Dose: 0.5 mg Lorazepam (Ativan) 0.25 mg PO TID [facility] Last Admin: 04/24/17 08:44 Dose: Not Given Losartan Potassium (Cozaar) 25 mg PO BEDTIME [facility] Last Admin: 04/22/17 21:49 Dose: 25 mg Magnesium Sulfate (Pharmacy To Dose - Magnesium Replacement) 1 dose .XX ASDIRECTED [facility] Metoprolol Succinate (Toprol Xl) 100 mg PO DAILY [facility] Last Admin: 04/23/17 09:03 Dose: Not Given Metoprolol Tartrate (Lopressor) 5 mg IVPUSH Q4H PRN PRN Reason: Tachycardia Mirtazapine (Remeron) 15 mg PO ONETIME ONE Stop: 04/19/17 07:31 Last Admin: 04/19/17 06:32 Dose: 15 mg Mirtazapine (Remeron) 15 mg PO BEDTIME [facility] Last Admin: 04/22/17 21:49 Dose: 15 mg Miscellaneous Information (Remove Patch) 1 ea TRDERM Q72H [facility] Last Admin: 04/18/17 08:52 Dose: 1 ea Miscellaneous Information (Remove Patch) 0 ea TRDERM Q24H [facility] Last Admin: 04/24/17 01:48 Dose: 1 ea Miscellaneous Information (Remove Patch) 0 ea TRDERM Q72H [facility] Last Admin: 04/22/17 12:30 Dose: 1 ea Morphine Sulfate (Morphine) 2 mg IVPUSH Q2H PRN PRN Reason: Pain Last Admin: 04/24/17 08:23 Dose: 2 mg Non-Formulary Medication (Acetaminophen) 500 mg PO Q6HR PRN PRN Reason: Pain Non-Formulary Medication (Losartan) 25 mg PO DAILY [facility] Ondansetron HCl (Zofran) 4 mg IV Q6H PRN PRN Reason: Nausea/Vomiting B&C/Fa/Zinc/Copper Oxide/Vit E [Stress B-Complex Tablet] 0 each PO DAILY [facility] Last Admin: 04/18/17 08:52 Dose: Not Given Mv-Mn/Lycop/Lut/Herbal [id number] [ Phytomulti Tablet] 2 Each 0 each PO DAILY [facility] Last Admin: 04/18/17 08:52 Dose: Not Given Methylphenidate Hcl [Methylphenidate Er] 36 Mg 0 each PO DAILY [facility] Last Admin: 04/18/17 08:52 Dose: Not Given Ubidecarenone [Co Q- (10] 40 Mg) 0 each PO DAILY [facility] Last Admin: 04/18/17 08:52 Dose: Not Given Polyethylene Glycol (Miralax) 17 gm PO DAILY PRN PRN Reason: Constipation Potassium Chloride (Pharmacy To Dose - Potassium Replacement) 1 dose .XX ASDIRECTED [facility] Primidone (Mysoline) 50 mg PO BEDTIME [facility] Last Admin: 04/22/17 21:48 Dose: 50 mg Senna (Senna) 8.6 mg PO ASDIRECTED PRN PRN Reason: Constipation Senna/Docusate Sodium (Senna Plus) 1 tab PO BID PRN PRN Reason: Constipation Sitagliptin Phosphate (Januvia) 100 mg PO DAILY [facility] Last Admin: 04/22/17 08:49 Dose: 100 mg Sodium Chloride (Saline Flush) 10 ml FLUSH ASDIRECTED PRN PRN Reason: Keep Vein Open Last Admin: 04/17/17 16:15 Dose: 10 ml Temazepam (Restoril) 7.5 mg PO BEDTIME PRN PRN Reason: Sleep Last Admin: 04/17/17 22:57 Dose: 7.5 mg *Q Meaningful Use (DIS) - VTE *Q VTE Criteria *Q: - Stroke *Q Stroke Criteria *Q: - AMI *Q AMI Criteria *Q:
[2017-04-24] MEDS: Lidocaine 5% 700 MG Patch TOP SCH (06:43)
[2017-04-24] MEDS: LORazepam 0.5 MG Tab PO SCH ×2 (08:25→08:44)
[2017-04-24 11:30] VITALS: BP 111/42
== END 2017-04-24 09:14 | DRG 812 ==
LOC: JD.ED 15:28 → JD.MS 18:28
PROVIDERS: ADMIT Internal Medicine; ATTEND Internal Medicine
PROC: 30233N1 Transfusion of Nonautologous Red Blood Cells into Peripheral Vein, Percutaneous Approach (ICD-10-PCS; principal; 2017-04-18)
DX: D62 Acute posthemorrhagic anemia (principal); K92.2 Gastrointestinal hemorrhage, unspecified; C90.02 Multiple myeloma in relapse; I50.20 Unspecified systolic (congestive) heart failure; R23.3 Spontaneous ecchymoses; R19.5 Other fecal abnormalities; C90.00 Multiple myeloma not having achieved remission; I50.9 Heart failure, unspecified; R04.0 Epistaxis; I10 Essential (primary) hypertension; E11.9 Type 2 diabetes mellitus without complications; E78.00 Pure hypercholesterolemia, unspecified; F41.9 Anxiety disorder, unspecified; I25.10 Atherosclerotic heart disease of native coronary artery without angina pectoris; M54.9 Dorsalgia, unspecified; F32.9 Major depressive disorder, single episode, unspecified; Z88.8 Allergy status to other drugs, medicaments and biological substances; Z79.899 Other long term (current) drug therapy; Z66 Do not resuscitate; Z51.5 Encounter for palliative care
CPT/HCPCS: 36415; 80053; 81001; 83880; 84443; 84484; 85025; 86850; 86900; 86901; 86922; 87086; 93005; 96361; 96374; 99285; A9270; J1940; J7040; J7050; 36430; 80048; 82962; 83735; 94761; 97162-GP; 97166-GO; 97530-GO; 97530-GP; J2270; J3475; J7060; P9016